=== PATIENT | male | born 1965 | race Asian ===

== ENCOUNTER 2025-02-13 15:23 | Outpatient (AMB) | payer MEDICARE, BC, SELFPAY ==
--- OUTSIDE RECORDS SUMMARY | 2025-02-13 10:25 | XMS_ITS | Continuity of Care Document ---
Author Name [facility] Organization [facility] Care Team Providers Care Acoustical Engineer Name Role Phone [facility] Unavailable Unavailable Problems Combined list of problems from Department of Defense and Veterans Affairs facilities. It does not include entries that were removed or entered in error. Problem Status Onset Date Problem Type Date of Resolution Comments Source Back pain Active 000 Condition December 09, 2024 Entered By: MARIE ARMANDO Comment: Herniated Disc L4-5 1999 [facility] Anxiety Active Condition [facility] Asthma (SCT [id number]) Active Condition [facility] Galeana esophagus Active Condition 2024 Entered By: MELONIE LYNN Comment: routine EGDs per gastro [facility] Bilateral hearing loss Active Condition Jan 02, 2025 Entered By: MELONIE LYNN Comment: getting hearing aids [facility] Chronic back pain Active Condition [facility] Chronic post-traumatic stress disorder Active Condition [facility] Exposure to Hepatitis B virus Active Condition Jan 02, 2025 Entered By: MELONIE LYNN Comment: follows w/ Gastro/ annual viral loads [facility] Gastroesophageal reflux disease Active Condition [facility] Hypercholesterolemia Active Condition [facility] Kidney stone Active Condition Jan 02, 2025 Entered By: MELONIE LYNN Comment: x 2 s/p stone extraction 2022 [facility] Large prostate Active Condition November 272024 Entered By: MARIE ARMANDO Comment: with surg [facility] Laser Enucleation of the prostateMay 2024 Entered By: MARIE ARMANDO Comment: TURP 2024 [facility] Overactive Urinary Bladder ([facility] [id number]) Active Condition Jan 02, 2025 Entered By: MELONIE LYNN Comment: mariah w Urol ([facility]) [facility] Psoriasis Active Condition [facility] Diagnosis: ICD-10-CM F43.12 Post-traumatic stress disorder, chronic Active Diagnosis [facility] Diagnosis: ICD-10-CM Z46.1 Encounter for fitting and adjustment of hearing aid Active Diagnosis [facility] Diagnosis: ICD-10-CM F41.9 Anxiety disorder, unspecified Active Diagnosis [facility] Diagnosis: ICD-10-CM H90.3 Sensorineural hearing loss, bilateral Active Diagnosis [facility] Diagnosis: ICD-10-CM Z02.89 Encounter for other administrative examinations Active Diagnosis [facility] Medications Combined list of outpatient medications from Department of Defense and Veterans Affairs facilities.Medications provided include 1) outpatient medications from the last 15 months, and 2) patient-reported medications. Medication Details Route Status Patient Instructions Prescription Expires Prescription Number Last Dispense Date Ordering Provider Order Date Order Qty Source APREMILAST 30MG TAB TAKE ONE TABLET BY MOUTH TWICE DAILY ORAL ACTIVE EVON LEAL 2024 [facility] ESCITALOPRA M OXALATE 20MG TAB TAKE ONE-HALF TABLET BY MOUTH ONCE DAILY ORAL ACTIVE EVON LEAL 2024 [facility] IBUPROFEN TAB TAKE 200 MG BY MOUTH EVERY 8 HOURS NEEDED ORAL ACTIVE EVON LEAL 2024 [facility] MIRABEGRON 50MG TAB,SA TAKE ONE TABLET BY MOUTH TWICE DAILY ORAL ACTIVE [facility]ON LEAL 2024 [facility] OMEPRAZOLE 20MG CAP,EC TAKE 2 CAPSULES BY MOUTH EVERY MORNING 30 MINUTES BEFORE BREAKFAS T ORAL ACTIVE [facility]EV[facility] SEGOVIAZABETH 2024 [facility] ROSUVASTATI N CA 10MG TAB TAKE ONE-HALF TABLET BY MOUTH ONCE DAILY ORAL ACTIVE [facility],EVON RUSSOBETH 2024 [facility] TADALAFIL 5MG TAB TAKE ONE TABLET BY MOUTH NEEDED ORAL ACTIVE [facility],EVON RUSSOBETH 2024 [facility] TROSPIUM CL 20MG TAB TAKE ONE TABLET BY MOUTH ONCE DAILY ORAL ACTIVE [facility],EVON RUSSOBETH 2024 [facility] Allergies, Adverse Reactions, Alerts Combined list of allergies from Department of Defense and Veterans Affairs facilities. It does not include entries that were removed or entered in error. Substance Category Reaction Severity Reaction type Status Date Reported Comments Source CONTRAST MEDIA Propensity to adverse reactions to drug (finding) Eruption active [facility] Immunizations Combined list of available immunizations from the Department of Defense and Veterans Affairs facilities. Immunization Series Date Given Administered By Site Reaction Lot Number CVX Code Drug Clerical Grader Status Comments Source INFLUENZA, UNSPECIFIED FORMULATION 2023 88 complet ed HISTORICA L INFORMATI ON - FROM OTHER [facility] Results Combined list of recent chemistry, hematology and other laboratory results from Department of Defense and Veterans Affairs, ranging from 15 months to all on record, depending upon the facility. Order Name Results Value Reference Range Date Interpretation Specimen Comments Source HEPATITI S Be ANTIBODY (QU) HEPATITIS B VIRUS E AB [PRESENCE] IN SERUM Reactive 12/09 Specimen Type: SERUM Comment: normalcy status - Abnormal Reference range: Nonreactive For additional information , please refer to [email or web address] (This link is being provided for information al/ educational purposes only.) Test Performed by [facility], [facility], [address] [place], [place] Arturo Coello M.D., Ph.D., Director of Laboratorie s , CLIA [id number] TEST PERFORMED AT: , Ordering Provider: KAITLYNN EASTON Report Released Date/Time: December 09, 2024 10:31 AM Reporting Lab: [facility] [place] [facility] [address] [facility] [address] Performing Lab: [place] [facility] [place] [facility] [address] [facility] [place] [facility] CBC LEUKOCYTES [#/VOLUME] IN BLOOD BY AUTOMATED COUNT 4.38 10*3/uL 4.50 - 11.00 12/09 L Specimen Type: BLOOD No comment entered. Ordering Provider: KAITLYNN EASTON Report Released Date/Time: December 09, 2024 10:31 AM Reporting Lab: [place] [facility] [place] [facility] [address] [facility] [address] Performing Lab: [facility] [place] [facility] [address] [facility] [address] [facility] [place] [facility] CBC ERYTHROCYT ES [#/VOLUME] IN BLOOD BY AUTOMATED COUNT 5.36 10*6/uL 4.23 - 5.66 12/09 Specimen Type: BLOOD No comment entered. Ordering Provider: KAITLYNN EASTON Report Released Date/Time: December 09, 2024 10:31 AM Reporting Lab: [place] [facility] [place] [facility] [address] [facility] [address] Performing Lab: [place] [facility] [place] [facility] [address] [facility] [address] [facility] [place] [facility] CBC HEMOGLOBIN [MASS/VOLU ME] IN BLOOD 15.2 g/dL 12.8 - 17 12/09 Specimen Type: BLOOD No comment entered. Ordering Provider: KAITLYNN EASTON Report Released Date/Time: December 09, 2024 10:31 AM Reporting Lab: [facility] [address] [facility] [address] Performing Lab: [facility] [address] [facility] [address] [facility] [place] [facility] CBC HEMATOCRIT [VOLUME FRACTION] OF BLOOD BY AUTOMATED COUNT 45.9 39.2 - 50.4 12/09 Specimen Type: BLOOD No comment entered. Ordering Provider: KAITLYNN EASTON Report Released Date/Time: December 09, 2024 10:31 AM Reporting Lab: [facility] [address] [facility] [address] Performing Lab: [facility] [address] [facility] [address] [facility] [place] [facility] CBC MCV [ENTITIC VOLUME] BY AUTOMATED COUNT 85.6 fL 82 - 99 12/09 Specimen Type: BLOOD No comment entered. Ordering Provider: KAITLYNN EASTON Report Released Date/Time: December 09, 2024 10:31 AM Reporting Lab: [facility] [address] [facility] [address] Performing Lab: [facility] [address] [facility] [address] [facility] [place] [facility] CBC MCHC [MASS/VOLU ME] BY AUTOMATED COUNT 33.1 g/dL 30.8 - 35.1 12/09 Specimen Type: BLOOD No comment entered. Ordering Provider: KAITLYNN EASTON Report Released Date/Time: December 09, 2024 10:31 AM Reporting Lab: [facility] [address] [facility] [address] Performing Lab: [facility] [address] [facility] [address] [facility] [place] [facility] CBC PLATELETS [#/VOLUME] IN BLOOD BY AUTOMATED COUNT 217 10*3/uL 140 - 360 12/09 Specimen Type: BLOOD No comment entered. Ordering Provider: KAITLYNN EASTON Report Released Date/Time: December 09, 2024 10:31 AM Reporting Lab: [facility] [place] [facility] [address] [facility] [address] Performing Lab: [facility] [place] [facility] [address] [facility] [address] [facility] [place] [facility] CBC PLATELET MEAN VOLUME [ENTITIC VOLUME] IN BLOOD BY AUTOMATED COUNT 10.5 fL 9.2 - 12.4 12/09 Specimen Type: BLOOD No comment entered. Ordering Provider: KAITLYNN EASTON Report Released Date/Time: December 09, 2024 10:31 AM Reporting Lab: [facility] [place] [facility] [address] [facility] [address] Performing Lab: [facility] [place] [facility] [address] [facility] [address] [facility] [place] [facility] CBC ERYTHROCYT E DISTRIBUTI ON WIDTH [RATIO] BY AUTOMATED COUNT 13.2 12.0 - 16.0 12/09 Specimen Type: BLOOD No comment entered. Ordering Provider: KAITLYNN EASTON Report Released Date/Time: December 09, 2024 10:31 AM Reporting Lab: [facility] [place] [facility] [address] [facility] [address] Performing Lab: [facility] [place] [facility] [address] [facility] [address] [facility] [place] [facility] CBC MCH [ENTITIC MASS] BY AUTOMATED COUNT 28.4 pg 26.2 - 32.6 12/09 Specimen Type: BLOOD No comment entered. Ordering Provider: KAITLYNN EASTON Report Released Date/Time: December 09, 2024 10:31 AM Reporting Lab: [facility] [place] [facility] [address] [facility] [address] Performing Lab: [facility] [address] [facility] [address] [facility] LIVER FUNCTION PROTEIN [MASS/VOLU ME] IN SERUM OR PLASMA 7.6 g/dL 6.4 - 8.3 12/09 Specimen Type: SERUM No comment entered. Ordering Provider: KAITLYNN EASTON Report Released Date/Time: December 09, 2024 10:31 AM Reporting Lab: [facility] [place] [facility] [address] [facility] [address] Performing Lab: [facility] [place] [facility] [address] [facility] [address] [facility] LIVER FUNCTION ALBUMIN [MASS/VOLU ME] IN SERUM OR PLASMA BY BROMOCRESO L PURPLE (BCP) DYE BINDING METHOD 4.5 g/dL 3.5 - 5.2 12/09 Specimen Type: SERUM No comment entered. Ordering Provider: KAITLYNN EASTON Report Released Date/Time: December 09, 2024 10:31 AM Reporting Lab: [facility] [place] [facility] [address] [facility] [address] Performing Lab: [facility] [place] [facility] [address] [facility] [address] [facility] LIVER FUNCTION ALKALINE PHOSPHATAS E [ENZYMATIC ACTIVITY/V OLUME] IN SERUM OR PLASMA 65 U/L 40 - 150 12/09 Specimen Type: SERUM No comment entered. Ordering Provider: KAITLYNN EASTON Report Released Date/Time: December 09, 2024 10:31 AM Reporting Lab: [facility] [address] [facility] [address] Performing Lab: [facility] [place] [facility] [address] [facility] [address] [facility] [place] [facility] LIVER FUNCTION ASPARTATE AMINOTRANS FERASE [ENZYMATIC ACTIVITY/V OLUME] IN SERUM OR PLASMA BY WITH P-5'-P 25 U/L 5 - 34 12/09 Specimen Type: SERUM No comment entered. Ordering Provider: KAITLYNN EASTON Report Released Date/Time: December 09, 2024 10:31 AM Reporting Lab: [facility] [place] [facility] [address] [facility] [address] Performing Lab: [place] [facility] [place] [facility] [address] [facility] [address] [facility] [facility] LIVER FUNCTION ALANINE AMINOTRANS FERASE [ENZYMATIC ACTIVITY/V OLUME] IN SERUM OR PLASMA BY WITH P-5'-P 37 U/L 0 - 55 12/09 Specimen Type: SERUM No comment entered. Ordering Provider: KAITLYNN EASTON Report Released Date/Time: December 09, 2024 10:31 AM Reporting Lab: [facility] [place] [facility] [address] [facility] [address] Performing Lab: [place] [facility] [place] [facility] [address] [facility] [address] [facility] LIVER FUNCTION BILIRUBIN. TOTAL [MASS/VOLU ME] IN SERUM OR PLASMA 0.7 mg/dL 0.2 - 1.2 12/09 Specimen Type: SERUM No comment entered. Ordering Provider: KAITLYNN EASTON Report Released Date/Time: December 09, 2024 10:31 AM Reporting Lab: [facility] [place] [facility] [address] [facility] [address] Performing Lab: [place] [facility] [place] [place] [facility] [address] [facility] [address] [facility] [place] [facility] BASIC METABOLI C PANEL (fasting ) UREA NITROGEN [MASS/VOLU ME] IN SERUM OR PLASMA 22 mg/dL 8 - 26 12/09 Specimen Type: SERUM No comment entered. Ordering Provider: KAITLYNN EASTON Report Released Date/Time: December 09, 2024 10:31 AM Reporting Lab: [facility] [place] [facility] [address] [facility] [address] Performing Lab: [facility] [place] [facility] [address] [facility] [address] [facility] [place] [facility] BASIC METABOLI C PANEL (fasting ) GLUCOSE [MASS/VOLU ME] IN SERUM OR PLASMA 90 mg/dL 65 - 100 12/09 Specimen Type: SERUM No comment entered. Ordering Provider: KAITLYNN EASTON Report Released Date/Time: December 09, 2024 10:31 AM Reporting Lab: [facility] [place] [facility] [address] [facility] [address] Performing Lab: [place] [facility] [facility] [address] [facility] [address] [facility] BASIC METABOLI C PANEL (fasting ) SODIUM [MOLES/VOL UME] IN SERUM OR PLASMA 141 mmol/L 136 - 145 12/09 Specimen Type: SERUM No comment entered. Ordering Provider: KAITLYNN EASTON Report Released Date/Time: December 09, 2024 10:31 AM Reporting Lab: [facility] [place] [facility] [address] [facility] [address] Performing Lab: [facility] [place] [facility] [address] [facility] [address] [facility] [place] [facility] BASIC METABOLI C PANEL (fasting ) POTASSIUM [MOLES/VOL UME] IN SERUM OR PLASMA 4.2 mmol/L 3.5 - 5.1 12/09 Specimen Type: SERUM No comment entered. Ordering Provider: KAITLYNN EASTON Report Released Date/Time: December 09, 2024 10:31 AM Reporting Lab: [facility] [place] [facility] [address] [facility] [address] Performing Lab: [facility] [facility] [address] [facility] [address] [facility] [place] [facility] BASIC METABOLI C PANEL (fasting ) CHLORIDE [MOLES/VOL UME] IN SERUM OR PLASMA 108 mmol/L 98 - 107 12/09 H Specimen Type: SERUM No comment entered. Ordering Provider: KAITLYNN EASTON Report Released Date/Time: December 09, 2024 10:31 AM Reporting Lab: [facility] [place] [facility] [address] [facility] [address] Performing Lab: [place] [facility] [address] [facility] [address] [facility] BASIC METABOLI C PANEL (fasting ) CARBON DIOXIDE, TOTAL [MOLES/VOL UME] IN SERUM OR PLASMA 26 meq/L 22 - 29 12/09 Specimen Type: SERUM No comment entered. Ordering Provider: KAITLYNN EASTON Report Released Date/Time: December 09, 2024 10:31 AM Reporting Lab: [facility] [place] [address] [address] Performing Lab: [facility] [address] [address] [facility] BASIC METABOLI C PANEL (fasting ) CALCIUM [MASS/VOLU ME] IN SERUM OR PLASMA 9.9 mg/dL 8.4 - 10.2 12/09 Specimen Type: SERUM No comment entered. Ordering Provider: KAITLYNN EASTON Report Released Date/Time: December 09, 2024 10:31 AM Reporting Lab: [place] [facility] [place] [address] [address] Performing Lab: [place] [facility] [place] [address] [address] [facility] BASIC METABOLI C PANEL (fasting ) CREATININE [MASS/VOLU ME] IN SERUM OR PLASMA 0.99 mg/dL 0.72 - 1.25 12/09 Specimen Type: SERUM No comment entered. Ordering Provider: KAITLYNN EASTON Report Released Date/Time: December 09, 2024 10:31 AM Reporting Lab: [facility] [place] [facility] [address] [facility] [address] Performing Lab: [facility] [place] [facility] [address] [facility] [address] [facility] [place] [facility] BASIC METABOLI C PANEL (fasting ) GLOMERULAR FILTRATION RATE/1.73 SQ M.PREDICTE D [VOLUME RATE/AREA] IN SERUM, PLASMA OR BLOOD BY CREATININE -BASED FORMULA (CKD-EPI 2020) 88 mL/min 60 12/09 Specimen Type: SERUM No comment entered. Ordering Provider: KAITLYNN EASTON Report Released Date/Time: December 09, 2024 10:31 AM Reporting Lab: [facility] [place] [facility] [address] [facility] [address] Performing Lab: [place] [facility] [place] [facility] [address] [facility] [address] [place] [facility] [place] [facility] LIPID PANEL FASTING CHOLESTERO L [MASS/VOLU ME] IN SERUM OR PLASMA 217 mg/dL 12/09 H Specimen Type: SERUM No comment entered. Ordering Provider: KAITLYNN EASTON Report Released Date/Time: December 09, 2024 10:31 AM Reporting Lab: [facility] [place] [address] [address] Performing Lab: [facility] [place] [facility] [address] [facility] [address] [facility] [place] [facility] LIPID PANEL FASTING TRIGLYCERI DE [MASS/VOLU ME] IN SERUM OR PLASMA 76 mg/dL 0 - 150 12/09 Specimen Type: SERUM No comment entered. Ordering Provider: KAITLYNN EASTON Report Released Date/Time: December 09, 2024 10:31 AM Reporting Lab: [facility] [place] [facility] [address] [facility] [address] Performing Lab: [facility] [place] [place] [address] [address] [place] [facility] [place] [facility] LIPID PANEL FASTING CHOLESTERO L IN LDL [MASS/VOLU ME] IN SERUM OR PLASMA BY CALCULATAWANNA N 149 mg/dL 0 - 129 12/09 H Specimen Type: SERUM No comment entered. Ordering Provider: KAITLYNN EASTON Report Released Date/Time: December 09, 2024 10:31 AM Reporting Lab: [facility] [place] [facility] [address] [facility] [address] Performing Lab: [facility] [place] [facility] [address] [facility] [address] [place] [facility] [place] [facility] LIPID PANEL FASTING CHOLESTERO L.TOTAL/CH OLESTEROL IN HDL [MASS RATIO] IN SERUM OR PLASMA 4.1 12/09 Specimen Type: SERUM No comment entered. Ordering Provider: KAITLYNN EASTON Report Released Date/Time: December 09, 2024 10:31 AM Reporting Lab: [facility] [place] [facility] [address] [facility] [address] Performing Lab: [facility] [place] [facility] [address] [facility] [address] [facility] [place] [facility] LIPID PANEL FASTING CHOLESTERO L IN HDL [MASS/VOLU ME] IN SERUM OR PLASMA 53 mg/dL 40 12/09 Specimen Type: SERUM No comment entered. Ordering Provider: KAITLYNN EASTON Report Released Date/Time: December 09, 2024 10:31 AM Reporting Lab: [facility] [place] [facility] [address] [facility] [address] Performing Lab: [facility] [place] [facility] [address] [facility] [address] [facility] [place] [facility] PSA PROSTATE SPECIFIC AG [MASS/VOLU ME] IN SERUM OR PLASMA BY IMMUNOASSA Y 0.9 ng/mL 0.0 - 4.0 12/09 Specimen Type: SERUM No comment entered. Ordering Provider: KAITLYNN EASTON Report Released Date/Time: December 09, 2024 10:31 AM Reporting Lab: [facility] [place] [facility] [address] [facility] [address] Performing Lab: [facility] [place] [facility] [address] [facility] [address] [facility] [place] URINALYS IS COLOR OF URINE Light-Ye llow 12/09 Specimen Type: URINE Comment: If Glucose = >500 and Ketones are positive, please alert the Physician. Ordering Provider: KAITLYNN EASTON Report Released Date/Time: December 09, 2024 10:31 AM Reporting Lab: [facility] [place] [facility] [address] [facility] [address] Performing Lab: [facility] [place] [facility] [address] [facility] [address] [facility] [place] [facility] URINALYS IS APPEARANCE OF URINE Clear 12/09 Specimen Type: URINE Comment: If Glucose = >500 and Ketones are positive, please alert the Physician. Ordering Provider: KAITLYNN EASTON Report Released Date/Time: December 09, 2024 10:31 AM Reporting Lab: [facility] [place] [facility] [address] [facility] [address] Performing Lab: [facility] [place] [facility] [address] [facility] [address] [facility] [place] [facility] URINALYS IS GLUCOSE [MASS/VOLU ME] IN URINE Normalmg /dL 12/09 Specimen Type: URINE Comment: If Glucose = >500 and Ketones are positive, please alert the Physician. Ordering Provider: KAITLYNN EASTON Report Released Date/Time: December 09, 2024 10:31 AM Reporting Lab: [facility] [address] [facility] [id number] Performing Lab: [facility] [address] [facility] [id number] [facility] URINALYS IS KETONES [MASS/VOLU ME] IN URINE BY TEST STRIP NEGATIVE mg/dL 12/09 Specimen Type: URINE Comment: If Glucose = >500 and Ketones are positive, please alert the Physician. Ordering Provider: KAITLYNN EASTON Report Released Date/Time: December 09, 2024 10:31 AM Reporting Lab: [facility] [address] [facility] [address] Performing Lab: [facility] [address] [facility] [address] [facility] URINALYS IS ERYTHROCYT ES [PRESENCE] IN URINE SEDIMENT BY LIGHT MICROSCOPY NEGATIVE mg/dL 12/09 Specimen Type: URINE Comment: If Glucose = >500 and Ketones are positive, please alert the Physician. Ordering Provider: KAITLYNN EASTON Report Released Date/Time: December 09, 2024 10:31 AM Reporting Lab: [facility] [place] [facility] [address] [facility] [address] Performing Lab: [facility] [address] [facility] [address] [facility] URINALYS IS PROTEIN [MASS/VOLU ME] IN URINE BY TEST STRIP 20 mg/dL 12/09 Specimen Type: URINE Comment: If Glucose = >500 and Ketones are positive, please alert the Physician. Ordering Provider: KAITLYNN EASTON Report Released Date/Time: December 09, 2024 10:31 AM Reporting Lab: [facility] [address] [facility] [address] Performing Lab: [facility] [address] [facility] [address] [facility] URINALYS IS NITRITE [PRESENCE] IN URINE NEGATIVE mg/dL 12/09 Specimen Type: URINE Comment: If Glucose = >500 and Ketones are positive, please alert the Physician. Ordering Provider: KAITLYNN EASTON Report Released Date/Time: December 09, 2024 10:31 AM Reporting Lab: [facility] [place] [facility] [address] [facility] [address] Performing Lab: [facility] [place] [facility] [address] [facility] [address] [facility] URINALYS IS BILIRUBIN. TOTAL [PRESENCE] IN URINE NEGATIVE mg/dL 12/09 Specimen Type: URINE Comment: If Glucose = >500 and Ketones are positive, please alert the Physician. Ordering Provider: KAITLYNN EASTON Report Released Date/Time: December 09, 2024 10:31 AM Reporting Lab: [facility] [place] [address] [address] Performing Lab: [facility] [place] [address] [address] [facility] URINALYS IS SPECIFIC GRAVITY OF URINE BY REFRACTOME TRY 1.027 1.016 - 1.022 12/09 H Specimen Type: URINE Comment: If Glucose = >500 and Ketones are positive, please alert the Physician. Ordering Provider: KAITLYNN EASTON Report Released Date/Time: December 09, 2024 10:31 AM Reporting Lab: [facility] [place] [address] [address] Performing Lab: [facility] [place] [facility] [address] [facility] [address] [facility] [facility] URINALYS IS PH OF URINE BY TEST STRIP 7.0 5.0 - 9.0 12/09 Specimen Type: URINE Comment: If Glucose = >500 and Ketones are positive, please alert the Physician. Ordering Provider: KAITLYNN EASTON Report Released Date/Time: December 09, 2024 10:31 AM Reporting Lab: [facility] [place] [address] Performing Lab: [facility] [place] [facility] [address] [facility] [address] [facility] URINALYS IS UROBILINOG EN [MASS/VOLU ME] IN URINE BY TEST STRIP Normalmg /dL <2.0 - 2.0 12/09 Specimen Type: URINE Comment: If Glucose = >500 and Ketones are positive, please alert the Physician. Ordering Provider: KAITLYNN EASTON Report Released Date/Time: December 09, 2024 10:31 AM Reporting Lab: [facility] [place] [facility] [address] [facility] [address] Performing Lab: [facility] [place] [facility] [address] [facility] [address] [facility] URINALYS IS LEUKOCYTE ESTERASE [PRESENCE] IN URINE BY TEST STRIP SMALL 12/09 Specimen Type: URINE Comment: If Glucose = >500 and Ketones are positive, please alert the Physician. Ordering Provider: KAITLYNN EASTON Report Released Date/Time: December 09, 2024 10:31 AM Reporting Lab: [facility] [place] [facility] [address] [facility] [address] Performing Lab: [facility] [place] [facility] [address] [facility] [address] [facility] HEPATITI S C ANTIBODY (HCV)-AR C HEPATITIS C VIRUS AB [PRESENCE] IN SERUM NON-REAC TIVE 12/09 Specimen Type: SERUM Comment: Hep C Ab: No HCV antibody detected. If recent infection is suspected or other evidence suggests HCV infection, consider HCV nucleic acid testing Ordering Provider: KAITLYNN EASTON Report Released Date/Time: December 09, 2024 10:31 AM Reporting Lab: [facility] [place] [facility] [address] [facility] [address] Performing Lab: [facility] [place] [facility] [address] [facility] [address] [facility] HIV 1&2 Ag/Ab SCREEN HIV 1+2 AB+HIV1 P24 AG [PRESENCE] IN SERUM OR PLASMA BY IMMUNOASSA Y NON-REAC TIVE 12/09 Specimen Type: SERUM Comment: Hep C Ab: No HCV antibody detected. If recent infection is suspected or other evidence suggests HCV infection, consider HCV nucleic acid testing Ordering Provider: KAITLYNN EASTON Report Released Date/Time: December 09, 2024 10:31 AM Reporting Lab: [facility] [place] [facility] [address] [facility] [address] Performing Lab: [facility] [address] [facility] [address] [facility] MICROSCO PIC AUTOMATE D, URINE LEUKOCYTES [#/AREA] IN URINE SEDIMENT BY MICROSCOPY HIGH POWER FIELD 11-20/[H PF] 0 - 5 12/09 H Specimen Type: URINE Comment: If Glucose = >500 and Ketones are positive, please alert the Physician. Ordering Provider: KAITLYNN EASTON Report Released Date/Time: December 09, 2024 10:31 AM Reporting Lab: [facility] [place] [facility] [address] [facility] [address] Performing Lab: [facility] [address] [facility] [address] [facility] MICROSCO PIC AUTOMATE D, URINE MUCUS [#/AREA] IN URINE SEDIMENT BY MICROSCOPY LOW POWER FIELD FEW/[LPF ] 12/09 Specimen Type: URINE Comment: If Glucose = >500 and Ketones are positive, please alert the Physician. Ordering Provider: KAITLYNN EASTON Report Released Date/Time: December 09, 2024 10:31 AM Reporting Lab: [facility] [place] [facility] [address] [facility] [address] Performing Lab: [facility] [address] [facility] [address] [facility] MICROSCO PIC AUTOMATE D, URINE ERYTHROCYT ES [#/AREA] IN URINE SEDIMENT BY MICROSCOPY HIGH POWER FIELD 6-10/[HP F] 0 - 3 12/09 H Specimen Type: URINE Comment: If Glucose = >500 and Ketones are positive, please alert the Physician. Ordering Provider: KAITLYNN EASTON Report Released Date/Time: December 09, 2024 10:31 AM Reporting Lab: [facility] [address] [facility] [address] Performing Lab: [facility] [address] [facility] [address] [facility] Vital Signs Combined list of inpatient and outpatient Vital Signs from Department of Defense and Veterans Affairs, ranging from 12 months to all on record, depending upon the facility. Vital Sign Value Date Comments Source SYSTOLIC BLOOD PRESSURE 122 01/02/20 25 10:06:04 [facility] DIASTOLIC BLOOD PRESSURE 82 025 10:06:04 [facility] PULSE OXIMETRY 97 % 01/01/2025 10:06:04 [facility] WEIGHT 163.5 01/01/2025 10:06:04 [facility] BMI 25 kg/m2 01/01/2025 10:06:04 [facility] PAIN 3 01/01/2025 10:06:04 [facility] HEIGHT 68 01/01/2025 10:06:04 [facility] TEMPERATURE 98 01/01/2025 10:06:04 [facility] PULSE 86 01/01/2025 10:06:04 [facility] RESPIRATION 16 01/01/2025 10:06:04 [facility] SYSTOLIC BLOOD PRESSURE 156 12/10/19 25 09:15:02 [facility] DIASTOLIC BLOOD PRESSURE 98 025 09:15:02 [facility] PULSE OXIMETRY 96 12/09/2024 09:15:02 [facility] WEIGHT 162 12/09/2024 09:15:02 [facility] BMI 25 kg/m2 12/09/2024 09:15:02 [facility] PAIN 3 12/09/2024 09:15:02 [facility] HEIGHT 68 12/09/2024 09:15:02 [facility] TEMPERATURE 98 12/09/2024 09:15:02 [facility] PULSE 97 12/09/2024 09:15:02 [facility] RESPIRATION 20 12/09/2024 09:15:02 [facility] Encounters Combined list of: 1) Encounters from Department of Veterans Affairs facilities going backup to the last 18 months, not all VA inpatient encounters are included; 2) Encounters from the Department of Defense facilities going backup to 280 months. Location Location Details Encounter Type Encounter Number Reason For Visit Attending Provider ADM Date DC Date Status Disposition Source [facility] Outpatient Encounter [id number] 04/29 [facility] Outpatient Encounter [id number] Diagnos is: ICD-10- CM Z02.89 Encount er for other adminis trative examina CAMDEN Ramires 09/01 [facility] Out[facility] Encounter [id number] 12/04 [facility] Out[facility] Encounter [id number] 12/08 [facility] HEARING AID XM&SLCTN BINAURL [id number] Diagnos is: ICD-10- CM H90.3 Sensori neural hearing loss, bilater al ,DAVID OLE L 12/09 [facility] Out[facility] Encounter [id number] 12/09 [facility] OFFICE O/P NEW MOD 45 MIN [id number] Diagnos is: ICD-10- CM F41.9 Anxiety disorde r, unspeci fied PHYLICIA CAMP 01/01 [facility] CONFORMITY EVALUATION [id number] Diagnos is: ICD-10- CM Z46.1 Encount er for fitting and adjustm ent of hearing aid SENIOR,DAVID OLE L 01/01 [facility] PSYCH DIAGNOSTIC EVALUATION [id number] Diagnos is: ICD-10- CM F43.12 Post-tr aumatic stress disorde r, chronic LISA SUBRAMANIAN M 01/09 [facility] Out[facility] Encounter [id number] LISA SOARES 01/09 [facility] PSYCH DIAGNOSTIC EVALUATION [id number] Diagnos is: ICD-10- CM F43.12 Post-tr aumatic stress disorde r, chronic PAIGE AMADO 02/03 [facility] Social History Combined list of available smoking, tobacco, and other social history from Department of Defense and Veterans Affairs facilities. Social History Type Response Date Comment Sourc e Tobacco smoking status NHIS AL-TOBACCO NEVER USED CIGARETTES 12/08/2024 [facility] History of tobacco use AL-TOBACCO NEVER USED OTHER TYPE 12/08/2024 [facility] Plan of Care List of future care activities from Department of Veterans Affairs facilities. Additional future care activities may be listed in the Assessment and Plan section. Date/Time Care Activity Care Activity Detail Facili ty 06/16/2025 AMBULATORY - MEDICINE AMBULATORY - MEDICI NE [facility]
--- OUTSIDE RECORDS SUMMARY | 2025-02-13 15:26 | XMS_ITS | Data Portability ---
Author Organization [facility] Address [address] [place] [address] Care Team Providers Care Drum Handler Name Role Phone CHERYL SENIOR Primary Care Provider [phone] CHERYL SENIOR Referring Provider Assessment Encounter Date Assessment Date Assessment LastModified by Organization Details LastModified Time 12/06/2023 12/06/2023 58 year old M presenting to discuss history of his multiple prostate procedures and upcoming plan for urocuff procedure. Sending referral for second opinion. Refilling current medications. [email or web address] Not available 12/14/2023 11:46:05 03/25/2024 03/25/2024 58 yo M here for CPE and pre op. [email or web address] Not available 03/26/2024 07:47:16 Plan of Treatment Reminders Order Date Submit Date Provider Last Modified By Organization Details Last Modified Time Details Appointments PCP-Phys ical-30 Min 2024 03:30P M CHERYL SENIOR MD Not available Not available Not available Lab culture, urine 2024 025 [facility], [address] [place], [address], 09/08/2024 03:19:02 urinalys is, dipstick , reflex micro 2024 025 [employer] [facility], [address] [place], [address], 09/08/2024 03:19:02 hepatiti s B DNA, quant, PCR, serum 2023 024 [facility], [address], [place], [address], 03/27/2024 16:11:20 HbA1c (hemoglo bin A1c), blood 2023 024 [facility], [address], [place], [address], 03/25/2024 18:15:44 lipid panel, serum 2023 024 [facility], [address], [place], [address], 03/25/2024 18:19:19 CMP, serum or plasma 2023 024 [facility], [address] , [place], [address], 03/25/2024 18:19:18 [email or web address] [address] , [place], [address], 04/29/2024 10:41:14 microalb umin, urine 2023 024 [facility], [address] , [place], [address], 03/25/2024 17:23:57 TSH + free T4, serum 2023 024 [facility], [address] , [place], [address], 03/25/2024 18:19:19 hepatiti s C virus Ab, serum 2023 024 [facility], [address] , [place], [address], 03/25/2024 17:59:29 ferritin , serum or plasma 2022 023 [facility], [address], [place], [address], 12/14/2022 17:19:14 hepatic function panel, serum 2022 023 [facility], [address] [place], [address], 12/14/2022 17:10:39 alpha-1- antitryp sin (aat), QN, serum 2022 023 [facility], [address] [place], [address], 12/15/2022 08:13:41 hepatiti s B core Ab, total, serum 2022 023 [facility], [address] [place], [address], 12/14/2022 19:54:18 hepatiti s C virus Ab, serum 2022 023 [facility], [address] [place], [address], 12/14/2022 19:54:19 HBsAg (hepatit is B surface Ag), quantita tive, serum 2022 023 [facility], [address] [place], [address], 12/19/2022 07:04:52 HbA1c (hemoglo bin A1c), blood 2022 023 [facility], [address] [place], [address], 12/14/2022 16:59:29 TSH, serum, reflex free T4 2022 023 [facility], [address] [place], [address], 12/14/2022 17:10:41 lipid panel, serum 2022 023 [facility], [address] [facility], [place], [address], 12/14/2022 17:10:40 CMP, serum or plasma 2022 023 [facility], [address] [place], [address], 12/14/2022 17:10:37 CBC 2022 023 [facility], [address] [place], [address], 12/14/2022 16:35:26 prostate specific Ag, serum or plasma 2022 023 [facility], [address] [place], [address], 12/14/2022 17:17:28 microalb umin, urine 2022 023 [facility], [address] [place], [address], 12/14/2022 16:43:04 Referral dermatol ogist referral 2023 024 ROMINA Fulton MD, [address], [place], [address], 12/31/2024 04:01:34 urologis t referral - Patient is looking for second opinion, informat ion about pros and cons of urocuff procedur e. He has had multiple urologic surgerie s (Urolift procedur e in [facility] in [address] Gutierrez , PAE at [facility] 06/28/[address] Jacobsen). Has plan for urocuff, plans for holmium laser prostate surgery (HeLEP) Mar 2024 at [facility]. He is concerne d about the side effects and would like to seek expert second opinion. 2023 024 [email or web address] [facility], [address], [place], [address], 04/22/2024 18:41:51 Procedures None recorded . Surgeries None recorded . Imaging electroc vic lara 2023 024 katia [facility], [address] [place], [address], 03/26/2024 07:47:29 MRI, abdomen, w/o contrast - chronic hep b, dilated CBD, liver cysts 2023 024 [email or web address] [facility], [address], [place], [address], 03/24/2024 13:35:08 MRI, lumbar spine, w/o contrast 2022 023 [facility] ([facility]), [address] [place] [address] [address], [place], [address], 02/26/2023 14:25:43 Medication Orders sulfamet hoxazole 800 mg-trime thoprim 160 mg tablet 2024 025 ROMINA Not available 09/04/2024 15:29:00 escitalo pram 10 mg tablet 2024 025 [email or web address] Not available 12/29/2024 16:20:02 ibuprofe n 600 mg tablet 2024 025 ROMINA Not available 09/04/2024 15:39:59 omeprazo le 20 mg capsule, delayed release 2023 024 [email or web address] Not available 03/27/2024 10:42:59 tadalafi l 5 mg tablet 2023 024 [email or web address] Not available 12/14/2023 11:37:07 omeprazo le 20 mg capsule, delayed release 2023 024 ROMINA Not available 12/06/2023 15:08:02 predniso ne 50 mg tablet 2022 023 [id number], [address] [place] [place], [id number], 12/06/2023 14:05:22 Patient TargetsNo targets recorded. Patient InstructionsNo instructions recorded. Reason for Referral Urologist Referral for Elvia ramirez of urine Patient is looking for second opinion, information about pros and cons of urocuff procedure. He has had multiple urologic surgeries (Urolift procedure in [facility] in [address] Gutierrez, PAE at [facility] 06/28/[address] Jacobsen). Has plan for urocuff, plans for holmium laser prostate surgery (HeLEP) Mar 2024 at [facility]. He is concerned about the side effects and would like to seek expert second opinion. 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 Referral for P soriasis Referring Physician: Cheryl Senior [facility], Encounter Date: 03/25/2024 Results Created Date Observation Date Name Description Value Unit Range Abnormal Flag Note LastModifiedBy Organization Detail LastModifiedTime 12/15/1912/14/2022 COMPL ETE BLOOD COUNT NO DIFF white blood count 5.08 K/uL 3.5-11 .0 normal Not Available [facility] [address] [place] [address], [address] 12/14/2022 16:35:26 12/15/1912/14/2022 COMPL ETE BLOOD COUNT NO DIFF red blood count 5.16 M/uL 3.90-5 .50 normal Not Available [facility] [address] [place] [address], [address] 12/14/2022 16:35:26 12/15/1912/14/2022 COMPL ETE BLOOD COUNT NO DIFF hemoglobin 14.9 g/dL 14.0-1 8.0 normal Not Available [facility] [address] [place] [address], [address] 12/14/2022 16:35:26 12/15/1912/14/2022 COMPL ETE BLOOD COUNT NO DIFF hematocrit 45.2 % 42.0-5 4.0 normal Not Available [facility] [address] [place] [address], [address] 12/14/2022 16:35:26 12/15/192023 COMPL ETE BLOOD COUNT NO DIFF mean corpuscular volume 87.6 fL 80.0-1 00.0 normal Not Available [facility] [address] [place] [address], [address] 12/14/2022 16:35:26 12/15/19 23 12/14/2022 COMPL ETE BLOOD COUNT NO DIFF mean corpuscular hemoglobin 28.9 pg 25.4-3 4.6 normal Not Available [facility] [address] [place] [address], [address] 12/14/2022 16:35:26 12/15/19 23 12/14/2022 COMPL ETE BLOOD COUNT NO DIFF mean corpuscular HGB conc 33.0 g/dL 31.0-3 7.0 normal Not Available [facility] [address] [place] [address], [address] 12/14/2022 16:35:26 12/15/19 23 12/14/2022 COMPL ETE BLOOD COUNT NO DIFF red cell distribution width 13.5 % 11.5-1 4.5 normal Not Available [facility] [address] [place] [address], [address] 12/14/2022 16:35:26 12/15/19 23 12/14/2022 COMPL ETE BLOOD COUNT NO DIFF platelet count 217 K/uL 150-40 0 normal Not Available [facility] [address] [place] [address], [address] 12/14/2022 16:35:26 12/15/19 23 12/14/2022 COMPL ETE BLOOD COUNT NO DIFF neutrophils absolute auto 3.80 K/uL 1.5-7. 5 normal Cauti on: Inter preta tion of ANC resul ts witho ut inclu tanvi of the WBC diffe renti al resul ts may lead to sonia eous diagn osis; for examp le, arielle ng myelo proli ferat bri or lymph oprol ifera tive disor ders. Not Available [facility] [address] [place] [address], [address] 12/14/2022 16:35:26 12/15/19 23 12/14/2022 MICRO ALBUM IN, RANDO M (W CREAT ) creatinine urine 213.60 mg/dL 39-259 normal Not Available [facility] [address] [place], [address] 12/14/2022 16:43:04 12/15/19 23 12/14/2022 MICRO ALBUM IN, RANDO M (W CREAT ) microalbumin urine 2.3 mg/dL 0-2.9 normal Not Available [facility] [address] [place], [address] 12/14/2022 16:43:04 12/15/19 23 12/14/2022 MICRO ALBUM IN, RANDO M (W CREAT ) microalbum/c reatinine ratio ur 10.8 ug/mg cre 0-29 normal Not Available [facility] [address] [place], [address] 12/14/2022 16:43:04 12/15/19 23 12/14/2022 HEMOG LOBIN A1C hemoglobin A1C % 5.4 % 4.0-5. 7 normal % of the total HgB Inter preta tion ----- ----- ----- --- ----- ----- ----- - <5.7 Consi stent with the absen ce of diabe mendoza 5.7-6 .4 Consi stent with incre ased risk for diabe mendoza (pred iabet es) > or = to 6.5 Consi stent with Diabe mendoza Not Available [facility] [address] [place] [address], [address] 12/14/2022 16:59:29 12/15/19 23 12/14/2022 COMPR EHENS BRI MET. PANEL sodium 141 mmol/ L 136-14 5 normal Not Available [facility] [address] [place], [address] 12/14/2022 17:10:37 12/15/19 23 12/14/2022 COMPR EHENS BRI MET. PANEL potassium 4.1 mmol/ L 3.5-5. 1 normal Not Available [facility] [address] [place], [address] 12/14/2022 17:10:37 12/15/19 23 12/14/2022 COMPR EHENS BRI MET. PANEL chloride 105 mmol/ L 98-107 normal Not Available [facility] [address] [place], [address] 12/14/2022 17:10:37 12/15/19 23 12/14/2022 COMPR EHENS BRI MET. PANEL carbon dioxide 25.0 mmol/ L 22-29 normal Not Available [facility] [address] [place], [address] 12/14/2022 17:10:37 12/15/19 23 12/14/2022 COMPR EHENS BRI MET. PANEL anion gap 15 mmol/ L 10-20 normal Not Available [facility] [address] [place], [address] 12/14/2022 17:10:37 12/15/19 23 12/14/2022 COMPR EHENS BRI MET. PANEL blood urea nitrogen 18 mg/dL 6-20 normal Not Available [facility] [address] [place], [address] 12/14/2022 17:10:37 12/15/19 23 12/14/2022 COMPR EHENS BRI MET. PANEL creatinine 0.93 mg/dL 0.70-1 .2 normal Not Available [facility] [address] [place], [address] 12/14/2022 17:10:37 12/15/19 23 12/14/2022 COMPR EHENS BRI MET. PANEL estimated glomerular filt rate 96 GFR Value : mL/mi n/1.7 3 squar e meter s Calcu latio n: CKD-E PI Creat inine Equat ion (2020 ) Chron ic Kidne y Disea se is defin ed as eithe r of the follo wing prese nt for >= 3 month s: - GFR less than 60 mL/mi n/1.7 3 squar e meter s. - Micro album in:Ur . Creat inine Ratio >= 30 mg/g or other marke rs of wilian bean e Kidne y failu re is less than 15 mL/mi n/1.7 3 squar e meter s This test is not perfo rmed in patie nts under the age of 18. Not Available [facility] [address] [place], [address] 12/14/2022 17:10:37 12/15/19 23 12/14/2022 COMPR EHENS BRI MET. PANEL glucose 93 mg/dL 70-106 normal Not Available [facility] [address] [place], [address] 12/14/2022 17:10:37 12/15/19 23 12/14/2022 COMPR EHENS BRI MET. PANEL calcium 10.1 mg/dL 8.6-10 .3 normal Not Available [facility] [address] [place] [address], [address] 12/14/2022 17:10:37 12/15/19 23 12/14/2022 COMPR EHENS BRI MET. PANEL bilirubin total 0.5 mg/dL 0.2-1. 2 normal Not Available [facility] [address] [place] [address], [address] 12/14/2022 17:10:37 12/15/19 23 12/14/2022 COMPR EHENS BRI MET. PANEL aspartate amino transferase 20 U/L 5-40 normal Not Available [facility] [address] [place], [address] 12/14/2022 17:10:37 12/15/19 23 12/14/2022 COMPR EHENS BRI MET. PANEL alanine aminotransfe rase 26 U/L 5-41 normal Not Available [facility] [address] [place], [address] 12/14/2022 17:10:37 12/15/19 23 12/14/2022 COMPR EHENS BRI MET. PANEL total protein 7.1 g/dL 6.4-8. 3 normal Not Available [facility] [address] [place] [address], [address] 12/14/2022 17:10:37 12/15/19 23 12/14/2022 COMPR EHENS BRI MET. PANEL albumin level 4.4 g/dL 3.5-5. 2 normal Not Available [facility] [address] [place] [address], [address] 12/14/2022 17:10:37 12/15/19 23 12/14/2022 COMPR EHENS BRI MET. PANEL globulin 2.7 gm/dL 2.0-3. 5 normal Not Available [facility] [address] [place] [address], [address] 12/14/2022 17:10:37 12/15/19 23 12/14/2022 COMPR EHENS BRI MET. PANEL albumin globulin ratio 1.6 % 1.1-2. 5 normal Not Available [facility] [address] [place], [address] 12/14/2022 17:10:37 12/15/19 23 12/14/2022 COMPR EHENS BRI MET. PANEL alkaline phosphatase 72 U/L 40-129 normal Not Available [facility] [address] [place], [address] 12/14/2022 17:10:37 12/15/19 23 12/14/2022 HEPAT IC PANEL bilirubin direct < 0.20 mg/dL 0.0-0. 3 normal Not Available [facility] [address] [place] [address], [address] 12/14/2022 17:10:39 12/15/19 23 12/14/2022 LIPID PANEL WITH REFLE X triglyceride s w/ reflex LDL 84 mg/dL 30-150 normal Refer ence Range s: <150 mg/dl Jessica l 150-1 99 mg/dl Borde rline High 200-4 99 mg/dl High >500 mg/dl Very High Not Available [facility] [address] [place], [address] 12/14/2022 17:10:39 12/15/1912/14/2022 LIPID PANEL WITH REFLE X cholesterol 221 mg/dL 100-20 0 high Not Available [facility] [address] [place], [address] 12/14/2022 17:10:39 12/15/19 23 12/14/2022 LIPID PANEL WITH REFLE X LDL cholesterol calculated 149.0 mg/dL 0-100 high Natio nal Afsaneh stero l Educa tion Progr am sugge sts the follo wing refer ence range : Optim al <100 mg/dL Near optim al/ab ove optim al 100-1 29 mg/dL Borde rline high 130-1 59 mg/dL High 160-1 89 mg/dL Very high >190 mg/dL Not Available [facility] [address] [place], [address] 12/14/2022 17:10:39 12/15/19 23 12/14/2022 LIPID PANEL WITH REFLE X HDL cholesterol 55.2 mg/dL 40-60 normal Major risk facto r for CHD: <40 mg/dL Negat bri risk facto r for CHD: >=60 mg/dL Not Available [facility] [address] [place] [address], [address] 12/14/2022 17:10:39 12/15/19 23 12/14/2022 LIPID PANEL WITH REFLE X chol HDL ratio 4.00 Risk CHOL/ HDL CHOL/ HDL Ratio Male Femal e 1/2 AVERA GE 3.43 3.27 AVERA GE 4.97 4.44 2 X AVERA GE 9.55 7.05 3 X AVERA GE 23.39 11.04 Not Available [facility] [address] [place] [address], [address] 12/14/2022 17:10:39 12/15/19 23 12/14/2022 TSH REFLE X FREE T4 TSH reflex free T4 1.24 uIU/m L 0.27-4 .20 normal Not Available [facility] [address] [place] [address], [address] 12/14/2022 17:10:40 12/15/1912/14/2022 PROST ATE SPECI FIC ANTIG EN prostate specific antigen 4.11 NG/mL 0.0-4. 0 high Not Available [facility] [address] [place] [address], [address] 12/14/2022 17:17:28 12/15/19 23 12/14/2022 SHONDA TIN ferritin 317.6 NG/mL 30-400 normal Not Available [facility] [address] [place] [address], [address] 12/14/2022 17:19:14 12/15/1912/14/2022 HEPAT ITIS B CORE ANTIB DIANN hepatitis B core antibody REACTI VE nonrea ctive abnormal React bri Presu mptiv e evide nce of antib diann to HBcor e. Not Available [facility] [address] [place] [address], [address] 12/14/2022 19:54:18 12/15/19 23 12/14/2022 HEPAT ITIS C ANTIB DIANN hepatitis C virus antibody NONREA CTIVE nonrea ctive Non React bri Antib odies to Hepat itis C virus not detec omid: does not exclu de early acute infec tion. Not Available [facility] [address] [place] [address], [address] 12/14/2022 19:54:19 12/15/19 23 12/15/2022 ALPHA 1 ANTI TRYPS IN alpha 1 anti trypsin 119 mg/dL 101-18 7 Perfo rmed at: 01 - [facility] [address], [place], [place] [id number] Lab Direc tor: Elba Bowling MD, Phone : [phone] Not Available [facility] [address] [place] [address], [address] 12/15/2022 08:13:41 12/15/19 23 12/19/2022 HBSAG SCREE N HBsAg scr CONFIR M. INDICA OMID negati ve Not Available [facility] [address] [place] [address], [address] 12/19/2022 07:04:52 12/15/19 23 12/19/2022 HBSAG SCREE N HBsAg confirmation POSITI VE . abnormal Resul t confi rmed by isaias victor. Perfo rmed at: 01 - [facility] [address], [place] [id number] Lab Direc tor: Elba Bowling MD, Phone : [phone] Not Available [facility] [address] [place] [address], [address] 12/19/2022 07:04:52 03/25/20 24 03/25/2024 COMPL ETE BLOOD COUNT AUTO DIFF white blood count 4.39 K/uL 3.5-11 .0 normal Not Available [facility] [address] [place] [address], [address] 03/25/2024 17:18:58 03/25/20 24 03/25/2024 COMPL ETE BLOOD COUNT AUTO DIFF red blood count 5.51 M/uL 3.90-5 .50 high Not Available [facility] [address] [place] [address], [address] 03/25/2024 17:18:58 03/25/20 24 03/25/2024 COMPL ETE BLOOD COUNT AUTO DIFF hemoglobin 16.1 g/dL 14.0-1 8.0 normal Not Available [facility] [address] [place] [address], [address] 03/25/2024 17:18:58 03/25/2003/25/2024 COMPL ETE BLOOD COUNT AUTO DIFF hematocrit 49.6 % 42.0-5 4.0 normal Not Available [facility] [address] [place] [address], [address] 03/25/2024 17:18:58 03/25/2003/25/2024 COMPL ETE BLOOD COUNT AUTO DIFF mean corpuscular volume 90.0 fL 80.0-1 00.0 normal Not Available [facility] [address] [place] [address], [address]35[address] 03/25/2024 17:18:58 03/25/2003/25/2024 COMPL ETE BLOOD COUNT AUTO DIFF mean corpuscular hemoglobin 29.2 pg 25.4-3 4.6 normal Not Available [facility] [address] [place] [address], [address] 03/25/2024 17:18:58 03/25/20 24 03/25/2024 COMPL ETE BLOOD COUNT AUTO DIFF mean corpuscular HGB conc 32.5 g/dL 31.0-3 7.0 normal Not Available [facility] [address] [place] [address], [address] 03/25/2024 17:18:58 03/25/2003/25/2024 COMPL ETE BLOOD COUNT AUTO DIFF red cell distribution width 12.7 % 11.5-1 4.5 normal Not Available [facility] [address] [place] [address], [address] 03/25/2024 17:18:58 03/25/2003/25/2024 COMPL ETE BLOOD COUNT AUTO DIFF platelet count 240 K/uL 150-40 0 normal Not Available [facility] [address] [place] [address], [address] 03/25/2024 17:18:58 03/25/2003/25/2024 COMPL ETE BLOOD COUNT AUTO DIFF neutrophils percent auto 52.0 % 35.0-6 6.0 normal Not Available [facility] [address] [place] [address], 287[address] 03/25/2024 17:18:58 03/25/2022 0303/25/2024 COMPL ETE BLOOD COUNT AUTO DIFF imm gran pct auto 0.2 % 0.0-0. 6 normal Not Available [facility] [address] [place] [address], 27[address] 03/25/2024 17:18:58 03/25/20 24 03/25/2024 COMPL ETE BLOOD COUNT AUTO DIFF lymphocytes percent auto 37.8 % 25.0-4 5.0 normal Not Available [facility] [address] [place] [address], 20[address] 03/25/2024 17:18:58 03/25/20 24 03/25/2024 COMPL ETE BLOOD COUNT AUTO DIFF monocytes percent auto 7.7 % 0.0-13 .0 normal Not Available [facility] [address] [place] [address], [address] 03/25/2024 17:18:58 03/25/20 24 03/25/2024 COMPL ETE BLOOD COUNT AUTO DIFF eosinophils percent auto 0.7 % 0.0-8. 0 normal Not Available [facility] [address] [place] [address], 9[address] 03/25/2024 17:18:58 03/25/20 24 03/25/2024 COMPL ETE BLOOD COUNT AUTO DIFF basophils percent auto 1.6 % 0.0-1. 0 high Not Available [facility] [address] [place] [address], 155[address] 03/25/2024 17:18:58 03/25/20 24 03/25/2024 COMPL ETE BLOOD COUNT AUTO DIFF NRBC pct auto 0.0 /100_ WBC 0.0 normal Not Available [facility] [address] [place] [address], 7[address] 03/25/2024 17:18:58 03/25/20 24 03/25/2024 COMPL ETE BLOOD COUNT AUTO DIFF neutrophils absolute auto 2.28 K/uL 1.5-7. 5 normal Not Available [facility] [address] [place] [address], [address] 03/25/2024 17:18:58 03/25/20 24 03/25/2024 COMPL ETE BLOOD COUNT AUTO DIFF imm gran abs auto 0.01 K/uL 0.00-0 .09 normal Not Available [facility] [address] [place] [address], [address] 03/25/2024 17:18:58 03/25/20 24 03/25/2024 COMPL ETE BLOOD COUNT AUTO DIFF lymphocytes absolute auto 1.66 K/uL 0.8-4. 8 normal Not Available [facility] [address] [place] [address], [address] 03/25/2024 17:18:58 03/25/20 24 03/25/2024 COMPL ETE BLOOD COUNT AUTO DIFF monocytes absolute auto 0.34 K/uL 0.4-1. 3 low Not Available [facility] [address] [place] [address], [address] 03/25/2024 17:18:58 03/25/20 24 03/25/2024 COMPL ETE BLOOD COUNT AUTO DIFF eosinophils absolute auto 0.03 K/uL 0.0-0. 8 normal Not Available [facility] [address] [place] [address], [address] 03/25/2024 17:18:58 03/25/20 24 03/25/2024 COMPL ETE BLOOD COUNT AUTO DIFF basophils absolute auto 0.07 K/uL 0.0-0. 6 normal Not Available [facility] [address] [place] [address], 767[address] 03/25/2024 17:18:58 03/25/20 24 03/25/2024 COMPL ETE BLOOD COUNT AUTO DIFF NRBC abs auto 0.00 K/uL 0.00 normal Not Available [facility] [address] [place] [address], [address] 03/25/2024 17:18:58 03/25/20 24 03/25/2024 MICRO ALBUM IN, RANDO M (W CREAT ) creatinine urine 130.00 mg/dL 39-259 normal Not Available [facility] [address] [place] [address], [address] 03/25/2024 17:23:57 03/25/20 24 03/25/2024 MICRO ALBUM IN, RANDO M (W CREAT ) microalbumin urine < 2.0 mg/dL 0-2.9 normal Not Available [facility] [address] [place] [address], [address] 03/25/2024 17:23:57 03/25/20 24 03/25/2024 MICRO ALBUM IN, LOUISE M (W CREAT ) microalbum/c reatinine ratio ur TNP ug/mg cre 0-29 Not Available [facility] [address] [place], [address] 03/25/2024 17:23:57 03/25/20 24 03/25/2024 HEPAT ITIS C ANTIB DIANN hepatitis C virus antibody NONREA CTIVE nonrea ctive Nonre activ e/Ant ibodi es to HCV not detec omid; does not exclu de early acute HCV infec tion Non React bri Antib odies to Hepat itis C virus not detec omid: does not exclu de early acute infec tion. Not Available [facility] [address] [place] [address], [address] 03/25/2024 17:59:29 03/25/2003/25/2024 HEMOG LOBIN A1C hemoglobin A1C % 5.5 % 4.0-5. 7 normal % of the total HgB Inter preta tion ----- ----- ----- --- ----- ----- ----- - <5.7 Consi stent with the absen ce of diabe mendoza 5.7-6 .4 Consi stent with incre ased risk for diabe mendoza (pred iabet es) > or = to 6.5 Consi stent with Diabe mendoza Not Available [facility] [address] [place], [address] 03/25/2024 18:15:44 03/25/20 24 03/25/2024 COMPR EHENS BRI MET. PANEL sodium 139 mmol/ L 136-14 5 normal Not Available [facility] [address] [place], [address] 03/25/2024 18:19:18 03/25/20 24 03/25/2024 COMPR EHENS BRI MET. PANEL potassium 4.40 mmol/ L 3.5-5. 1 normal Not Available [facility] [address] [place], [address] 03/25/2024 18:19:18 03/25/20 24 03/25/2024 COMPR EHENS BRI MET. PANEL chloride 103 mmol/ L 98-107 normal Not Available [facility] [address] [place], [address] 03/25/2024 18:19:18 03/25/20 24 03/25/2024 COMPR EHENS BRI MET. PANEL carbon dioxide 27 mmol/ L 22-29 normal Not Available [facility] [address] [place], [address] 03/25/2024 18:19:18 03/25/20 24 03/25/2024 COMPR EHENS BRI MET. PANEL anion gap 13 mmol/ L 10-20 normal Not Available [facility] [address] [place], [address] 03/25/2024 18:19:18 03/25/20 24 03/25/2024 COMPR EHENS BRI MET. PANEL blood urea nitrogen 19 mg/dL 6-20 normal Not Available [facility] [address] [place], [address] 03/25/2024 18:19:18 03/25/20 24 03/25/2024 COMPR EHENS BRI MET. PANEL creatinine 0.95 mg/dL 0.67-1 .17 normal Not Available [facility] [address] [place], [address] 03/25/2024 18:19:18 03/25/20 24 03/25/2024 COMPR EHENS BRI MET. PANEL estimated glomerular filt rate 94 GFR Value : mL/mi n/1.7 3 squar e meter s Calcu latio n: CKD-E PI Creat inine Equat ion (2020 ) Chron ic Kidne y Disea se is defin ed as eithe r of the follo wing prese nt for >= 3 month s: - GFR less than 60 mL/mi n/1.7 3 squar e meter s. - Micro album in:Ur . Creat inine Ratio >= 30 mg/g or other marke rs of wilian bean e Kidne y failu re is less than 15 mL/mi n/1.7 3 squar e meter s This test is not perfo rmed in patie nts under the age of 18. Not Available [facility] [address] [place], [address] 03/25/2024 18:19:18 03/25/20 24 03/25/2024 COMPR EHENS BRI MET. PANEL glucose 92 mg/dL 70-106 normal Not Available [facility] [address] [place], [address] 03/25/2024 18:19:18 03/25/20 24 03/25/2024 COMPR EHENS BRI MET. PANEL calcium 10.3 mg/dL 8.6-10 .3 normal Not Available [facility] [address] [place] [address], [address] 03/25/2024 18:19:18 03/25/20 24 03/25/2024 COMPR EHENS BRI MET. PANEL bilirubin total 0.5 mg/dL 0.2-1. 2 normal Not Available [facility] [address] [place], [address] 03/25/2024 18:19:18 03/25/20 24 03/25/2024 COMPR EHENS BRI MET. PANEL aspartate amino transferase 20 U/L 5-40 normal Not Available [facility] [address] [place] [address], [address] 03/25/2024 18:19:18 03/25/20 24 03/25/2024 COMPR EHENS BRI MET. PANEL alanine aminotransfe rase 24 U/L 5-41 normal Not Available [facility] [address] [place], [address] 03/25/2024 18:19:18 03/25/20 24 03/25/2024 COMPR EHENS BRI MET. PANEL total protein 7.6 g/dL 6.4-8. 3 normal Not Available [facility] [address] [place], [address] 03/25/2024 18:19:18 03/25/20 24 03/25/2024 COMPR EHENS BRI MET. PANEL albumin level 4.5 g/dL 3.5-5. 2 normal Not Available [facility] [address] [place] [address], [address] 03/25/2024 18:19:18 03/25/20 24 03/25/2024 COMPR EHENS BRI MET. PANEL globulin 3.1 gm/dL 2.0-3. 5 normal Not Available [facility] [address] [place] [address], [address] 03/25/2024 18:19:18 03/25/20 24 03/25/2024 COMPR EHENS BRI MET. PANEL albumin globulin ratio 1.4 % 1.1-2. 5 normal Not Available [facility] [address] [place], [address] 03/25/2024 18:19:18 03/25/20 24 03/25/2024 COMPR EHENS BRI MET. PANEL alkaline phosphatase 77 U/L 40-129 normal Not Available [facility] [address] [place], [address] 03/25/2024 18:19:18 03/25/20 24 03/25/2024 LIPID PANEL WITH REFLE X triglyceride s 97 mg/dL 30-150 normal Refer ence Range s: <150 mg/dl Jessica l 150-1 99 mg/dl Borde rline High 200-4 99 mg/dl High >500 mg/dl Very High Not Available [facility] [address] [place], [address] 03/25/2024 18:19:19 03/25/20 24 03/25/2024 LIPID PANEL WITH REFLE X cholesterol 243 mg/dL 100-20 0 high Not Available [facility] [address] [place], [address] 03/25/2024 18:19:19 03/25/20 24 03/25/2024 LIPID PANEL WITH REFLE X LDL cholesterol direct TNP mg/dL 0-100 Not Available [facility] [address] [place], [address] 03/25/2024 18:19:19 03/25/2003/25/2024 LIPID PANEL WITH REFLE X LDL cholesterol calculated 164.0 mg/dL 0-100 high Natio nal Afsaneh stero l Educa tion Progr am sugge sts the follo wing refer ence range : Optim al <100 mg/dL Near optim al/ab ove optim al 100-1 29 mg/dL Borde rline high 130-1 59 mg/dL High 160-1 89 mg/dL Very high >190 mg/dL Not Available [facility] [address] [place], [address] 03/25/2024 18:19:19 08/27/03/25/2024 LIPID PANEL WITH REFLE X HDL cholesterol 59.3 mg/dL 40-60 normal Major risk facto r for CHD: <40 mg/dL Negat bri risk facto r for CHD: >=60 mg/dL Not Available [facility] [address] [place] [address], [address] 03/25/2024 18:19:19 03/25/20 24 03/25/2024 LIPID PANEL WITH REFLE X chol HDL ratio 4.10 Risk CHOL/ HDL CHOL/ HDL Ratio Male Femal e 1/2 AVERA GE 3.43 3.27 AVERA GE 4.97 4.44 2 X AVERA GE 9.55 7.05 3 X AVERA GE 23.39 11.04 Not Available [facility] [address] [place] [address], [address] 03/25/2024 18:19:19 03/25/2003/25/2024 TSH REFLE X FREE T4 free T4 (free thyroxine) TNP NG/dL 0.9-1. 7 Not Available [facility] [address] [place] [address], [address] 03/25/2024 18:19:19 03/25/20 24 03/25/2024 TSH REFLE X FREE T4 TSH reflex free T4 1.31 uIU/m L 0.27-4 .20 normal Not Available [facility] [address] [place] [address], [address] 03/25/2024 18:19:19 03/25/2003/27/2024 HBV REAL- TIME PCR, QUANT HBV IU/mL 03618 IU/mL . Not Available [facility] [address] [place] [address], [address] 03/27/2024 16:11:20 03/25/20 24 03/27/2024 HBV REAL- TIME PCR, QUANT log10 HBV IU/mL 4.000 . Resul t Units : log10 IU/mL Not Available [facility] [address] [place] [address], [address] 03/27/2024 16:11:20 03/25/2003/27/2024 HBV REAL- TIME PCR, QUANT HBV test information: COMMEN T . The repor table range for this assay is 10 IU/mL to 1 azalea on IU/mL . Perfo rmed at: 01 - [facility] [place] [address] [facility] , [place] [address] 3361 Lab Direc tor: Ning saab MD, Phone : [phone] Not Available [facility] [address] [place] [address], [address] 03/27/2024 16:11:20 12/15/19 23 12/14/2022 MR abdom en (C-/C +) CPT 20394 [facility] Access ion Number : [id number] Patien t Name: Cely Romero Record Number : [id number] Date of : 1964 Date of Exam: 2022 Referr ing Physic joyce: Gabriella Chadwick [facility] [address] [place] [address] Exam: MR Abdome n (C-/C+ ) CPT 70289 Room Descri ption: [facility] Siem Altea 1.5 [facility] [address] [place] [address] Magnet ic Resona nce Report Signed Patien t: Viki Romero MR#: [id number] 77 05 : 1964 Acct:H [id number] Age/Se x: 57 / M ADM Date: Loc: HE.MRI Attend ing Dr: Gabriella Chadwick RN Evani Physic joyce: Gabriella Chadwick NP Date of Servic e: Proced ure(s) : MR abdome n wo/w con Access ion Number (s): [id number] H cc: Raffi Hurtado EXAM: MR abdome n wo/w con CLINIC AL INDICA TION: Border line dilati on of common TECHNI QUE: Abdomi nal MRI perfor med before and after intrav enous admini strati on of 15 mL of Dotare m gadoli nium contra st using depart mental protoc ol. PULSE SEQUEN NICO: Hanson l T2; axial T1 in and out of phase, T2, T2 fat satura tion, diffus ion weight ed; precon trast axial and hanson l T1 VIBE; post contra st hanson l T1 VIBE immedi ate, 90 second s, 3 minute post-i njecti on axial images and axial T1 FS VIBE post inject ion images . Subtra ction images . 3-D MRCP. COMPAR SUMEET: 022 FINDIN GS: Study somewh at limite d by patien t motion artifa ct. Multip le (great er than 15) circum scribe d T2 hyperi ntense nonenh ancing lesion s scatte red throug hout the liver, larges t measur ing up to 3.7 cm, most consis tent with benign hepati c cysts. No hepati c steato sis. 3-D MRCP sequen nico show no intrah epatic biliar y ductal dilata tion. Common bile duct mildly dilate d to 9 mm with smooth distal taperi ng. No lumina l fillin g defect or choled ocholi thiasi s. Main pancre atic duct normal calibe r. Gallbl adder normal . No cholel ithias is. Pancre as appear s normal . Spleen appear s normal . Adrena l glands appear normal . 3 cm simple appear ing renal cyst interp olar region right kidney . No hydron ephros is. Stomac h is decomp ressed , limiti ng evalua tion. No small bowel obstru ction. Visual ized portio ns of colon appear normal . No ascite s. No abdomi nal aortic aneury sm. Celiac axis, SMA, renal artery origin s and SIERRA patent . Portal vein patent . No ascite s. No pleura l effusi on. Marrow signal normal . Minima l rightw danae curvat ure of lumbar spine with multil evel narrow ing of centra l canal. Electr onical ly Signed in Smiley cribe By DONOVAN Orourke MD, MD 012 MR/MR abdome n wo/w con IMPRES TANVI: 1. Multip le circum scribe d T2 hyperi ntense lesion s withou t enhanc ement scatte red throug hout liver measur ing 3.7 cm slight ly increa sed from 3.1 cm in 2020, but withou t signif icant change in number compar ed to 2020, most consis tent with benign hepati c cysts. 2. Dilate d common bile duct measur ing 9 mm, chroni c turnerin g, withou t choled ocholi thiasi s. Dictat ed By: Donovan orourke Signed By: [id number] DD/DT: 1245 TD/TT: 1330 Transc riptio nist: Electr onical ly Signed By: Donovan orourke MD [email or web address] [facility] [address] , [place], [address], 12/15/2022 11:16:43 02/27/20 23 02/26/2023 MRI, lumba r spine , w/o contr ast No observ ation record ed. [facility] [address], [place], [address], 02/26/2023 16:40:00 03/26/20 elect rocar diogr am No observ ation record ed. [email or web address] Not Available 2023 07:20:49 03/26/20 24 03/26/2024 elect rocar diogr am No observ ation record ed. katia [facility] [address] , [place], [address], 03/26/2024 12:40:50 03/28/20 24 03/26/2024 MRI, abdom en, w/wo contr ast No observ ation record ed. [facility] [address], [place], [address], 04/28/2024 21:13:54 07/15/20 24 heari ng evalu ation * No observ ation record ed. [facility] Not Available 2024 08:51:52 07/22/20 24 07/18/2024 , driss um No observ ation record ed. katia [facility] [address], [place], [address], 07/25/2024 13:40:04 09/23/19 25 09/16/2024 CT, abdom en + pelvi s, w/o contr ast No observ ation record ed. [facility] [address], [place], [address], 09/24/2024 15:56:10 Result Notes None recorded. Problems Name Problem SNOMED Code Status Onset Date Resolution Date Notes Provider Name and Address Organization Details Recorded Time Epigastr ic pain 77617516 Completed 11/22/2022 GABRIELLA CHADWICK NP [address] [place], [address] , [facility] 3 16:42:06 Galeana' s esophagu s 184968909 Active Seeing GI (Dr. Bob) , see 11/01/22 note. Recommen ded upper endo/col on cancer screenin g and PPI. GABRIELLA CHADWICK NP [address] [place], [place] [address], [address] , [facility] 3 16:43:25 Chronic type B viral hepatiti s 53938147 Active Not Available [facility] 0 23:51:46 Pneumoni a 818504594 Completed 11/22/2022 GABRIELLA CHADWICK NP [address] [place], [place] [address], [address] , [facility] 3 16:42:27 Complain ing of erectile dysfunct ion Completed 11/22/2022 GABRIELLA CHADWICK NP [address] [place], [place] [address], [address] , [facility] 3 16:42:00 Impotenc e of organic origin Completed 11/22/2022 GABRIELLA CHADWICK NP [address] [place], [place] [address], [address] , [facility] 3 16:42:14 Allergy to mold 698198371 Active Not Available [facility] 0 23:51:46 Low back pain 365481387 Completed 200311/22/2022 GABRIELLA CHADWICK NP [address] [place], [place] [address], [address] , [facility] 3 16:42:18 Acute sinusiti s 81621034 Completed 200308/15/2019 Vianey Warner, MINDA denny, [facility] 0 10:12:17 Allergic rhinitis 53817671 Active 2008 Not Available [facility] 0 23:51:46 Foreign body granulom a of skin 5864673 Completed 201311/22/2022 GABRIELLA CHADWICK NP [address] [place], [address] , [facility] 3 16:42:09 Ptosis of eyelid 80342504 Completed 201311/22/2022 GABRIELLA CHADWICK NP [address] [place] [address], [address] , [facility] 3 16:42:35 Pain of multiple joints 18096667 Completed 201311/22/2022 GABRIELLA CHADWICK NP [address] [place] [address], [address] , [facility] 3 16:42:21 Posterio r rhinorrh ea 25353709 Completed 201311/22/2022 GABRIELLA CHADWICK NP [address] [place] [address], [address] , [facility] 3 16:42:29 Inflamma tory disease of liver 982836433 Active 2013 Not Available [facility] 0 23:51:46 Rotator cuff shoulder syndrome and allied disorder s Completed 201311/22/2022 GABRIELLA CHADWICK NP [address] [place] [address], [address] , [facility] 3 16:42:40 Gastroes ophageal reflux disease 951578979 Active 2013 Seeing GI (Dr. Bob) , see 11/01/22 note. Recommen ded upper endo/col on cancer screenin g and PPI. GABRIELLA CHADWICK NP [address] [facility] [place], [address] , [facility] 3 16:43:33 Disorder of lipid metaboli sm 742144173 Active 2013 Not Available [facility] 0 23:51:46 Eruption 297200597 Completed 201308/15/2019 Vianey WarnerMINDA, [facility] 0 10:12:22 Elevated blood-pr essure reading without diagnosi s of hyperten tanvi 647751730 Completed 201311/22/2022 GABRIELLA CHADWICK NP [address] [place], [address] , [facility] 3 16:42:04 Kidney stone 66986302 Active 2021 MINDA Brasher, [facility] 2 09:54:10 Hydronep hrosis 49100050 Completed 202112/14/2022 GABRIELLA CHADWICK NP [address] [place], [address] , [facility] 3 10:59:11 Benign prostati c hyperpla rosanna 282467926 Active 2021 MINDA Brasher, [facility] 2 09:55:09 Neoplasm of liver 563335124 Active 2021 MINDA Brasher, [facility] 2 10:19:48 Hand wart 863228365 Completed 202111/22/2022 GABRIELLA CHADWICK NP [address] [place], [address] , [facility] 3 16:42:11 Psoriasi s 8699677 Active 2021 MINDA Brasher, [facility] 2 10:23:07 Prostate specific antigen above referenc e range 921027832 Completed 202112/14/2022 GABRIELLA CHADWICK NP [address] [place], [address] , [facility] 3 10:53:27 Left renal vein entrapme nt syndrome 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 [facility] Most recent note 07/02/24: plan to order UA to check for mircrosc opic hematuri a and undergo a scrotal US to asses for varicoce le or enlarged pelvic veins. will f/u after obtainin g imaging. [facility] 13:18:43 Notes:Impotence Problem Notes None recorded. Procedures Surgical History Date Name Laterality Status Provider Name and Address Organization Details Recorded Time 09/04/19 25 Telemedicine Documentation completed CHERYL SENIOR MD [address] [place], [address], [facility] 10/23/2024 07:16:16 02/21/20 23 Telemedicine Documentation completed GABRIELLA CHADWICK NP [address] [place], [address], [facility] 02/20/2023 17:52:14 12/15/19 23 Mini-Mental State Exam (MMSE) completed Faby Ching MA [facility] 12/14/2022 10:16:40 12/15/19 23 Instrumental Activities of Daily Living completed Faby Ching MA [facility] 12/14/2022 10:11:26 12/15/19 23 Activities of Daily Living Scale completed Faby Ching MA [facility] 12/14/2022 10:11:07 12/13/19 23 colonoscopy completed GABRIELLA CHADWICK NP [address] [place], [address], [facility] 08/07/2023 12:12:41 07/12/20 22 Telemedicine Documentation completed Toni Granado PA-C [address] [place], [address], [facility] 07/16/2022 21:42:55 08/29/19 22 PHQ-9 Patient Health Questionnaire completed [facility] 08/29/2021 13:52:08 08/29/19 22 Instrumental Activities of Daily Living completed Raffi Hurtado III, MD [address] [place], [address], [facility] 08/29/2021 14:10:39 08/29/19 22 Activities of Daily Living Scale completed Raffi Hurtado III, MD [address] [place], [place] [address], [address], [facility] 08/29/2021 14:10:26 09/21/19 21 colonoscopy completed Michaela Krueger [facility] 08/27/2021 10:00:03 09/21/19 21 colonoscopy completed Michaela Krueger [facility] 08/27/2021 10:15:40 08/16/19 21 Cryotherapy For Warts completed Raffi Hurtado III, MD [address] [place], [place] [address], [address], [facility] 08/16/2020 08:24:44 08/16/19 21 PHQ-9 Patient Health Questionnaire completed Raffi Hurtado III, MD [address] [place], [place] [address], [address], [facility] 08/16/2020 08:17:13 08/16/19 21 Instrumental Activities of Daily Living completed Raffi Hurtado III, MD [address] [place], [place] [address], [address], [facility] 08/16/2020 08:16:54 08/16/19 21 Activities of Daily Living Scale completed Raffi Hurtado III, MD [address] [place], [place] [address], [address], [facility] 08/16/2020 08:16:39 08/12/19 20 PHQ-9 Patient Health Questionnaire completed Raffi Hurtado III, MD [address] [place], [place] [address], [address], [facility] 08/12/2019 08:30:11 08/12/19 20 Mini-Mental State Exam (MMSE) completed MINDA Collins [facility] 08/12/2019 08:04:50 08/12/19 20 Instrumental Activities of Daily Living completed Raffi Hurtado III, MD [address] [place], [address], [facility] 08/12/2019 08:30:03 08/12/19 20 Activities of Daily Living Scale completed Raffi Hurtado III, MD [address] [place], [address], [facility] 08/12/2019 08:29:49 08/09/19 19 PHQ-9 Patient Health Questionnaire completed Raffi Hurtado III, MD [address] [place], [address], [facility] 08/09/2018 08:26:16 07/30/19 19 colonoscopy and biopsy of colon completed Raffi Hurtado III, MD [address] [place], [address], [facility] 08/12/2019 08:13:15 07/18/20 17 PHQ-9 Patient Health Questionnaire completed Raffi Hurtado III, MD [address] [place], [place] [address], [address], [facility] 07/18/2017 08:23:00 07/17/20 16 PHQ-9 Patient Health Questionnaire completed Martine Zhang MA [facility] 07/17/2016 10:02:57 08/17/19 16 General Biopsy completed Raffi Hurtado III, MD [address] [place], [address], [facility] 08/17/2015 14:47:05 07/16/20 15 PHQ-9 Patient Health Questionnaire completed Raffi Hurtado III, MD [address] [place], [address], [facility] 07/16/2015 08:47:52 07/16/20 15 Mini-Mental State Exam (MMSE) completed Raffi Hurtado III, MD [address] [facility] [place], [address], [facility] 07/16/2015 08:47:52 07/16/20 15 Instrumental Activities of Daily Living completed Raffi Hurtado III, MD [address] [facility] [place], [address], [facility] 07/16/2015 08:47:52 07/16/20 15 Activities of Daily Living Scale completed Raffi Hurtado III, MD [address] [facility] [place], [address], [facility] 07/16/2015 08:47:52 07/15/20 14 PHQ-9 Patient Health Questionnaire completed Vianey Warner [facility] 07/15/2014 09:06:06 07/15/20 14 Mini-Mental State Exam (MMSE) completed Vianey Warner [facility] 07/15/2014 09:07:42 07/15/20 14 Instrumental Activities of Daily Living completed Vianey Warner [facility] 07/15/2014 09:07:42 07/15/20 14 Activities of Daily Living Scale completed Vianey Warner [facility] 07/15/2014 09:07:42 04/29/20 13 endoscopy completed Raffi Hurtado III, MD [address] [place], [address], [facility] 07/15/2014 09:09:14 04/29/20 13 colonoscopy completed Raffi Hurtado III, MD [address] [place] [address] [place], [address], [facility] 07/15/2014 09:09:14 Repair lumbar hernia completed Vianey Warner [facility] 07/15/2014 09:03:22 Imaging Results None recorded. Procedure Notes None recorded. Medical Equipment None Reported. Allergies Allergen ID Allergen Name Allergen Category Reaction Reaction Severity Criticality Documentation Date Start Date Code Code System Note Provider Name and Address Organization Details Recorded Time 443732 Iodinated contrast media (substanc e) medicatio n Not available Not available Not available 03/02/2014 67115 2003 SNOMED Raffi Hurtado III, MD [address] [facility], [place], [address] , [facility] 4 12:36:21 Medications Name Sig Start Date Stop Date Status Note LastModified by Organization Details LastModified Time prednisone tab 20mgprednis one active Not Available Not Available Not Available levofloxaci n tab 750mglevofl oxacin active Not Available Not Available Not Available clobetasol sha 0.05%clobet asol propionate active Not Available Not Available N ot Available prednisone tab 20mg active Not Available Not Available Not Available vigamox angelica 0.5% active Not Available Not Available Not Available clobetasol oin 0.05%clobet asol propionate active Not Available Not Available N ot Available ketoconazol e sha 2%ketoconaz ole active Not Available Not Available Not Available omeprazole 20 mg cpdr active Not Available Not Available N ot Available ventolin hfa 108 (90 base) mcg/actaers active Not Available Not Available Not Available amoxicillin /clavulanat e potassium 875-125 mg tabs active Not Available Not Available Not Available ventolin hfa aerventolin hfa active Not Available Not Available Not Available omeprazole cap 20mgomepraz ole 1 po qd active Not Available Not Available Not Available amoxicillin cap 500mgamoxic illin active Not Available Not Available Not Available clobetasol propionate 0.05 % foam active Not Available Not Available Not Available calcipotrie ne 0.005 % soln active Not Available Not Available Not Available hydroco/apa p tab 5-325mg active Not Available Not Available Not Available amox/k clav tab 875mg active Not Available Not Available No t Available taclonex 0.005-0.064 % susp active Not Available Not Available Not Available amox/k clav tab 875mgamoxic illin/clavu lanate potassium active Not Available Not Available No t Available prednisone 20 mg tabs active Not Available Not Available N ot Available Prescriptio n - Prior Authorizati on Request 03/26 completed Not Available Not Available Not Available omeprazole cap 20mg active Not Available Not Available Not Available ventolin hfa aer active Not Available Not Available Not Available prednisolon e cody 1% op active Not Available Not Available Not Available prometh vc syp plainpromet hazine vc plain active Not Available Not Available Not Available auvi-q 0.3 mg/0.3ml soaj active Not Available Not Available Not Available fluticasone propionate 50 mcg/act susp active Not Available Not Available Not Available Singulair 10 mg tablet active Not Available Not Available Not Available tetracyclin e 500 mg capsule active Not Available Not Available Not Available cyclobenzap rine 10 mg tablet active Not Available Not Available Not Available amoxicillin 500 mg capsule active Not Available Not Available Not Available fluconazole 100 mg tablet 2 TABS ON DAY 1, THEN 1 TAB Q DAY FOR 7 DAYS 10/18 completed Not Available Not Available Not Available desonide 0.05 % topical cream APPLY TOPICALLY TO AFFECTED AREA ON THE FACE TWICE DAILY NEEDED FOR 2 TO 3 WEEKS active Not Available Not Available No t Available prednisone 10 mg tablet Take 4 tablet (40mg) by oral route once daily for three days, then 3 tablets (30mg) once daily for three days, then 2 tablets (20mg) once daily for three days, then 1 tablet (10 mg) once daily for three days. active Not Available Not Available No t Available ketoconazol e 2 % shampoo APPLY TO THE AFFECTED AREA(S), LATHER, LEAVE IN PLACE FOR 5 MINUTES, AND THEN RINSE OFF WITH WATER BY TOPICAL ROUTE ONCE DAILY active Not Available Not Available No t Available cetirizine 10 mg tablet TAKE 1 TABLET BY MOUTH ONCE DAILY active Not Available Not Available No t Available azithromyci n 250 mg tablet TAKE 2 TABLETS (500 MG) BY ORAL ROUTE ONCE DAILY FOR 1 DAY THEN 1 TABLET (250 MG) BY ORAL ROUTE ONCE DAILY FOR 4 DAYS 03/26 completed Not Available Not Available Not Available ibuprofen 800 mg tablet Take 1 tablet 3 times a day by oral route as needed. 12/05 completed Not Available Not Available Not Available tizanidine 4 mg tablet Take 1 tablet every 6 hours by oral route as needed. 08/16 completed Not Available Not Available Not Available benzonatate 200 mg capsule 1 capsule q 8 hrs as needed 2014 active Not Available Not Available Not Avai lable clarithromy tom 500 mg tablet active Not Available Not Available Not Available Avelox 400 mg tablet 08/09 completed Not Available Not Available Not Available phenazopyri dine 200 mg tablet TAKE 1 TABLET BY MOUTH THREE TIMES DAILY NEEDED FOR PAIN FOR UP TO 3 DAYS active Not Available Not Available No t Available prednisone 20 mg tablet TAKE 3 TABLETS BY MOUTH EVERY DAY FOR 4 DAYS THEN TAKE 2TABS DAILY X4 DAYS THEN TAKE 1TAB DAILY X4 DAYS 11/22 completed Not Available Not Available Not Available metronidazo le 250 mg tablet active Not Available Not Available Not Available promethazin e 6.25 mg-codeine 10 mg/5 mL syrup active Not Available Not Available Not Available penicillin V potassium 500 mg tablet 07/17 completed Not Available Not Available Not Available hydroxyzine HCl 50 mg tablet 1 tab q 8 hrs prn itch 08/12 completed Not Available Not Available Not Available ciprofloxac in 500 mg tablet TAKE 1 TABLET BY MOUTH EVERY DAY 12/05 completed Not Available Not Available Not Available sulfamethox azole 800 mg-trimetho prim 160 mg tablet TAKE 1 TABLET BY MOUTH TWICE DAILY FOR 7 DAYS active Not Available Not Available No t Available omeprazole 40 mg capsule,del ayed release active Not Available Not Available Not Available acetaminoph en 500 mg tablet Take 2 tablets every 6 hours by oral route. 08/29 completed Not Available Not Available Not Available sildenafil 100 mg tablet 1 tablet q day as needed 08/29 completed Not Available Not Available Not Available oxycodone-a cetaminophe n 5 mg-325 mg tablet 07/17 completed Not Available Not Available Not Available citalopram 20 mg tablet active Not Available Not Available Not Available methocarbam ol 750 mg tablet TAKE 1-2 TABLETS BY MOUTH EVERY 8 HOURS NEEDED FOR PAIN 08/16 completed Not Available Not Available Not Available tamsulosin 0.4 mg capsule TAKE 1 CAPSULE BY MOUTH DAILY active Not Available Not Available No t Available phenazopyri dine 100 mg tablet TAKE 1 TABLET BY MOUTH EVERY 8 HOURS NEEDED FOR URINARY DISCOMFOR T 08/25 completed Not Available Not Available Not Available desloratadi ne 5 mg tablet TAKE 1 TABLET BY MOUTH EVERY DAY active Not Available Not Available No t Available oseltamivir 75 mg capsule Take 1 capsule twice a day by oral route as directed. active Not Available Not Available No t Available Promethazin e VC 6.25 mg-5 mg/5 mL oral syrup Take 5 mL every 6 hours by oral route as needed. active Not Available Not Available No t Available prednisone 50 mg tablet Take 1 tablet every day by oral route for 5 days. 12/05 completed Not Available Not Available Not Available clobetasol 0.05 % topical foam APPLY TOPICALLY TO THE AFFECTED AREA EVERY DAY NEEDED active Not Available Not Available No t Available docusate sodium 100 mg capsule 08/25 completed Not Available Not Available Not Available sertraline 25 mg tablet TAKE 1 TABLET BY MOUTH EVERY DAY active Not Available Not Available No t Available Lamisil 1 % topical cream APPLY BD 2011 active Not Available Not Available Not Avai lable omeprazole 20 mg capsule,del ayed release TAKE ONE CAPSULE BY MOUTH TWICE DAILY active Not Available Not Available No t Available desonide 0.05 % lotion active Not Available Not Available Not Available zolpidem 5 mg tablet TAKE 1 TABLET BY MOUTH DAILY FOR 10 DAYS. MAY REPEAT 1 TIME IF NO RESPONSE IN 30-60 MINUTES 08/29 completed Not Available Not Available Not Available clobetasol 0.05 % topical ointment APPLY TO LEG LESION AT BEDTIME AND OCCLUDE NEEDED 03/19 completed Not Available Not Available Not Available ibuprofen 600 mg tablet TAKE 1 TABLET BY MOUTH THREE TIMES DAILY NEEDED active Not Available Not Available No t Available calcipotrie ne 0.005 % scalp solution APPLY TOPICALLY TO THE AFFECTED AREA EVERY DAY NEEDED 03/19 completed Not Available Not Available Not Available cefuroxime axetil 500 mg tablet active Not Available Not Available No t Available levofloxaci n 750 mg tablet Take 1 tablet every day by oral route with meals for 10 days. 03/26 completed Not Available Not Available Not Available Nasal Decongestan t (pseudoephe drine) 30 mg tablet take 1-2 tablets by mouth every TID if needed 08/12 completed Not Available Not Available Not Available ipratropium bromide 42 mcg (0.06 %) nasal spray active Not Available Not Available Not Available fluocinonid e 0.05 % topical cream Apply a thin layer to affected are 2-4x daily as needed for rash. 2022 active Not Available Not Available Not Avai lable ondansetron 4 mg disintegrat ing tablet 08/25 completed Not Available Not Available Not Available fluticasone propionate 50 mcg/actuati on nasal spray,suspe nsion SHAKE LIQUID AND USE 2 SPRAYS IN EACH NOSTRIL EVERY DAY active Not Available Not Available No t Available doxycycline hyclate 100 mg tablet Take 1 tablet twice a day by oral route with meals for 10 days. active Not Available Not Available No t Available finasteride 5 mg tablet Take 1 tablet every day by oral route. 08/16 completed Not Available Not Available Not Available loratadine 10 mg tablet TAKE 1 TABLET BY MOUTH EVERY DAY 2024 active Not Available Not Available Not Avai lable amoxicillin 875 mg-potassiu m clavulanate 125 mg tablet TAKE 1 TABLET BY MOUTH EVERY MORNING AND EVERY EVENING FOR 3 DAYS 09/04 completed Not Available Not Available Not Available Ventolin HFA 90 mcg/actuati on aerosol inhaler 2 PUFFS Q 4 HRS NEEDED 07/18 completed Not Available Not Available Not Available tobramycin 0.3 %-dexametha sone 0.1 % eye drops,suspe nsion active Not Available Not Available Not Available oxycodone 5 mg tablet TAKE 1 TABLET BY MOUTH EVERY 6 TO 8 HOURS NEEDED FOR SEVERE POST OPERATIVE PAIN active Not Available Not Available No t Available escitalopra m 10 mg tablet TAKE 1 TABLET BY MOUTH EVERY DAY NEEDED FOR ANXIETY 12/29 completed Not Available Not Available Not Available guaifenesin 400 mg tablet Take 1 tablet every 4 hours by oral route as needed for 30 days. 03/26 completed Not Available Not Available Not Available Alavert 10 mg disintegrat ing tablet Take 1 tablet every day by oral route. 03/26 completed Not Available Not Available Not Available rosuvastati n 5 mg tablet TAKE 1 TABLET BY MOUTH EVERY DAY DIRECTED FOR HIGH CHOLESTER OL active Not Available Not Available No t Available rosuvastati n 10 mg tablet Take 1 tablet every day by oral route in the evening, for high cholester ol. 07/25 completed Not Available Not Available Not Available alfuzosin ER 10 mg tablet,exte nded release 24 hr TK 1 T PO QHS 08/16 completed Not Available Not Available Not Available tadalafil 5 mg tablet TAKE 1 TABLET BY MOUTH EVERY DAY DIRECTED FOR BPH active Not Available Not Available No t Available Cialis 20 mg tablet TAKE 1 TABLET BY MOUTH ONCE DAILY IF NEEDED 08/09 completed Not Available Not Available Not Available clobetasol 0.05 % shampoo APPLY A THIN LAYER BY TOPICAL ROUTE QD TO DRY SCALP LEAVE IN FOR 15 MINUTES THEN LATHER AND RINSE active Not Available Not Available No t Available trospium 20 mg tablet Take 1 tablet twice a day by oral route. active Not Available Not Available No t Available sildenafil (pulmonary hypertensio n) 20 mg tablet TAKE 1 TABLET BY MOUTH DAILY NEEDED 07/18 completed Not Available Not Available Not Available chlorhexidi ne gluconate 0.12 % mouthwash 08/16 completed Not Available Not Available Not Available OsmoPrep 1.5 gram (1.102-0.39 8) tablet active Not Available Not Available No t Available omeprazole 20 mg tablet,mari yed release Take 1 tablet twice a day by oral route. 2013 active Not Available Not Available Not Avai lable Claritin Liqui-Gel 10 mg capsule TAKE 1 CAPSULE BY MOUTH EVERY DAY DIRECTED 2024 active Not Available Not Available Not Avai lable Myrbetriq 50 mg tablet,exte nded release TAKE 1 TABLET BY MOUTH DAILY active Not Available Not Available No t Available EpiPen 2-Tino 0.3 mg/0.3 mL injection, auto-inject or 12/14 completed Not Available Not Available Not Available Taclonex 0.005 %-0.064 % topical suspension active Not Available Not Available N ot Available Otezla 30 mg tablet TAKE ONE TABLET BY MOUTH TWICE DAILY. active Not Available Not Available No t Available guaifenesin ER 600 mg tablet, extended release 12 hr Take 1 tablet every 12 hours by oral route. 03/26 completed Not Available Not Available Not Available Otezla Starter 10 mg (4)-20 mg (4)-30 mg(47) tablets in a dose pack 03/25 completed Not Available Not Available Not Available Shingrix (PF) 50 mcg/0.5 mL intramuscul ar suspension, kit ADM 0.5ML IM UTD 08/16 completed Not Available Not Available Not Available COVID-19 test specimen collection TEST DIRECTED TODAY 11/22 completed Not Available Not Available Not Available Sutab 1.479-0.188 -0.225 gram tablet TAKE DIRECTED IN PREPERATI ON FOR COLONOSCO PY 12/05 completed Not Available Not Available Not Available BinaxNOW COVID-19 Ag Self Test kit TEST DIRECTED TODAY 11/22 completed Not Available Not Available Not Available Paxlovid 300 mg (150 mg x 2)-100 mg tablets in a dose pack TAKE 2 NIRMATREL VIR TABLETS AND 1 RITONAVIR TABLET TOGETHER BY MOUTH TWICE DAILY FOR 5 DAYS 12/05 completed Not Available Not Available Not Available Vitals Date Recorded Body height Body mass index (BMI) Body weight Heart rate Oxygen saturation Oxygen saturation in Arterial blood by Pulse oximetry Systolic And Diastolic Provider Name and Address Organization Details Last Updated DateTime 4 172.72 cm 24.3 kg/m2 41815.7 8 g 80 /min 98 % 98 % 126/78 mm[Hg] Faby Ching MA [facility] 4 14:07:43 Date Recorded Body weight Body mass index (BMI) Body height Heart rate Oxygen saturation Oxygen saturation in Arterial blood by Pulse oximetry Systolic And Diastolic Provider Name and Address Organization Details Last Updated DateTime 3 13411.4 8 g 24.3 kg/m2 172.72 cm 82 /min 96 % 96 % 124/78 mm[Hg] Faby Ching MA [facility] 3 10:08:28 Date Recorded Body height Body mass index (BMI) Body weight Heart rate Oxygen saturation Oxygen saturation in Arterial blood by Pulse oximetry Systolic And Diastolic Provider Name and Address Organization Details Last Updated DateTime 4 172.72 cm 24.3 kg/m2 54339.7 8 g 75 /min 99 % 99 % 136/82 mm[Hg] Faby Ching MA [facility] 4 10:26:28 Social History Question Answer Notes LastModified by Organizat ion Details LastModified Time Tobacco Smoking Status Never Smoker MINDA Garcia, [facility] 07/10/2014 11:20:18 What Is Your Level Of Caffeine Consumption? Occasional Occas 1 Coffee Daily Information not available 07/15/2014 How Much Tobacco Do You Chew? None Information not available 07/15/2014 What Type Of Diet Are You Following? REGULAR Information not available 07/15/2014 Tobacco Use (smoking, Smokeless Tobacco) No Information not available 12/14/2022 Date Of Tobacco Screen 03/25/2024 Information not available 03/25/2024 Marital Status Oksana cartagena Informatio n not available 07/15/2014 What Was The Date Of Your Most Recent Tobacco Screening? 03/25/2024 Information not available 03/25/2024 How Many Children Do You Have? 2 Information not available 07/15/2014 How Much Tobacco Do You Smoke? No Information not available 07/15/2014 Sex: Male Functional Status Question Answer Note LastModified by Organizat ion Details LastModified Time What is your level of alcohol consumption? Occasional Socailly Information not available 07/15/2014 What is your occupation? Retired Information not available 07/15/2014 What is your exercise level? Moderate 3xs a week Information not available 07/15/2014 Mental Status None recorded. Family History Relationship Description Onset Age of this Age Resolved Age Notes LastModified by Organization Details LastModified Time Father Malignant tumor of colon [email or web address] Not available 2014 08:25:02 Medical History No medical history recorded. Immunizations Vaccine Type Date Status Note Provider Nam e and Address Organization Details Recorded Time Tdap 2 completed DEDRA Meza [facility] 12/14/2022 10:03:10 Influenza, split virus, trivalent, preservative 3 completed DEDRA Meza [facility] 12/14/2022 10:03:10 influenza, unspecified formulation 9 completed ANITA Soto [facility] 11/29/2021 10:30:26 influenza, unspecified formulation 5 completed ANITA Soto [facility] 11/29/2021 10:30:26 Novel [id number], preservative-free 0 completed [facility] 10:03:10 zoster recombinant 0 completed [facility]14[facility]22 10:03:10 zoster recombinant 0 [facility] 11/29/2021 10:30:26 COVID-19, mRNA, LNP-S, PF, 30 mcg/0.3 mL dose 1 completed Plascenciajay Benitez [facility]ESSIC[facility] 11/29/2021 10:30:26 Influenza, split virus, quadrivalent, preservative 9 completed Plascencia Emmanuel [facility] 11/29/2021 10:30:26 Influenza, split virus, quadrivalent, PF 1 completed Thais Benitez [facility] 11/29/2021 10:30:26 COVID-19, mRNA, LNP-S, PF, 30 mcg/0.3 mL dose 1 completed [facility]ais Benitez [facility] 11/29/2021 10:30:26 Influenza, MDCK, quadrivalent, PF 2 completed [facility] 12/14/2022 10:03:10 COVID-19, mRNA, LNP-S, bivalent, PF, 30 mcg/0.3 mL dose 2 completed [facility] Ching [facility] 12/14/2022 10:03:10 Influenza, split virus, trivalent, PF 6 completed [facility] 12/14/2022 10:03:10 Influenza, split virus, trivalent, PF 7 completed [facility] 12/14/2022 10:03:10 Influenza, split virus, quadrivalent, PF 0 completed DEDRA Meza [facility] 12/14/2022 10:03:10 Influenza, split virus, quadrivalent, PF 5 completed DEDRA Meza [facility] 12/14/2022 10:03:10 Influenza, split virus, quadrivalent, PF 8 completed DEDRA Meza [facility] 12/14/2022 10:03:10 Td (adult), 5 Lf tetanus toxoid, preservative free, adsorbed 3 [facility] 07/15/2024 08:45:19 Past Encounters Encounter ID Performer Location Encounter Start Date Encounter Closed Date Diagnosis/Indication Diagnosis SNOMED-CT Code Diagnosis ICD10 Code Diagnosis Note [id number] Raffi Hurtado III, MD [address] [address] 03/02/2014 12:00:50 03/02/2014 12:35:53 Epigastric pain 64568140 increase omeprazole to BID. in b/w Mylanta or Maalox. Allergic rhinitis [id number] Lisseth Fair PA-C [address] [address] 03/23/2014 14:24:04 03/23/2014 16:07:35 Acute sinusitis [id number] Rx Augmentin. Rest, fluids, saline nasal spray; ibuprofen/ tylenol PRN. Follow up in 3-4 days if not improving or sooner if worsening. [id number] Raffi Hurtado III, MD [address] [address] 04/03/2014 10:55:09 04/03/2014 11:25:57 Neoplasm of uncertain behavior of skin 44632845 removed. [id number] [facility] [address] [place] [address] 10/12/2009 00:00:00 [id number] [facility] [address] [place] [address] 10/31/2011 00:00:00 [id number] [facility] [address] [place] [address] [place] [address] 02/14/2012 00:00:00 [id number] [facility] [address] [place] [address] [place] [address] 04/09/2013 00:00:00 [id number] [facility] [address] [place] [address] [place] [address] 10/18/2010 00:00:00 [id number] [facility] [address] [place] [address] [place] [address] 10/28/2010 00:00:00 [id number] [facility] [address] [place] [address] [place] [address] 05/19/2009 00:00:00 [id number] [facility] [address] [place] [address] [place] [address] 06/08/2009 00:00:00 [id number] [facility] [address] [place] [address] [place] [address] 07/26/2009 00:00:00 [id number] [facility] [address] [place] [address] [place] [address] 08/05/2009 00:00:00 [id number] [facility] [address] [place] [address] [place] [address] 10/04/2009 00:00:00 [id number] [facility] [address] [place] [address] [place] [address] 12/02/2009 00:00:00 [id number] [facility] [address] [place] [address] [place] [address] 03/29/2010 00:00:00 [id number] [facility] [address] [place] [address] [place] [address] 04/12/2010 00:00:00 [id number] [facility] [address] [place] [address] [place] [address] 07/18/2010 00:00:00 [id number] [facility] [address] [place] [address] [place] [address] 08/08/2010 00:00:00 [id number] [facility] [address] [place] [address] [place] [address] 04/18/2011 00:00:00 [id number] [facility] [address] [place] [address] [place] [address] 07/06/2011 00:00:00 [id number] [facility] [address] [place] [address] [place] [address] 08/11/2011 00:00:00 [id number] [facility] [address] [place] [address] [place] [address] 04/26/2012 00:00:00 [id number] [facility] [address] [place] [address] [place] [address] 12/13/2012 00:00:[id number] [address] 07/10/2014 11:03:00 07/10/2014 13:13:05 Acute sinusitis [id number] Rx Augmentin. Rest, fluids, saline nasal spray; ibuprofen/ tylenol PRN. Follow up in 3-4 days if not improving or sooner if worsening. [id number] MD Carlos Velazquez III[address] [address] 07/15/2014 08:46:39 07/15/2014 09:30:14 Adult health examination [id number] Galeana's esophagus [id number] Asthma 029439443 Allergic rhinitis 63323273 Chronic ty pe B viral hepatitis 60057434 Seborrheic dermatitis 68441662 [id number] MD Carlos Velazquez III[address] [address] 09/02/2014 10:29:34 09/02/2014 11:07:59 Acute sinusitis 62395245 Pneumonia [id number] MD Carlos Velazquez III[address] [address] 12/11/2014 11:19:44 12/11/2014 11:58:22 Seborrheic psoriasis [id number] Lisseth Lasorsa, PA-C [address] [address] 02/22/2015 14:51:17 02/22/2015 15:19:00 Acute sinusitis [id number] Rx Augmentin. Rest, fluids, saline nasal spray; ibuprofen/ tylenol PRN. Follow up in 3-4 days if not improving or sooner if worsening. [id number] Raffi Hurtado III, MD [address] [address] 07/15/2015 09:36:40 07/15/2015 09:47:33 Allergic rhinitis 74327847 J30.9 nasal hydration. continue flonase. [id number] Raffi Hurtado III, MD [place] [address] 7 07/16/2015 08:01:39 07/16/2015 08:36:44 Adult health examination 835748216 Z00.00 Neoplasm o f uncertain behavior of skin 40815341 D48.5 removed. Allergic rhinitis 058744 04 J30.9 nasal hydration. continue flonase. Asthma 043640962 J45.90 9 Galeana's esophagus 3029 76829 K22.70 EGD Chronic ty pe B viral hepatitis 87945563 B18.1 [id number] Raffi Hurtado III, MD [address] [address] 08/17/2015 14:11:54 08/17/2015 14:46:12 Neoplasm of uncertain behavior of skin 28623552 D48.5 removed. [id number] Raffi Hurtado III, MD [facility] [address] [place] [id number] 7 09/14/2015 09:15:20 09/14/2015 10:10:18 Acute sinusitis 76650615 J01.90 Acute sinusitis. Will trial different abx and sent in prednisone as usual course for sinus infection. F/u with PCP if not resolving ka [id number] Raffi Hurtado III, MD [address] [address] 7 11/01/2015 10:17:17 11/01/2015 13:15:46 Complaining of erectile dysfunction 875148196 N52.9 we dicussed how to take the viagra, risks, and nuances. [id number] Raffi Hurtado III, MD [address] [address] 7 07/17/2016 09:57:50 07/17/2016 10:42:22 Adult health examination 575676702 Z00.00 Full code status. Encouraged patient to discuss medical decisions with Health Care Proxy. Discussed importance of healthy/ba lanced diet. Encouraged high fiber, adequate calcium, minimizing caffeine and alcohol. Encouraged aerobic exercise 5x/week. Discussed Colonoscop y screening recommenda tions. Discussed prostate cancer screening recommenda tions. Discussed one time screen for hepatitis C. If smoker, discussed lung cancer screening recommenda tions. Chronic ty pe B viral hepatitis 96754267 B18.1 labs as above. Galeana's esophagus 3029 52506 K22.70 EGD utd. cont ppi. Family his tory of cancer of colon 269705473 Z80.0 cscope utd. Allergic rhinitis 901921 04 J30.9 he is on allergy injections . [id number] Raffi Hurtado III, MD [address] [address] 7 08/15/2016 09:35:13 08/15/2016 09:59:49 Urinary symptoms 953098635 R39.9 prostate exam is normal.rec ommended trying some super beta prostate. recheck psa in 2 months. [id number] Raffi Hurtado III, MD [address] [address] 7 08/23/2016 11:11:41 08/23/2016 11:30:42 Acute sinusitis 92209271 J01.90 [id number] Toni Granado PA-C [address] [address] 7 09/19/2016 14:36:07 09/19/2016 17:16:23 Posterior rhinorrhea 64480228 R09.82 Pt presents today for a cough, PND and rhinorrhea x 1 month. Pt notes he has receieved multiple treatments for sinus infections and runny nose, has not had any improvemen t. Has tried a myriad of otc therapies w/ minimal improvemen t. Notes he has not stuck to one method for a prolonged period of time, does not notice any improvemen t initially and moves on to the next method. Exam realtively benign, low concern for anything bacterial at this time. Advised likely allergic rhinitis causing most of symptoms. Will try mix of loratadine and guaifenesi n and advised to keep on regimen for a few weeks, if no improvemen t should f/u. Prostate s pecific antigen above reference range 349397295 R97.20 Pt notes he would like PSA drawn earlier than 4month guideline given to him by PCP. Pt notes he was told that level was slightly elevated. Reassured pt that last level drawn was high normal but pt persistent would like rechecked. Will draw a this time. [id number] Raffi Hurtado III, MD [address] [address] 7 02/13/2017 11:22:53 02/13/2017 13:32:26 Acute upper respiratory infection 61988432 J06.9 allergic sxs vs sinuisitis . trial predn prabha. call me in 5 days with symptom improvemen t. [id number] Raffi Hurtado III, MD [address] [address] 7 03/26/2017 10:54:27 03/26/2017 11:30:29 Allergic rhinitis 24885185 J30.9 he is on allergy injections . Posterior rhinorrhea 758 85715 R09.82 Gastroesop hageal reflux disease without esophagitis 748652395 K21.9 Acute sinusitis 00767333 J01.90 treat. Calculus o f kidney and ureter 169268344 N20.2 he had a right ureteral stone on his recent trip to [place]. his sxs have resolved. [id number] Raffi Hurtado III, MD [address] [address] 05/29/2017 09:53:30 05/29/2017 11:47:57 Acute sinusitis 38198807 J01.90 probable reactive to allergens. let me know is not better 4-5 days. [id number] Raffi Hurtado III, MD [address] [address] 7 07/18/2017 08:18:43 07/18/2017 09:05:48 Adult health examination 724870064 Z00.00 he is doing very well. he will need repeat cscope end of . ( fam hx) Allergic rhinitis 818986 04 J30.9 he is on allergy injections . Galeana's esophagus 3029 86952 K22.70 EGD cpming up this year. Seborrheic dermatitis 50 869171 L21.9 Chronic ty pe B viral hepatitis 09604369 B18.1 labs as above. [id number] Raffi Hurtado III, MD [address] [address] 7 08/09/2018 08:22:35 08/09/2018 16:11:53 Adult health examination 999827375 Z00.00 labs today. he is generally healthy. Family his tory of cancer of colon 838158936 Z80.0 cscope scheduled. Allergic rhinitis 179250 04 J30.9 he is on allergy injections . Galeana's esophagus 3029 06392 K22.70 EGD utd. Benign pro static hyperplasia 369991958 N40.1 he would like to try an alpha rosa maria. we discussed the interactio n with viagra. Impotence 761729740 N52. 9 he breaks into 1/3 or4th at a time. Seborrheic dermatitis of scalp 461492638 L21.0 use topicals. Seborrheic psoriasis 258 38256 L40.8 Seborrheic dermatitis 50 962929 L21.9 [id number] Raffi Hurtado III, MD [address] [address] 7 11/20/2018 10:13:08 11/20/2018 10:35:33 Acute sinusitis 39205593 J01.90 recurrent nature. start prednisone . add the abx if not improved 4-5 days. Benign pro static hyperplasia 680320800 N40.1 worsened lately b/c he has been using a lot of allergy/co ld remedies. refer urologist. [id number] Raffi Hurtado III, MD [address] [address] 7 03/10/2019 11:03:23 03/10/2019 12:05:26 Dengue 38224092 A90 he is recovering . fluids, rest. keep in touch with me. recheck labs. recheck basic. Pruritic rash 28830919 L 28.2 hydroxyzin e prn. [id number] Raffi Hurtado III, MD [address] [address] 7 05/12/2019 11:07:16 05/12/2019 12:14:06 Acute sinusitis 72125192 J01.90 recurrent nature. start prednisone . add the abx if not improved 4-5 days. [id number] Raffi Hurtado III, MD [address] [address] 08/12/2019 08:03:04 08/12/2019 08:40:16 Adult health examination 823483496 Z00.00 Phuc is healthy. full labs today. phq9 negative. Benign pro static hyperplasia with outflow obstruction 782863418 N40.1 we discussed options. we will try finasterid e. continue alfuzosin. discussed side effects. Family his tory of cancer of colon 712477188 Z80.0 utd cscope. Allergic rhinitis 562959 04 J30.9 he is on allergy injections . Galeana's esophagus 3029 57919 K22.70 EGD utd. Impotence 856797974 N52. 9 he breaks into 1/3 or4th at a time. Seborrheic dermatitis of scalp 094259900 L21.0 use topicals. Seborrheic psoriasis 258 75751 L40.8 doing well. Chronic ty pe B viral hepatitis 40045271 B18.1 recheck labs. [id number] Meri Otero MD [address] [address] 7 07/07/2020 16:25:51 07/07/2020 16:27:33 Viral screening 435644153 Z11.59 [id number] Raffi Hurtado III, MD [address] [address] 7 08/16/2020 07:54:22 08/16/2020 08:35:31 Adult health examination 385696645 Z00.00 Phuc appears healthy. labs today. he has some aches and pains. cscope utd. Benign pro static hyperplasia with outflow obstruction 626848714 N40.1 he just had urolift with mixed reulsts. ( psa could be a bit up due to that) Family his tory of cancer of colon 677452854 Z80.0 utd cscope. Allergic rhinitis 923287 04 J30.9 he is on allergy injections . Galeana's esophagus 3029 31475 K22.70 EGD utd. Impotence 843521550 N52. 9 he breakssild enafil into 1/3 or4th at a time. Seborrheic dermatitis of scalp 775987622 L21.0 use topicals. Seborrheic psoriasis 258 45573 L40.8 doing well. Chronic ty pe B viral hepatitis 65877661 B18.1 recheck labs. recheck MRI Disorder of bile duct 11 2731936 K83.9 he will setup GI followup at [facility] once he moves. Pain of le ft ankle joint 4140423140 5199015 M25.572 check xrays and some p.t Pain of le ft shoulder joint 4767643996 0051608 M25.512 exercises. Hand wart 730777323 B07. 8 cryo [id number] Aidan Richardson MD [facility] [address] [address] 7 07/13/2021 10:02:39 07/14/2021 12:08:01 Benign prostatic hyperplasia with outflow obstruction 524643879 N40.1 Phuc still has some mild urinary symptoms after his UroLift. I have started him on tadalafil 5 mg daily for both his BPH and his ED. We also discussed treatment of post void dribbling I recommende d Kegel exercises and expressing the urethra after voiding. Erectile dysfunction 860 163217 F52.21 Phuc has been responding to a low dose of sildenafil as needed. I think he will do well with a daily tadalafil. [id number] Raffi Hurtado III, MD [facility] [address] [place] [address] 08/29/2021 13:50:32 08/29/2021 14:34:57 Adult health examination 872566708 Z00.00 Phuc is doing ok. he is active. labs today. phq9 negative. colonoscop y due 2023. Calculus o f kidney and ureter 954429658 N20.[address] Arnett Benign pro static hyperplasia with outflow obstruction 676048322 N40.1 he is on cialis. Allergic rhinitis 141271 04 J30.9 he is on allergy injections . Galeana's esophagus 3029 77102 K22.70 EGD utd. Impotence 094117889 N52. 9 he is now on cilais. Seborrheic dermatitis of scalp 531051414 L21.0 use topicals. Seborrheic psoriasis 258 30745 L40.8 doing well. Chronic ty pe B viral hepatitis 48499075 B18.1 recheck labs. recheck MRI Disorder of bile duct 11 7798603 K83.9 he will setup GI followup at [facility] once he moves. [id number] Toni Granado PA-C [facility] [address] [place] [id number] 7 07/12/2022 16:33:20 07/12/2022 16:56:13 Disorder of bile duct 059861767 K83.9 Patient looking to get set up for appropriat e follow-up imaging that is recommende d for him [place]. [place] get [place] Please order today so can be scheduled appropriat radha. Patient to follow-up if any questions or concerns present. [id number] GABRIELLA CHADWICK, ARMIN [address] [address] 12/14/2022 09:57:54 12/14/2022 11:06:37 Adult health examination 435324965 Z00.00 Colonoscop y done 11/2022, repeat in 5 years. Tetanus done in 2011, due for repeat, booster administer ed today. Shingrix UTD. STI screening declined. Sees dentist regularly. Routine eye exam UTD. Discussed mindful eating & exercise. Seat belts and sunscreen encouraged . Check labs: CBC, CMP, TSH, A1C, PSA, microalbum in, & lipid panel. PHQ9 score 0. Follow up at annual physical, or sooner if needed. Screening for malignant neoplasm of colon 290345838 Z12.11 Colonoscop y done 11/2022, repeat in 5 years. Liver func tion tests outside reference range 285390766 R94.5 Patient w/ hx of chronic hepatis B. Check liver work-up below. Abdominal MRI ordered yearly, he has one scheduled today. Administra tion of diphtheria, pertussis, and tetanus vaccine 059866751 Z23 Tetanus booster administer ed today. 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 Check lipid panel today. If it is elevated or if ASVD risk is > 7%, he is agreeable to start a statin. We also discussed dietary changes such as limiting cheese, oil, butter, red meats, and fried foods. Recommende d healthier fats found in avocado, nuts, and fish. Allergic rhinitis 379704 04 J30.9 He failed allergy injections years ago, but has been managing well with OTC allergy medication , fluticason e, and wearing a mask. Asthma 543899089 J45.90 9 Well managed without rescue inhaler. Galeana's esophagus 3029 18599 K22.70 Patient is seeing GI (Dr. Bob) in [place] . He just had an endoscopy 12/12/22. He was advised to take omeprazole 20mg BID x3 months, then decrease to once daily. Gastroesop hageal reflux disease 979798808 K21.9 See above under Galeana's esophagus . Benign pro static hyperplasia 944584201 N40.1 Patient with severe urinary symptoms related to this. Uro-lift has not been successful . He is seeing a urologist at [facility]. He has a prostate MRI pending. Continue tadalafil 5mg every other day without any urinary relief. He is looking into prostate artery embolizati on. Chronic ty pe B viral hepatitis 99906338 B18.1 See above. Inflammato ry disease of liver 282446865 K75.9 See above. Neoplasm of liver 835966 005 C22.0 Patient with hx of chronic hep B and bile duct disorder. Last liver function from 07/2021 was NL. Recheck liver workup as above. He also has an abdominal MRI done yearly, and has an appointmen t today. Kidney stone 30717007 N2 0.0 He has had 2 episodes, none recently. Encouraged to hydrate. Psoriasis 2156407 L40.9 Patient has topical steroid treatments . Encouraged consistent use if symptoms are flaring. He is set up to see dermatolog y next year. [id number] GABRIELLA CHADWICK, ARMIN [address] [address] 02/20/2023 11:47:50 02/20/2023 11:48:18 Low back pain 910344691 M54.50 See above under lower back injury . Lower back injury 444501 005 S39.92XA Patient with a hx of lumbar disc herniation s/p surgery ~23 years ago. He has been managing fine, but re-injured his back 7 weeks ago with lifting a heavy object. OTC meds and chiropract ic care for the past 7 weeks have not been very helpful. Chiropract or also requesting MRI imaging prior to any further adjustment s. Symptoms may suggest sciatica and/or sprain. Discussed option for prednisone burst, which he would like to try. Prednisone 50mg daily x5 days. He would also like to have an MRI done. He is counseled that insurance may deny his request, but I will attempt to order it to [facility] in [place]. Continue with OTC meds and chiropract or prn. He denies any red flag symptoms. Follow up if worsening/ persisting . [id number] CHERYL SENIOR MD [address] [address] 12/06/2023 13:51:52 12/06/2023 15:13:05 Benign prostatic hyperplasia with outflow obstruction 091791587 N40.1 Tadalafil 5 mg po daily symptom control Chronic ty pe B viral hepatitis 59667509 B18.1 Has monitoring MRI annually Gastroesop hageal reflux disease without esophagitis 071068166 K21.9 EGD with Galeana's Discussed dietary management of GERD and common triggers (coffee, carbonated drinks including ebony serene, peppermint , citrus, tomatoes, chocolate, fatty foods spicy foods, and fried foods). Patient advised to avoid alcohol. Discussed smaller portions, sitting upright during meals, and avoiding meals 3 hours prior to bed time. Sending refill of PPI Dribbling of urine 86019 000 N39.43 Sending urologist referral for discussion regarding upcoming procedure Patient is looking for second opinion, informatio n about pros and cons of urocuff procedure. He has had multiple urologic surgeries (Urolift procedure in [facility] in [address] Gutierrez, PEDRO at [facility] 06/28/[address] Jacobsen). Has plan for urocuff, plans for holmium laser prostate surgery (HeLEP) Mar 2024 at [facility]. He is concerned about the side effects and would like to seek expert second opinion. [id number] CHERYL SENIOR MD [facility] [address] [place] [address] 7 03/25/2024 09:37:08 03/25/2024 11:02:48 Adult health examination 714666143 Z00.00 Patient should discuss medical decisions with Health Care Proxy. Recommende d screenings included colonoscop y screening age 45, earlier based on family history/ri sk factors; one time screen for hepatitis C if born between 0272-7094 or has risk factors. Recommend annual low-dose CT scan screening for high-risk individual s ages 50 to 80 years with 20 pack-year history of smoking and current smoker or quit within past 15 years. Reviewed vaccines and current recommenda tions. Basic health topics include aerobic exercise, importance of healthy/ba lanced diet and minimizing caffeine and alcohol. Administra tion of diphtheria, pertussis, and tetanus vaccine 647900362 Z23 TDap 12/14/2022 UTD Screening for malignant neoplasm of colon 065397939 Z12.11 colonoscop y 12/12/22 + tubular adenoma, would repeat in 5 years (2027) Viral screening 47347028 4 Z11.59 The USPSTF recommends one time screening for hepatitis C virus (HCV) infection in adults aged 18 to 79 years. Advance care planning 71 1629052 Z71.89 Has proxy form Influenza vaccine needed 3085505340 106 Z23 Pt presents for influenza vaccinatio n. Patient screened with questions from 6099-4143 Flu protocol. Discussed importance of influenza vaccine due to the patient's risk of contractin g the disease. A handout was offered to enhance understand ing of the effects and side effects of the vaccine. Liver func tion tests outside reference range 995904219 R94.5 Patient w/ hx of chronic hepatis B. Check liver work-up below. Abdominal MRI ordered yearly, he has one scheduled today. Disorder o f lipid metabolism 659492930 E78.9 We discussed his previous lipid panel 07/2021 LDL 152.6 & HDL 55.6 & his ASVD risk of 6.7 %. Check lipid panel today. If it is elevated or if ASVD risk is > 7%, he is agreeable to start a statin. We also discussed dietary changes such as limiting cheese, oil, butter, red meats, and fried foods. Recommende d healthier fats found in avocado, nuts, and fish. Allergic rhinitis 928443 04 J30.9 He failed allergy injections years ago, but has been managing well with OTC allergy medication , fluticason e, and wearing a mask. Galeana's esophagus 3029 54394 K22.70 Patient is seeing GI (Dr. Bob) in [place] . He just had an endoscopy 12/12/22. He was advised to take omeprazole 20mg BID x3 months, then decrease to once daily. Gastroesop hageal reflux disease 770370557 K21.9 See above under Galeana's esophagus . Benign pro static hyperplasia 600913656 N40.1 - About 7-8 years ago has been urinating often, was prescribed tamsulosin 0.4 mg and finasterid e 5 mg PO daily which caused symptoms of fatigue and grogginess - 2019 Dr. Gutierrez Urolift procedure in [facility]; since then he has dripped urine which is very uncomforta ble for him.- He had 2 kidney stones in 2020- Prostate arterial embolism at [facility] 06/28/2023 Dr. Jacobsen; since then he has had a smaller amount of semen and some difficulty with sexual function.- s/p urocuff- plans for holmium laser prostate surgery (HeLEP) Mar 2024 at [facility]. Neoplasm of liver 828904 005 C22.0 Patient with hx of chronic hep B and bile duct disorder. Last liver function from 07/2021 was NL. Recheck liver workup as above. He also has an abdominal MRI done yearly, and has an appointmen t today. Chronic ty pe B viral hepatitis 42234423 B18.1 See above. Inflammato ry disease of liver 418294356 K75.9 See above. Kidney stone 74091435 N2 0.0 He has had 2 episodes, none recently. Encouraged to hydrate. Psoriasis 8752596 L40.9 Patient has topical steroid treatments . Encouraged consistent use if symptoms are flaring. He is set up to see dermatolog y next year. Gastroesop hageal reflux disease without esophagitis 731977600 K21.9 EGD with Galeana's Discussed dietary management of GERD and common triggers (coffee, carbonated drinks including ebony serene, peppermint , citrus, tomatoes, chocolate, fatty foods spicy foods, and fried foods). Patient advised to avoid alcohol. Discussed smaller portions, sitting upright during meals, and avoiding meals 3 hours prior to bed time. Sending refill of PPI Pre-surger y evaluation 969193961 Z01.818 This is patient is medically optimized for surgery. [id number] CHERYL SENIOR MD [facility] [address] [place] [address] 09/04/2024 14:41:40 10/23/2024 08:39:03 Dysuria 26705658 R30.0 Sending bactrim, as he had needed bactrim in the past for UTI. Sending orders for UA and UCx to be done at local lab prior to taking abx.Has Tadalafil 5 mg po daily symptom control Postoperative pain 26602 9007 G89.18 Patient is taking ibuprofen 600mg PO TID PRN Generalize d anxiety disorder 27174168 F41.1 No SI or HIDiscusse d at length side effects of escitalopr amStarting escitalopr am 10mg PO daily, f/u mood in 8 weeks Health Concerns Section Related Observation LastModified by Organization Detai ls LastModified Time None Recorded Concern Status LastModified by Organization Details LastModified Time None Recorded Advance Directives Directive None Recorded Payers Insurance Date Sequence Insurance Name Policy Number Policy [place] Covered Member ID [place] Member ID Guarantor Name 02/11/2025 3 [place] [facility] Phuc Zapata Nick [id number] Phuc Zapata Nick 02/13/2025 1 [place] Phuc Zapata Nick [id number] Phuc S Nick 02/13/2025 2 [place] [employer] [id number] Phuc Zapata Nick [id number] Phuc Jay Nick Notes Date Note Type Note Provider Name and Address Organization Details Recorded Time 12/14/2022 text/html Patient is here for an annual CPE. Allergic rhinitis: Phuc had allergy shots done a while ago, and notes it was a waste of time . He has been managing well with loratadine and fluticasone nasal spray. He also tries to wear a mask when he is outside and exposed to allergens. Galeana's/GERD: Patient is seeing GI in [place] (Dr. Bob). He had a colonoscopy done a couple days ago, and notes he gets these done every 5 years. He also gets an endoscopy done ever 3 years. He has been taking omeprazole. He was advised to take 20mg BID for 3 months, then decrease to once daily. Hep B/Inflammatory liver disease: Patient has an MRI done year, and has an appointment today. HLD: He is not taking any medication for this. Hydronephrosis/Kidn ey stones: Phuc has had 2 episodes of stones. He tries to hydrate, but it is hard because it will make his prostate issues worse. BPH: Phuc has had prostate issues for many years that affect his urinary system. He had a uro-lift done 3 years ago, but it did not work. Phuc is going to urology at [facility]. He has a prostate MRI ordered by them. He has been looking into a procedure called prostate artery embolization, and is interested in getting this done. He is currently taking tadalafil 5mg every other day; it helps with sexual activity but not with urinary symptoms. Psoriasis: Patient sees a client development director. He has a variety of topical steroid treatments for this. 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 He likes to travel, kayaking, and swimming.Diet: He notes his diet is pretty good .Exercise: He tries to stay active.Alcohol/Smok ing/Substances: He drinks wine coolers and beers a couple times a week (more in [place]). He has never smoked. He denies any substance use.Safety: Patient feels safe at home, work, and in relationships. Have you fallen in the past 12 months? no Jackie Gerber MD [address] [place] [address], [phone], [facility] 12/31/2022 18:59:06 02/20/2023 text/html Patient presents to [facility] today for low back pain. Phuc reports having injured his back > 28 years ago. He notes that it caused a herniated disc, and some of the pieces were causing a pinched nerve. He notes that they had to do a surgery to remove the pieces. He has had intermittent pain every since, but it has been manageable. 7 weeks ago he reports having injured it again when lifting a large plant pot. He immediately felt back pain. He typically manages with icing, OTC medications, and seeing the chiropractor. However, the pain has not resolved. He notes that his back pain/flares typically resolve with these methods. This time, he also uniquely feels a pain in his left buttocks that he has not felt before. He describes it as a shooting pain . Patient reports some mild improvement, but is not able to resume his typically activities due to pain with certain movements/exertion. He notes the pain is a 6-7/10 when triggered. OTC meds have only been able to control the discomfort for a couple of hours. Phuc has been seeing his chiropractor in [place] weekly for the past 7 weeks. He states that the chiropractor does not want to perform any further adjustments until he obtains an MRI. Patient denies any urinary/stool incontinence. He reports very mild weakness in his lower extremities, but denies any falls or issues with ambulation. Jackie Gerber MD [address] [place] [address], [phone], [facility] 02/24/2023 11:45:27 12/06/2023 text/html 58 year old M presenting to discuss his prostate. Wakes up 3 times per night to urinate at present.- About 7-8 years ago has been urinating often, was prescribed tamsulosin 0.4 mg and finasteride 5 mg PO daily which caused symptoms of fatigue and grogginess- 2019 Dr. Gutierrez Urolift procedure in [facility]; since then he has dripped urine which is very uncomfortable for him.- He had 2 kidney stones in 2020- Prostate arterial embolism at [facility] 06/28/2023 Dr. Jacobsen; since then he has had a smaller amount of semen and some difficulty with sexual function.- Has plan for urocuff, plans for holmium laser prostate surgery (HeLEP) Mar 2024 at [facility]. He is concerned about the side effects. Social: Oksana Romero is his . Has two sons (Sumit Lehman) who will both be my patient. Originally from [facility]. No tobacco, no recreational drugs. Weekly or less alcohol use. CHERYL SENIOR MD [address] [place] [address], [phone], [facility] 12/14/2023 11:46:23 03/25/2024 text/html 58 yo here for C PE, carries dx of allergic rhinitis, Galeana's/GERD, chronic hep B, HLD, BPH, psoriasis.He had a urocuff performed yesterdayNo acute concerns. Social: Occasional alcohol use - more during summer. No tobacco smoking, vaping, or chewing. No other recreational substances including marijuana.Lives with family. CHERYL SENIOR MD [address] [place] [address], [phone], [facility] 03/26/2024 07:50:07 09/04/2024 text/html 59 yo M vaibhav trammell via telehealth. Initially scheduled for in person visit, but due to inclement weather we changed to telehealth. He has dysuria and urinary frequency/urgency. In Fall 2023 Dr. Garces did a procedure to shrink the prostate. Since then, his urinary stream improved but after 3 months the patient had urgency to urinate. He had a cystoscope which showed dystrophic calcification. He was told this could cause the irritation and voiding symptoms. On Aug 12 2024, patient had another surgery. Now he has urinary frequency, urgency, lower pelvic pain x 1 week. For the first few days of the surgery, he had some hematuria and now the hematuria is worsening. He has anxiety and has been seeing a psychologist (Dr. Esposito) for therapy. 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 No SI or HI, no stefany symptoms. Social:No alcohol use.No tobacco smoking, vaping, or chewing.No other recreational substances including marijuana. CHERYL SENIOR MD [address] [place], [place] [address], [place], [phone], [facility] 10/23/2024 07:18:16
--- OUTSIDE RECORDS SUMMARY | 2025-02-13 15:26 | XMS_ITS | Clinical Summary ---
Author Organization [facility] ity Address [address] [place] [address] Care Team Providers Care Hr Specialist Name Role Phone Unavailable Primary Care Provider Unavailabl e Social History Tobacco Use Types Packs/Day Years Used Date Smoking Tobacco: Never Assessed Sex and Gender Information Value Date Recorded Sex Assigned at Not on file Legal Sex Male 8:35 PM EST Gender Identity Not on file Sexual Orientation Not on file Plan of Treatment Health Maintenance Due Date Last Done Comments DTaP,Tdap,and Td Vaccines (1 - Tdap) 1985 Hepatitis B Vaccines (1 of 3 - 19+ 3-dose series) 1985 Pneumococcal Vaccine: 50+ Ye ars (1 of 1 - PCV) 2016 Zoster Vaccines (1 of 2) 2016 COVID-19 Vaccine (1 - 2023-2 5 season) 2024 Influenza Vaccine (#1) 2025 HIB Vaccines Aged Out No longer eligi ble based on patient's age to complete this topic HPV Vaccines Aged Out No longer eligi ble based on patient's age to complete this topic Hepatitis A Vaccines Aged Out No long er eligible based on patient's age to complete this topic IPV Vaccines Aged Out No longer eligi ble based on patient's age to complete this topic MMR Vaccines Aged Out No longer eligi ble based on patient's age to complete this topic Meningococcal ACWY Vaccine Aged Out N o longer eligible based on patient's age to complete this topic Meningococcal B Vaccine Aged Out No l onger eligible based on patient's age to complete this topic Pneumococcal Vaccine: Pediat rics (0 to 5 Years) and At-Risk Patients (6 to 49 Years) Aged Out No longer eligible b ased on patient's age to complete this topic RSV Immunization Patients Un robert 20 months Aged Out No longer eligible b ased on patient's age to complete this topic Varicella Vaccines Aged Out No longer eligible based on patient's age to complete this topic
--- OUTSIDE RECORDS SUMMARY | 2025-02-13 15:26 | XMS_ITS | Clinical Summary ---
Author Organization [facility] Address [address] [place] [phone] Phone Care Team Providers Care Fbi Profiler Name Role Phone Cheryl Senior MD Primary Care Provider [phone] Allergies Active Allergy Reactions Criticality Noted Date Comments Iodinated Contrast Media 12/06/2023 Medications omeprazole (PRILOSEC) 20 MG capsule Take 1 capsule by mouth 2 (two) times a day. 11/02/2023 Active tadalafiL (CIALIS) 5 MG tablet Take 1 tablet by mouth every morning. 09/01/2023 Active desloratadine (CLARINEX) 5 mg tablet 12/03/2023 Active desonide (DESOWEN) 0.05 % creamIndication s:Psoriasis vulgaris Apply to affected area on the face as needed. 60 g 2 12/07/2023 Active apremilast (OTEZLA) 30 mg tablet Take 1 tablet (30 mg total) by mouth 2 (two) times a day. 60 tablet 2 12/20/2023 Active apremilast (OTEZLA STARTER) 28-day dose pack Take as directed 55 tablet 12/26/2023 Active trospium (SANCTURA) 20 mg tablet Take 1 tablet twice a day by oral route. Active rosuvastatin (CRESTOR) 5 MG tablet Take 1 tablet every day by oral route as directed, for high cholesterol. Active MYRBETRIQ 50 mg Tb24 Take 50 mg by mouth daily. 05/30/2024 Active escitalopram oxalate (LEXAPRO) 10 MG tablet Take 10 mg by mouth daily as needed. 09/04/2024 Active apremilast (OTEZLA) 30 mg tabletIndicatio ns:Psoriasis vulgaris Take 1 tablet (30 mg total) by mouth 2 (two) times a day. 60 tablet 11 12/12/2024 Active Encounters Date Type Department Care Team Description 12/11/2024 1:30 PM EDT Office Visit [facility], [address] [phone] Steffanie Villa PA-C Psoriasis vulgaris (Primary Dx); Melanocytic nevus of trunk; Solar dermatitis; Lentigines; Xerosis of skin; Seborrheic keratosis from Last 3 Months Social History Tobacco Use Types Packs/Day Years Used Date Smoking Tobacco: Never Assessed Education Answer Date Recorded Are you interested in more education? Not on michell e 05/16/2023 Are you concerned about learning? Not on file 05/16/2023 No 05/16/2023 No 05/16/2023 Digital Access Answer Date Recorded No 05/16/2023 No 05/16/2023 Reliable internet access at home? Not on file 05/16/2023 Device with a working camera? Not on file Sex and Gender Information Value Date Recorded Sex Assigned at Male 01/23/2024 9:18 PM EDT Legal Sex Male 1:27 PM EDT Gender Identity Male 01/23/2024 9:18 PM EDT Sexual Orientation Straight 01/23/2024 9: 18 PM EDT Plan of Treatment Upcoming Encounters Date Type Department Care Team (Late st Contact Info) Description 12/16/2025 10:30 AM EDT Office Visit [facility] [address] [place] [phone] Steffanie Villa PA-C [address] [place] [phone] Health Maintenance Due Date Last Done Comments Adult Td,Tdap Booster 1966 LIPID PANEL 1966 COVID-19 VACCINE (#1) 1971 DEPRESSION SCREENING 1978 SMOKING Hx and SMOKELESS TOB ACCO SCREENING 1979 HEPATITIS C SCREENING 1984 HIV ONE-TIME SCREENING (18-6 5 YEARS) 1984 PNEUMOCOCCAL VACCINES (50+ y ears) (1 of 2 - PCV) 1985 ZOSTER VACCINES (1 of 2) 1985 COLOGUARD 2011 COLONOSCOPY 2011 COLORECTAL CANCER SCREENING 2011 FIT TEST 2011 FOBT 2011 SIGMOIDOSCOPY 2011 VIRTUAL COLONOSCOPY 2011 HEPATITIS A VACCINES Aged Out No long er eligible based on patient's age to complete this topic HIB VACCINES Aged Out No longer eligi ble based on patient's age to complete this topic MENINGOCOCCAL VACCINES (ACWY) Aged Out No longer eligible based on patient's age to complete this topic MENINGOCOCCAL VACCINES (B) Aged Out N o longer eligible based on patient's age to complete this topic Medical Devices Not on file Insurance MEDICARE PART A & B [facility] MEDICARE PART A & B [facility] [place] [address] [phone] MEDICARE PART A & B [facility] MEDICARE PART A & B [facility] MEDIC[facility] A & B [facility] MEDICARE PART A & [place] [id number] [facility] MEDICARE PART A & B [facility] MEDICARE PART A & B [facility] Care Teams Fbi Profiler Relationship Specialty Start Date End Date Cheryl Senior MD [address] [place] [address] PCP - General Family Medicine 12/06/23 Additional Source Comments The information contained in this document represents components of the legal health record. It is not the complete legal health record.[facility]
--- NOTE | 2025-02-13 15:36 | A.OFFVIS_ITS ---
Intake Visit Reasons: history of gross hematuria/hx kidney stones Intake Note: Patient is present for HX OF GROSS HEMATURIA /HX KIDNEY STONES Urology Medication:TADALAFIL,MIRABEGRON Antibiotic Allergy:NONE Blood Thinner:NONE Shrink Pit Supervisor Required: No Accompanied by: Self / Same As Patient Allergies No Known Allergies Allergy (Verified 02/13/25 15:44) HPI Comments Details: Phuc is a [place] male. He is seen for the following urologic conditions - lower urinary tract symptoms - kidney stones Complicated history Multiple prior prostate procedures Persistent urgency and frequency Some response from beta agonist Trial combination Myrbetriq with daily tadalafil Addition potassium citrate for renal stones and low pH urine with low citrate on 24 hour Information about male pelvic floor exercises provided Follow-up 2 months for office cystoscopy Based on imaging has calcified area of prostate likely secondary to prostate artery embolization - task OA to get copy of CT Persistent urgency frequency Nocturia x3 with postvoid dripping Potentially interstitial cystitis Discussed urodynamics Initial UA pH 6, 1+ leukocytes Lower urinary tract symptoms Initially storage predominant with some bladder instability Has undergone multiple prostate procedures June 2020 underwent UroLift - [facility] May 2023 [facility] prostate artery embolization March 2024 holmium laser enucleation - removal of UroLift clips July 2024 TURP for dystrophic calcification Imaging CT scan 09/23 - punctate bilateral renal stones, bladder mild wall thickening posteriorly, at the base of bladder is a partially calcified area 3.2 x 2.6 cm with surgical clips. Recommendation consider cystoscopy. Kidney stones 2 prior interventions 24 hour urine with low citrate Review of Systems Const Denies chills and Denies fever(s) Card Reports no additional complaints and Denies syncope Resp Denies cough GI Denies abdominal pain and Denies heartburn Reports as per HPI and Denies change in libido Neuro Denies syncope Psych Denies change in libido Endo Denies change in libido Physical Exam Const General: cooperative, healthy appearing, comfortable and no acute distress Orientation/consciousness: patient oriented x3 HEENT Face and sinus: Yes normal facial exam Mouth: moist mucous membranes Neck Neck: Yes normal visual inspection, Yes full ROM and Yes trachea midline Chest Chest palpation & inspection: normal inspection of the chest Resp Effort & Inspection: normal respiratory effort, able to speak in complete sentences and no respiratory distress GI Inspection: Yes normal to inspection Back/Spine/Pelvis Cervical Spine: normal cervical lordosis Thoracic/Lumbar Spine: thoracic and lumbar spine normal to inspection Skin General skin exam: no rashes or lesions noted Neuro General: patient oriented x3, gait normal, tone normal and moves all extremities Extrem General: Yes normal to inspection and Yes capillary refill normal Assessment & Plan Assessment & Plan (1) Bladder instability: Code(s): N32.89 - Other specified disorders of bladder Category: Medical (2) Urinary urgency: Code(s): R39.15 - Urgency of urination Category: Medical (3) Urinary frequency: Code(s): R35.0 - Frequency of micturition Category: Medical (4) Calcium kidney stones: Code(s): N20.0 - Calculus of kidney Category: Medical Plan Trial daily tadalafil with Myrbetriq Add potassium citrate Two month follow-up office cysto Obtain copy of [facility] CT imaging Medications: New mirabegron ER (Myrbetriq) 50 mg PO DAILY 90 tabs 0RF 90 days R35.0 - Frequency of micturition tadalafil [id number] [facility] GroupGDRX Member [id number] 5 mg PO DAILY 90 tabs 0RF 90 days R35.0 - Frequency of micturition potassium citrate ER 20 mEq (2 x 10 mEq (1,080 mg)) PO BID 360 tabs 0RF 90 days R35.0 - Frequency of micturition Patient Instructions: This note is constructed using voice recognition software. While every effort has been made to ensure accuracy luggage maker errors may have been included. Imaging studies, laboratory and physical exam results were discussed and reviewed in detail. No major barriers to patient understanding were identified. An opportunity to ask questions regarding the treatment plan was provided. All questions were answered. The patient expressed understanding and agreement with the above treatment plan. The patient is aware they should contact our office by phone for worsening of their current condition or the appearance of new urologic symptoms. Compliance is encouraged with any medications and followup testing that is ordered. It is a privilege to participate in the urologic care of your patient. If you have any questions or concerns regarding treatment for the above conditions, or other urologic issues, please do not hesitate to contact me. The office telepho ne contact is [phone]. Sincerely, Dr Yordy Gómez MD, [facility] - Urology Compassionate Specialist Care for the Genitourinary System Coding Level of Care Code New Pt Level 4 (36565) Diagnoses Bladder instability N32.89 Urinary urgency R39.15 Urinary frequency R35.0 Calcium kidney stones N20.0
== END 2025-02-13 16:39 | disposition home or self-care (01) ==
LOC: HO.HUSH 15:24
PROVIDERS: Visit Provider Urology
DX: N32.89 Other specified disorders of bladder (principal); R39.15 Urgency of urination; R35.0 Frequency of micturition; N20.0 Calculus of kidney
CPT/HCPCS: 99204

== ENCOUNTER → 2025-02-13 15:23 | Outpatient (BNVA) | payer MEDICARE, BC, SELFPAY | PROVIDERS: Visit Provider Urology | DX: N32.89 Other specified disorders of bladder (principal); N20.0 Calculus of kidney; R39.15 Urgency of urination; R35.0 Frequency of micturition | CPT/HCPCS: 99202 ==

== ENCOUNTER 2025-03-11 11:02 | Outpatient (AMB) | payer MEDICARE, BC, SELFPAY ==
--- OUTSIDE RECORDS SUMMARY | 2025-02-17 05:00 | XMS_ITS ---
Author Name [facility] [place] Address [address] [place] [id number] Care Team Providers Care Manager Clinical Name Role Phone MELONIE VIVEROS Primary Care Provider Unavailable Insurance Providers: All historical and current Section Date Range: From patient's date of to the date document was created. This section includes the names of all active insurance providers for the patient. Insurance Provider Type of Coverage Plan Name Start of Policy Coverage End of Policy Coverage Group Number Member ID Insurance Provider's Telephone Number Policy [place]'s Name Patient's Relationship to Policy [place] F[place] PREFERRED PROVIDER ORGANIZAT ION (PPO) BASIC FAMIL Y Apr 22, 2007 [id number] FERNANDA PORRAS PATIENT MEDICARE (WNR) MEDICARE (M) PART A Sep 27, 2008 PART A [id number] FERNANDA PORRAS PATIENT MEDICARE (WNR) MEDICARE (M) PART B Sep 27, 2008 PART B [id number] FERNANDA PORRAS PATIENT Selected Encounter This section includes the information on record at [place] for the Encounter. Date/Time Encounter Type Encounter Description Reason Pro vider Source Feb 17, 2025 09:00 AM Outpatient Encounter SUBSTANCE USE DISORDER IND IHE Encounter Template Text not used by [facility] Plan of Treatment: Future Appointments (+ 6 months) and Future Tests (+/- 45 days) The Plan of Treatment section includes future care activities for the patient from all [place] [facility] This section includes future appointments and future orders which are active, pending or scheduled. Future Appointments This section includes appointments that were scheduled to occur 6 months from the date of the Encounter, up to a maximum of 20 appointments. The data comes from all [facility]. Appointment Date/Time Appointment Type Appointme nt Facility Name Mar 19, 2025 12:00 PM AMBULATORY - MEDICINE [facility] Apr 21, 2025 09:30 AM AMBULATORY - PSYCHIATRY [facility] Jun 16, 2025 11:00 AM AMBULATORY - MEDICINE [facility] Active, Pending, and Scheduled Orders This section includes a listing of several types of active, pending, and scheduled orders, including clinic medications orders, diagnostic test orders, procedure orders and consult orders; where the start date of the order is 45 days before the date of the Encounter or 45 days after the date of theEncounter. The data comes from all [facility]. Test Date/Time Test Type Test Details Facility Name Jan 09, 2025 01:53 PM Consult Order BHIP PSYCH OTHERAPY/SOPC OUTPT [employer] [facility] Jan 16, 2025 11:09 AM Consult Order BHIP PSYCH IATRIC MEDICATION/SOPC OUTPT [employer] [facility] Social History: Smoking Status (Most current) and Tobacco Use (All prior to encounter date) This section includes the most current, and the historical, smoking and tobacco- related health factors from the [place] facility where the Encounter took place. Current Smoking Status This section includes the most current smoking, or tobacco-related health factor, from the [place] facility where the Encounter took place. Date/Time Current Smoking Status Comment Facil ity December 08, 2024 11:31 AM VA-TOBACCO NEVER U SED CIGARETTES [facility] Tobacco Use History This section includes a history of the smoking, or tobacco-related health factors, that were collected on or before the date of the Encounter. The data comes from the [place] facility where the Encounter took place. Date/Time Smoking Status/Tobacco Use Comment F acility December 08, 2024 11:31 AM VA-TOBACCO NEVER U SED OTHER TYPE [facility] Encounter Notes: All associated encounter notes This section contains the clinical notes associated to the Encounter. Date/Time Encounter Note(s) Provider Source Feb 06, 2025 03:04 PM ADMINISTRATIVE NOT E: LOCAL TITLE: ADMINISTRATIVE NOTE STANDARD TITLE: ADMINISTRATIVE NOTE DATE OF NOTE: FEB 06, 2025@15:04 ENTRY DATE: FEB 06, 2025@15:04:37 AUTHOR: ELLA STOKES EXP COSIGNER: URGENCY: STATUS: COMPLETED ADMINISTRATIVE NOTE Has ADDENDA Assembly Machine Tool Setter received voicemail from requesting to cancel 02/17 apppt with Provider Joellen. Angwin stated he had too much going on right now to attend appointments . Angwin stated he was safe and would contact provider when he was able to return to attending appointment again. /violet/ ELLA STOKES MSA Terrazzo Mechanic Helper Signed: 02/06/2025 15:06 Receipt Acknowledged By: 02/09/2025 09:19 /violet/ Yary Cuenca PsyD PTSD/NEIL SPECIALIST 02/09/2025 ADDENDUM STATUS: COMPLETED AMSA dispositioned the RTC for this Angwin as no longer necessary per this note. /es/ LAURA CRANE ADVANCED FIREMAN Signed: 02/09/2025 11:55 ELLA STOKES [facility]
--- NOTE | 2025-03-11 11:03 | A.OFFVIS_ITS ---
Intake Visit Reasons: Additional questions concerning Urine Analysis Intake Note: Patient is present for follow up pt had questions about his urinalysis Urology Medication:TADALAFIL,MIRABEGRON, POTASSIUM Antibiotic Allergy:NONE Blood Thinner:NONE Vp Integration Required: No Accompanied by: Self / Same As Patient Allergies No Known Allergies Allergy (Verified 03/31/25 11:40) HPI Comments Details: Phuc is a [place] male. He is seen for the following urologic conditions - lower urinary tract symptoms - kidney stones Complicated history Multiple prior prostate procedures Persistent urgency and frequency Some response from beta agonist Trial combination Myrbetriq with daily tadalafil Addition potassium citrate for renal stones and low pH urine with low citrate on 24 hour Information about male pelvic floor exercises provided Office cystoscopy performed - neovascularity with dystrophic calcification on prostatic remnant Based on imaging has calcified area of prostate likely secondary to prostate artery embolization - task OA to get copy of CT Persistent urgency frequency Nocturia x3 with postvoid dripping Potentially interstitial cystitis Discussed urodynamics Initial UA pH 6, 1+ leukocytes Lower urinary tract symptoms Initially storage predominant with some bladder instability Has undergone multiple prostate procedures June 2020 underwent UroLift - [facility] May 2023 [facility] prostate artery embolization March 2024 holmium laser enucleation - removal of UroLift clips July 2024 TURP for dystrophic calcification Imaging CT scan 09/23 - punctate bilateral renal stones, bladder mild wall thickening posteriorly, at the base of bladder is a partially calcified area 3.2 x 2.6 cm with surgical clips. Recommendation consider cystoscopy. Kidney stones 2 prior interventions 24 hour urine with low citrate PFSH Medical History (Updated 04/02/25 @ 13:54 by Marcelina Mcarthur RN) Entrapment syndrome of left renal vein Barretts esophagus Chronic hepatitis B Elevated cholesterol GERD (gastroesophageal reflux disease) Renal calculi BPH (benign prostatic hyperplasia) Surgical History (Updated 04/03/25 @ 07:23 by Aneta Schmitt RN) History of back surgery History of esophagogastroduodenoscopy (EGD) H/O colonoscopy Review of Systems Const Denies chills and Denies fever(s) Card Reports no additional complaints and Denies syncope Resp Denies cough GI Denies abdominal pain and Denies heartburn Reports as per HPI and Denies change in libido Neuro Denies syncope Psych Denies change in libido Endo Denies change in libido Physical Exam Const General: cooperative, healthy appearing, comfortable and no acute distress Orientation/consciousness: patient oriented x3 HEENT Face and sinus: Yes normal facial exam Mouth: moist mucous membranes Neck Neck: Yes normal visual inspection, Yes full ROM and Yes trachea midline Chest Chest palpation & inspection: normal inspection of the chest Resp Effort & Inspection: normal respiratory effort, able to speak in complete sentences and no respiratory distress GI Inspection: Yes normal to inspection Back/Spine/Pelvis Cervical Spine: normal cervical lordosis Thoracic/Lumbar Spine: thoracic and lumbar spine normal to inspection Skin General skin exam: no rashes or lesions noted Neuro General: patient oriented x3, gait normal, tone normal and moves all extremities Extrem General: Yes normal to inspection and Yes capillary refill normal Office Procedures Cystoscopy Consent Discussed risk and benefit or proposed procedure with the patient. Information consent for procedure given to the patient. Discussed technical aspects, risks, benefits and alternatives in full. Addressed all of the patient's questions and concerns regarding the procedure. The patient demonstrated knowledge and understanding. They wish to proceed with this procedure. Preparation The patient was prepped in the usual manner. A cloth printer was present and in the room. Genitalia was prepped with betadine solution in a sterile manner. Lidocaine Jelly 2% was placed into the urethra and 16Fr flexible Olympus cystoscope was inserted into the meatus after adequate lubrication. Procedure Cystoscopy performed using a disposable Urovue digital 16 Tajik cystoscope. Meatus circumcised Urethra anterior and posterior urethra normal Prostatic Urethra left lobe recurrence with dystrophic calcification Bladder examination with retroflexion of cystoscope Bladder Orifices normal shape and position Bladder Capacity Normal Trabeculations Grade 0 Cellule Formation None Diverticulum Formation None Mucosal Erythema None Bladder Tumor None [id number] DISPOSABLE SCOPE URO-G FLEXIBLE SCOPE Procedure code (CPT) selection complete Office Meds lidocaine HCl 2 % mucosal jelly in applicator Performing Provider: Yordy Gómez MD Performing Location: [facility] Administered by: Marcelina Barahona RN on 03/11/25 12:15 Dose Route Admin Location Dispensed Lot Number Expiration Date [facility] Die Attaching Machine Tender 10 mL intra-urethral 10 mL nitrofurantoin monohydrate/macrocrystals 100 mg capsule Performing Provider: Yordy Gómez MD Performing Location: [facility] Administered by: Marcelina Barahona RN on 03/11/25 12:15 Dose Route Admin Location Dispensed Lot Number Expiration Date NDC Die Attaching Machine Tender 100 mg PO 1 cap Assessment & Plan Assessment & Plan (1) Dystrophic calcification of bladder: Code(s): N32.89 - Other specified disorders of bladder Category: Medical (2) Prostatitis: Code(s): N41.9 - Inflammatory disease of prostate, unspecified Category: Medical Plan We discussed the nature of the decision and reasonable options for performing a prostate intervention. Interventions include TURP, GreenLight laser enucleation of the prostate, GreenLight laser ablation of the prostate, transurethral incision of the prostate, and I-Tend prostate procedure. Options such as medical therapy were discussed. The relative uncertainties and benefits related to each alternate procedure were adequately discussed. General surgical risks including, but not limited to, pain, bleeding, infection, myocardial infarction, pulmonary embolus, deep vein thrombosis and cerebrovascular accident which may result in further hospitalization were discussed. Full disclosure of the procedure as well as all major risks, benefits and complications were discussed including but not limited to damage to the urethra or bladder neck, recurrent BPH, retrograde ejaculation, bladder infection, urge, de mathieu frequency, incomplete emptying, dysuria, remote chance of erectile dysfunction, epididymitis, and meatal stenosis. The success rate of the procedure was discussed. Success of the procedure in the short-term does not necessarily guarantee that long-term success will be maintained. Suitable follow up will need to be maintained. The patient showed understanding of discussion. An opportunity was provided for questions to be answered and wishes to proceed with the following procedure. - combination GreenLight laser with bipolar resection - start finasteride to act as reduction blood flow Orders: Orders AMB Cystoscopy 03/11/25 R39.15 - Urgency of urination Medications: New finasteride 5 mg PO DAILY 90 tabs 0RF 90 days N41.9 - Inflammatory disease of prostate, unspecified Patient Instructions: This note is constructed using voice recognition software. While every effort has been made to ensure accuracy director sanitation bureau errors may have been included. Imaging studies, laboratory and physical exam results were discussed and reviewed in detail. No major barriers to patient understanding were identified. An opportunity to ask questions regarding the treatment plan was provided. All questions were answered. The patient expressed understanding and agreement with the above treatment plan. The patient is aware they should contact our office by phone for worsening of their current condition or the appearance of new urologic symptoms. Compliance is encouraged with any medications and followup testing that is ordered. It is a privilege to participate in the urologic care of your patient. If you have any questions or concerns regarding treatment for the above conditions, or other urologic issues, please do not hesitate to contact me. The office telephone contact is [phone]. Sincerely, Dr Yordy Gómez MD, [facility] - Urology Compassionate Specialist Care for the Genitourinary System Coding Level of Care Code Est Pt Level 4 (92919) Complex EM visit Add On G2211 Diagnoses Dystrophic calcification of bladder N32.89 Prostatitis N41.9 CPT Codes Cystoscopy - CPT: 19087-[id number] ([id number])
--- OUTSIDE RECORDS SUMMARY | 2025-03-11 12:00 | XMS_ITS | Clinical Summary ---
Author Organization [facility] Address [address] [place] [id number] Phone Care Team Providers Care Structural Technician Name Role Phone Cheryl Senior MD Primary Care Provider [phone] Allergies Active Allergy Reactions Criticality Noted Date [...] EDT Office Visit [facility], [address] [phone] Steffanie Villa PA-C Psoriasis vulgaris [...] Office [facility] [address] [place] [phone] Steffanie Villa PA-C [address] [place] [phone] Health Maintenance Due Date Last Done [...] file Insurance MEDICARE PART A & B [facility] MEDICARE PART A & B [facility] [address] [address] [phone] MEDICARE PART A & B [facility] MEDICARE PART A & [facility] PART A & [facility] PART A [place] [id number] [facility] MEDICARE PART A & B [facility] MEDICARE PART A & B [facility] Care Teams Structural Technician Relationship Specialty Start Date End Date Cheryl Senior MD [address] [place] [address] PCP - General Family Medicine 12/06/23 Additional Source Comments The information contained in this document represents components of the legal health record. It is not the complete legal health record.[facility]
--- OUTSIDE RECORDS SUMMARY | 2025-03-11 12:01 | XMS_ITS | Clinical Summary ---
Author Organization [facility] ity Address [address] [place] [address] Care Team Providers Care Custodian Blood [employer] Name Role Phone Unavailable Primary Care Provider [...] Vaccines (1 of 2) 2016 COVID-19 Vaccine ( - 2023-2 5 season) 2024 Depression Screening 07/30/2024 Influenza Vaccine (#1) 2025 HIB Vaccines Aged [...]
== END 2025-03-11 13:25 | disposition home or self-care (01) ==
LOC: HO.HUSH 11:02
PROVIDERS: Visit Provider Urology
DX: R39.15 Urgency of urination (principal)
CPT/HCPCS: 52000; 99024

== ENCOUNTER → 2025-03-11 11:02 | Outpatient (BNVA) | payer MEDICARE, BC, SELFPAY | PROVIDERS: Visit Provider Urology | DX: N32.89 Other specified disorders of bladder (principal); N41.9 Inflammatory disease of prostate, unspecified | CPT/HCPCS: 52000; 99212 ==

== ENCOUNTER 2025-03-31 11:38 | Outpatient (AMB) | payer MEDICARE, BC, SELFPAY ==
--- OUTSIDE RECORDS SUMMARY | 2025-03-26 07:00 | XMS_ITS ---
Author Name [facility] [place] [facility] [place] Address [address] [place] [address] Care Team Providers Care Microsoft Architect Name Role Phone MELONIE VIVEROS Primary Care [...] Name Patient's Relationship to Policy [place] FEP PREFERRED PROVIDER ORGANIZAT ION (PPO) BASIC FAMIL Y Apr 22, 2007 [id number] FERNANDA PORRAS PATIENT MEDICARE (WNR) MEDICARE (M) PART A Sep 27, 2008 PART A [id number] FERNANDA PORRAS PATIENT MEDICARE (WNR) MEDICARE (M) PART B Sep 27, 2008 PART B [id number] FERNANDA PORRAS PATIENT Selected Encounter This section includes the information on record at [place] for the Encounter. Date/Time Encounter Type Encounter Description Reason Provider Source Mar 26, 2025 11:00 AM COMPRE OPH EXAM NEW PT 1/> OPTOMETRY ICD-10-CM H40.013 Open angle with borderline findings, low risk, bilateral OSHINSKIE,LAURYN BARBARA J IHE Encounter Template Text not used by [place] Assessments - Encounter Diagnoses This section includes the primary and secondary diagnoses documented for the Encounter. Date/Time Primary/Secondary Diagnosis Diagnosis Name Provider Source Mar 26, 2025 03:00 PM PRIMARY Open angle with borderline findings, low risk, bilateral OSHINSKIE,LAURYN BARBARA J [facility] Mar 26, 2025 03:00 PM SECONDARY Presbyopia OSHINSKIE,LAURYN BARBARA J [facility] Mar 26, 2025 03:00 PM SECONDARY Regular astigmatism, bilateral OSHINSKIE,LAURYN BARBARA J [facility] Plan of Treatment: Future Appointments (+ 6 months) and Future Tests (+/- 45 days) The Plan of Treatment section includes future care activities for the patient from all [place] [facility]. This section includes future appointments and future orders which are active, pending or scheduled. Future Appointments This section includes appointments that were scheduled to occur 6 months from the date of the Encounter, up to a maximum of 20 appointments. The data comes from all [place] treatment facilities. Appointment Date/Time Appointment Type Appointme nt Facility Name Jun 16, 2025 11:00 AM AMBULATORY - MEDICINE [facility] Active, Pending, and Scheduled Orders This section includes a listing of several types of active, pending, and scheduled orders, including clinic medications orders, diagnostic test orders, procedure orders and consult orders; where the start date of the order is 45 days before the date of the Encounter or 45 days after the date of theEncounter. The data comes from all [place] treatment [facility]. Test Date/Time Test Type Test Details Facility Name Mar 16, 2025 12:00 AM Laboratory - Chemi stry Order OCCULT BLOOD FIT X1 SCREEN (MFP ONLY) STOOL FECES SP [facility] Social History: Smoking Status (Most current) and Tobacco Use (All prior to encounter date) This section includes the most current, and the historical, smoking and tobacco- related health factors from the [place] facility where the Encounter took place. Current Smoking Status This section includes the most current smoking, or tobacco-related health factor, from the [place] facility where the Encounter took place. Date/Time Current Smoking Status Comment Mino itmaddi December 08, 2024 11:31 AM VA-TOBACCO NEVER U SED CIGARETTES [facility] Tobacco Use History This section includes a history of the smoking, or tobacco-related health factors, that were collected on or before the date of the Encounter. The data comes from the [place] facility where the Encounter took place. Date/Time Smoking Status/Tobacco Use Comment F acadam December 08, 2024 11:31 AM VA-TOBACCO NEVER U SED OTHER TYPE [facility] Encounter Notes: All associated encounter notes This section contains the clinical notes associated to the Encounter. Date/Time Encounter Note(s) Provider Source Mar 26, 2025 11:25 AM OPTOMETRY NOTE: LOCAL TITLE: OPTOMETRY NOTE STANDARD TITLE: OPTOMETRY NOTE DATE OF NOTE: MAR 26, 2025@11:25 ENTRY DATE: MAR 26, 2025@11:26:01 AUTHOR: LEONA SANTANA COSIGNER: URGENCY: STATUS: COMPLETED 59 yo MALE new pt c/o WILSON and eyestrain even with OTCs. Broke his last pair of prescription glasses. Had LASIK about 10 yrs ago. 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 12/09/2024November,MARIE P Bilateral hearing loss H91.93 01/02/2025November,MARIE P Kidney stone N20.0 01/02/2025November,MARIE P Active Outpatient Medications (including Supplies): Active Non-VA Medications Status = 1) Non-VA APREMILAST 30MG TAB 30MG BY MOUTH TWICE DAILY ACTIVE Indication: FOR MODERATE TO SEVERE PLAQUE PSORIASIS 2) Non-VA ESCITALOPRAM OXALATE 20MG TAB 10MG BY MOUTH ONCE ACTIVE DAILY Indication: FOR REPEATED EPISODES OF ANXIETY 3) Non-VA IBUPROFEN TAB 200 MG BY MOUTH EVERY 8 HOURS NEEDED ACTIVE Indication: FOR PAIN 4) Non-VA MIRABEGRON 50MG SA TAB 50MG BY MOUTH TWICE DAILY ACTIVE Indication: FOR OVERACTIVE BLADDER 5) Non-VA OMEPRAZOLE 20MG EC CAP 40MG BY MOUTH EVERY MORNING 30 ACTIVE MINUTES BEFORE BREAKFAST Indication: FOR GASTROESOPHAGEAL REFLUX DISEASE 6) Non-VA ROSUVASTATIN CA 10MG TAB 5MG BY MOUTH ONCE DAILY ACTIVE Indication: FOR HIGH CHOLESTEROL 7) Non-VA TADALAFIL 5MG TAB 5MG BY MOUTH NEEDED ACTIVE Indication: FOR ERECTILE DYSFUNCTION 8) Non-VA TROSPIUM CL 20MG TAB 20MG BY MOUTH ONCE DAILY ACTIVE Indication: FOR OVERACTIVE BLADDER allergies: CONTRAST MEDIA HEMOGLOBIN A1C TREND No data available VA without OD 20/20 OS 20/[address]-[id number] OS +0.25-0.02f064 refraction OD pl-0.78z440 20/15 OS +0.25-1.61m239 20/15 pupils: PERRL - RAPD OU EOM: full OU Conf: full OU near cover test ortho slit lamp cornea clear OU no K spindle OU AC D and Q OU lids/lashes OS may have mild lid retraction pt says his OD has had ptosis for many years iris brown, flat OU no tids OU conj bulbar clear OU palpebral clear OU angles gr 4 IOP OD 16 OS 16 time: 11:30 am Side effects of dilation medications discussed, patient stated clear understanding, and patient consented to dilation. Dilation warning given re: driving while dilated, blurred vision for several hours dilated 1% tropicamide( x ) 2.5 % phenylephrine( x ) lens clear OU no PXF OU vitreous clear OU c/d OD 0.8 OS 0.7 no disc hemes OU rims looks healthy OU disc color pink OU disc margins distinct ou macula clear OU vessels 2/3 periph intact ou A 1) glaucoma suspect, low risk -open angle with borderline findings, low risk, bilateral 2) regular astigmatism OU and presbyopia P 1) RTC in 6 months for VF, OCT and IOP check 2) pt prefers DVO and NVOs. med reconciliation: All Ophthalmic medications were reconciled ( ) ( x ) pt is not taking any ophthalmic medications ( ) the following ophthalmic meds were discontinued: pt deferred receiving list of medications Glaucoma: Patient was educated regarding glaucoma/glaucoma suspect as well as the natural history of this diagnosis including prognosis. Stress importance of compliance and persistency with glaucoma medication when prescribed, timely follow up as well as the role of ancillary testing. Exclusion criteria for ancillary testing include significantly reduced acuity, mental status changes affecting the patient's ability to attend to the test or other physical limitations that would prohibit the patient's ability to participate in testing. /violet/ Leona Santana OD Fee Basis Cash Register Repairer Signed: 03/26/2025 15:00 LEONA SANTANA [facility]
--- OUTSIDE RECORDS SUMMARY | 2025-03-26 08:03 | XMS_ITS ---
Author Name [facility] [place] Address [address] [place] [address] Care Team Providers Care Accounting Specialist Name Role Phone MELONIE VIVEROS Primary Care [...] BASIC FAMIL Y Apr [birth year], 2007 [id number] FERNANDA PORRAS PATIENT MEDICARE (WNR) MEDICARE (M) PART A Sep 27, 2008 PART A [id number] [id number] FERNANDA PORRAS PATIENT MEDICARE (WNR) MEDICARE (M) PART B Sep 27, 2008 PART B [id number] FERNANDA PORRAS PATIENT Selected Encounter This section includes the information on record at [place] for the Encounter. Date/Time Encounter Type Encounter Description Reason Provider Source Mar 26, 2025 12:03 PM FIT SPECTACLES MONOFOCAL OPTOMETRY ICD-10-CM Z46.0 Encounter for fit/adjst of spectacles and contact lenses LAURYN FAJARDO J IHE Encounter Template Text not used by [place] Assessments - Encounter Diagnoses This section includes the primary and secondary diagnoses documented for the Encounter. Date/Time Primary/Secondary Diagnosis Diagnosis Name Provider Source Mar 26, 2025 12:03 PM PRIMARY Encounter for fit/adjst of spectacles and contact lenses ANATOÑADEYSICHRISTEN THEA Lopez [facility] Plan of Treatment: Future Appointments (+ 6 months) and Future Tests (+/- 45 days) The Plan of Treatment section includes future care activities for the patient from all [place] [facility]. This section includes future appointments and future orders which are active, pending or scheduled. Future Appointments This section includes appointments that were scheduled to occur 6 months from the date of the Encounter, up to a maximum of 20 appointments. The data comes from all [place] treatment facilities. Appointment Date/Time Appointment Type Appointme nt Facility Name Jun 16, 2025 11:00 AM AMBULATORY - MEDICINE [facility] Active, Pending, and Scheduled Orders This section includes a listing of several types of active, pending, and scheduled orders, including clinic medications orders, diagnostic test orders, procedure orders and consult orders; where the start date of the order is 45 days before the date of the Encounter or 45 days after the date of theEncounter. The data comes from all [place] treatment facilities. Test Date/Time Test Type Test Details Facility Name Mar 16, 2025 12:00 AM Laboratory - Chemi stry Order OCCULT BLOOD FIT X1 SCREEN (MFP ONLY) STOOL FECES SP [facility] Social History: Smoking Status (Most current) and Tobacco Use (All prior to encounter date) This section includes the most current, and the historical, smoking and tobacco- related health factors from the [place] facility where the Encounter took place. Current Smoking Status This section includes the most current smoking, or tobacco-related health factor, from the [place] facility where the Encounter took place. Date/Time Current Smoking Status Comment Facil ity December 08, 2024 11:31 AM NH-TOBACCO NEVER U SED CIGARETTES [facility] Tobacco Use History This section includes a history of the smoking, or tobacco-related health factors, that were collected on or before the date of the Encounter. The data comes from the [place] facility where the Encounter took place. Date/Time Smoking Status/Tobacco Use Comment F carley December 08, 2024 11:31 AM VA-TOBACCO NEVER U SED OTHER TYPE [facility] [place] [facility] Encounter Notes: All associated encounter notes This section contains the clinical notes associated to the Encounter. Date/Time Encounter Note(s) Provider Source Mar 26, 2025 12:03 PM OPTOMETRY NOTE: LOCAL TITLE: OPTOMETRY NOTE STANDARD TITLE: OPTOMETRY NOTE DATE OF NOTE: MAR 26, 2025@12:03 ENTRY DATE: MAR 26, 2025@12:03:42 AUTHOR: LAKESHIA HENSON EXP COSIGNER: URGENCY: STATUS: COMPLETED OPTOMETRY NOTE Has ADDENDA The quote provided below is for informational purposes only. Please verify prior to the creation of a purchase order. [employer] [id number] RX INFORMATION OD +2.00 -0.50 X90 Add:0.00 Pzm:0.00 Dir: Prz2:0.00 Dir2: OS +2.25 -1.00 X7 Add:0.00 Pzm:0.00 Dir: Prz2:0.00 Dir2: FITTING INFORMATION FPD: NPD: Gage:R:29 L:28.5 SEG HT:R: L: Tint:None Shade:None [place] Billable Items FRAME: [employer] -367 Right Lens: POLY SINGLE VISION 1.586 POLY Left Lens: POLY SINGLE VISION 1.586 POLY CLIN items 0001 - Single Vision - Glass Plastic Poly -- The quote provided below is for informational purposes only. Please verify prior to the creation of a purchase order. [employer] [id number] RX INFORMATION OD 0.00 -0.50 X90 Add:0.00 Pzm:0.00 Dir: Prz2:0.00 Dir2: OS +0.25 -1.00 X7 Add:0.00 Pzm:0.00 Dir: Prz2:0.00 Dir2: FITTING INFORMATION FPD: NPD: Gage:R:31.5 L:30.5 SEG HT:R: L: Tint:None Shade:None VA Billable Items FRAME: [place] [id number] Right Lens: POLY SINGLE VISION 1.586 POLY Left Lens: POLY SINGLE VISION 1.586 POLY CLIN items 0001 - Single Vision - Glass Plastic Poly /violet/ LAKESHIA HENSON MILLINERY SALESPERSON Signed: 03/26/2025 12:04 Receipt Acknowledged By: 03/26/2025 16:11 /violet/ DARIUS AMEZCUA V [facility] Health Trade Manager Optometry for ZO RIVERA 03/26/2025 ADDENDUM STATUS: COMPLETED PDS loading rack supervisor fit 2 single vision eyeglasses on 03/26/2025. OPT HT entered consults as requested for provider signature. /violet/ [facility]A [facility] Trade Manager Optometry Signed: 03/26/2025 16:12 LAKESHIA HENSON [facility]
--- OUTSIDE RECORDS SUMMARY | 2025-03-31 05:59 | XMS_ITS | Encounter Summary ---
Author Name [facility] Organization [facility] Address [address] [place] [id number] Care Team Providers Care Property Officer Name Role Phone MELONIE VIVEROS Primary Care [...] BASIC FAMIL Y Apr 22, [phone] [id number] FERNANDA PORRAS PATIENT MEDICARE (WNR) MEDICARE (M) PART A Sep 27, 2008 PART A [id number] FERNANDA PORRAS PATIENT MEDICARE (WNR) MEDICARE (M) PART B Sep 27, 2008 PART B [id number] FERNANDA PORRAS PATIENT Selected Encounter This section includes the information on record at [place] for the Encounter. Date/Time Encounter Type Encounter Description Reason Provider Source Mar 31, 2025 09:59 AM Outpatient Encounter OPTOMETRY YAZAN TAYLOR Encounter Template Text not used by [facility] Plan of Treatment: Future Appointments (+ 6 months) and Future Tests (+/- 45 days) The Plan of Treatment section includes future care activities for the [facility] [place] [facility] This section includes future appointments and future orders which are active, pending or scheduled. Future Appointments This section includes appointments that were scheduled to occur 6 months from the date of the Encounter, up to a maximum of 20 appointments. The data comes from all [facility] facilities. Appointment Date/Time Appointment Type Appointme nt Facility Name Jun 16, 2025 11:00 AM AMBULATORY - MEDICINE [facility] Active, Pending, and Scheduled Orders This section includes a listing of several types of active, pending, and scheduled orders, including clinic medications orders, diagnostic test orders, procedure orders and consult orders; where the start date of the order is 45 days before the date of the Encounter or 45 days after the date of theEncounter. The data comes from all [facility]. Test Date/Time Test Type Test Details Facility Name Mar 16, 2025 12:00 AM Laboratory - Chemi stry Order OCCULT BLOOD FIT X1 SCREEN ([facility] ONLY) STOOL FECES SP [facility] Social History: Smoking Status (Most current) and Tobacco Use (All prior to encounter date) This section includes the most current, and the historical, smoking and tobacco- related health factors from the [place] facility where the Encounter took place. Current Smoking Status This section includes the most current smoking, or tobacco-related health factor, from the [place] facility where the Encounter took place. Date/Time Current Smoking Status Comment Facil ity December 08, 2024 11:31 AM [place]-TOBACCO NEVER U SED CIGARETTES [facility] Tobacco Use History This section includes a history of the smoking, or tobacco-related health factors, that were collected on or before the date of the Encounter. The data comes from the [place] facility where the Encounter took place. Date/Time Smoking Status/Tobacco Use Comment F acility December 08, 2024 11:31 AM [place]-TOBACCO NEVER U SED OTHER TYPE [facility] Encounter Notes: All associated encounter notes This section contains the clinical notes associated to the Encounter. Date/Time Encounter Note(s) Provider Source Mar 31, 2025 09:59 AM OPTOMETRY SECURE MESSAGING: LOCAL TITLE: OPTOMETRY SECURE MESSAGING STANDARD TITLE: OPTOMETRY SECURE MESSAGING DATE OF NOTE: MAR 31, 2025@09:59 ENTRY DATE: MAR 31, 2025@09:59:39 AUTHOR: YAZAN TAYLOR COSIGNER: URGENCY: STATUS: COMPLETED ------Original Message ------- Sent: 03/30/2025 09:58 PM ET From: MENA PORRAS To: [facility]OM[facility]RY[facility]@ Subject: General:Prescription Preservative-Free Eye Drops Dr. SANTANA, can you please prescribe preservative-Free Eye Drops for my ongoing painful dry eye problems. I have been using over the counter eye drops for years now. It is getting expensive and not really working. Do not know if my i surface will cover it, but can we try? Josefa, [address] [facility]. Thank you ------Original Message ------- Sent: 03/31/2025 09:58 AM ET From: YAZAN TAYLOR To: MENA PORRAS Subject: General:Prescription Preservative-Free Eye Drops HI, I am covering for Dr. Santana as is is off until . I will send you some PF lubricating drops and I hope you find these to be more effective for your dry eye. They will come in the mail in a few day. Yazan Taylor OD Chief of Optometry // Yazan Taylor OD CHIEF OF OPTOMETRY Signed: 03/31/2025 09:59 YAZAN TAYLOR [place] [facility]
--- OUTSIDE RECORDS SUMMARY | 2025-03-31 08:05 | XMS_ITS | Continuity of Care Document ---
Author Name [facility] Organization [facility] Care Team Providers Care Manager Of Tax Name Role Phone [facility] Unavailable Unavailable Problems Combined list of problems [...] [facility] Asthma (SCT [id number]) Active Condition [facility] [...] Entered By: MARIE ARMANDO Comment: TURP 2024 [facility] Overactive Urinary Bladder (SCT [id number]) Active Condition Jan 02, 2025 Entered By: MELONIE LYNN Comment: mariah w Urol ([facility]) [facility] Psoriasis Active Condition [facility] Diagnosis: ICD-10-CM Z46.0 Encounter for fit/adjst of spectacles and contact lenses Active Diagnosis [facility] Diagnosis: ICD-10-CM H40.013 Open angle with borderline findings, low risk, bilateral Active Diagnosis [facility] Diagnosis: ICD-10-CM F43.12 Post-traumatic stress disorder, chronic Active Diagnosis [facility] Diagnosis: ICD-10-CM Z46.1 Encounter for fitting and adjustment of hearing aid Active Diagnosis [facility] Diagnosis: ICD-10-CM F41.9 Anxiety disorder, unspecified Active Diagnosis [facility] Diagnosis: ICD-10-CM H90.3 Sensorineural hearing loss, bilateral Active Diagnosis [facility] Diagnosis: ICD-10-CM Z02.89 Encounter for other administrative examinations Active Diagnosis [facility] Medications Combined list of [...] TWICE DAILY ORAL ACTIVE EVON LEAL 2024 [facility] CARBOXYMETH YLCELLULOSE NA 0.5% (PF) SOLN,OPH,UD INSTILL 1 DROP INTO EACH EYE EVERY 4 HOURS WHILE AWAKE FOR DRY EYE OPHTHA LMIC SUSPEND ED 04/01/2026 [id number] Jody TAYLOR 2024 150 [facility] ESCITALOPRA M OXALATE 20MG TAB TAKE ONE-HALF TABLET BY MOUTH ONCE DAILY ORAL ACTIVE RAMOS-VE CCHIO,EVON ENRIQUE TANIYA 2024 [facility] IBUPROFEN TAB TAKE 200 MG BY MOUTH EVERY 8 HOURS NEEDED ORAL ACTIVE RAMOS-VE [facility] SANTATHEA MONAHAN 2024 [facility] MIRABEGRON 50MG TAB,SA TAKE ONE TABLET BY MOUTH TWICE DAILY ORAL ACTIVE RAMOS-VE [facility] SANTATHEA MONAHAN 2024 [facility] OMEPRAZOLE 20MG CAP,EC TAKE 2 CAPSULES BY MOUTH EVERY MORNING 30 MINUTES BEFORE BREAKFAS T ORAL ACTIVE RAMOS-VE [facility] SANTATHEA MONAHAN 2024 [facility] ROSUVASTATI N CA 10MG TAB TAKE ONE-HALF TABLET BY MOUTH ONCE DAILY ORAL ACTIVE RAMOS-VE [facility] SANTATHEA MONAHAN 2024 [facility] TADALAFIL 5MG TAB TAKE ONE TABLET BY MOUTH NEEDED ORAL ACTIVE RAMOS-VE [facility] SANTATHEA MONAHAN 2024 [facility] TROSPIUM CL 20MG TAB TAKE ONE TABLET BY MOUTH ONCE DAILY ORAL ACTIVE RAMOS-VE [facility],EVON SANTATHEA MONAHAN 2024 [facility] Allergies, Adverse Reactions, Alerts Combined list of allergies from Department of Defense and Veterans Affairs facilities. It does not include entries that were removed or entered in error. Substance Category Reaction Severity Reaction type Status Date Reported Comments Source CONTRAST MEDIA Propensity to adverse reactions to drug (finding) [facility] Immunizations Combined list of available immunizations from the Department of Defense and Veterans Affairs facilities. Immunization Series Date Given Administered By Site Reaction Lot Number CVX Code Drug Preparation Supervisor Canning Status Comments Source INFLUENZA, UNSPECIFIED FORMULATION 2023 88 complet ed HISTORICA L INFORMATI ON - FROM OTHER [facility] [place] [facility] Results Combined list of recent chemistry, hematology [...] For additional information , please refer to [email or web address] (This link is being provided for information al/ educational purposes only.) Test Performed by [employer], [employer] [facility], [address] [place] [address] Arturo Coello M.D., Ph.D., Director of Laboratorie s , CLIA [id number] TEST PERFORMED AT: , Ordering Provider: [facility] Report Released Date/Time: December 09, 2024 10:31 AM Reporting Lab: [facility] [address] [facility] [address] Performing Lab: [facility] [address] [address] [facility] CBC LEUKOCYTES [#/VOLUME] IN BLOOD BY AUTOMATED COUNT 4.38 10*3/uL 4.50 - 11.00 12/09 L Specimen Type: BLOOD No comment entered. Ordering Provider: [facility] Report Released Date/Time: December 09, 2024 10:31 AM Reporting Lab: [facility] [address] [facility] [address] Performing Lab: [facility] [address] [facility] [address] [facility] CBC ERYTHROCYT ES [#/VOLUME] IN BLOOD BY AUTOMATED COUNT 5.36 10*6/uL 4.23 - 5.66 12/09 Specimen Type: BLOOD No comment entered. Ordering Provider: KAITLYNN EASTON Report Released Date/Time: December 09, 2024 10:31 AM Reporting Lab: [facility] [address] [facility] [address] Performing Lab: [facility] [address] [facility] [address] [facility] CBC HEMOGLOBIN [MASS/VOLU ME] IN BLOOD 15.2 g/dL 12.8 - 17 12/09 Specimen Type: BLOOD No comment entered. Ordering Provider: KAITLYNN EASTON Report Released Date/Time: December 09, 2024 10:31 AM Reporting Lab: [facility] [place] [facility] [address] [facility] [address] Performing Lab: [facility] [place] [facility] [address] [facility] [address] [facility] CBC HEMATOCRIT [VOLUME FRACTION] OF BLOOD BY AUTOMATED COUNT 45.9 39.2 - 50.4 12/09 Specimen Type: BLOOD No comment entered. Ordering Provider: KAITLYNN EASTON Report Released Date/Time: December 09, 2024 10:31 AM Reporting Lab: [facility] [place] [facility] [address] [facility] [address] Performing Lab: [facility] [address] [facility] [address] [facility] CBC MCV [ENTITIC VOLUME] BY AUTOMATED COUNT 85.6 fL 82 - 99 12/09 Specimen Type: BLOOD No comment entered. Ordering Provider: KAITLYNN EASTON Report Released Date/Time: December 09, 2024 10:31 AM Reporting Lab: [facility] [place] [facility] [address] [facility] [address] Performing Lab: [facility] [address] [facility] [address] [facility] CBC MCHC [MASS/VOLU ME] BY AUTOMATED COUNT 33.1 g/dL 30.8 - 35.1 12/09 Specimen Type: BLOOD No comment entered. Ordering Provider: KAITLYNN EASTON Report Released Date/Time: December 09, 2024 10:31 AM Reporting Lab: [facility] [place] [facility] [address] [facility] [address] Performing Lab: [facility] [place] [facility] [address] [facility] [address] [facility] [place] [facility] CBC PLATELETS [#/VOLUME] IN BLOOD BY AUTOMATED COUNT 217 10*3/uL 140 - 360 12/09 Specimen Type: BLOOD No comment entered. Ordering Provider: KAITLYNN EASTON Report Released Date/Time: December 09, 2024 10:31 AM Reporting Lab: [facility] [place] [facility] [address] [facility] [address] Performing Lab: [facility] [place] [facility] [address] [facility] [address] [facility] CBC PLATELET MEAN VOLUME [ENTITIC VOLUME] IN BLOOD BY AUTOMATED COUNT 10.5 fL 9.2 - 12.4 12/09 Specimen Type: BLOOD No comment entered. Ordering Provider: KAITLYNN EASTON Report Released Date/Time: December 09, 2024 10:31 AM Reporting Lab: [facility] [place] [facility] [address] [facility] [address] Performing Lab: [facility] [place] [facility] [address] [facility] [address] [facility] [place] [facility] CBC ERYTHROCYT E DISTRIBUTI ON WIDTH [RATIO] BY AUTOMATED COUNT 13.2 12.0 - 16.0 12/09 Specimen Type: BLOOD No comment entered. Ordering Provider: KAITLYNN EASTON Report Released Date/Time: December 09, 2024 10:31 AM Reporting Lab: [facility] [address] [facility] [address] Performing Lab: [facility] [address] [facility] [address] [facility] [place] [facility] CBC MCH [ENTITIC MASS] BY AUTOMATED COUNT 28.4 pg 26.2 - 32.6 12/09 Specimen Type: BLOOD No comment entered. Ordering Provider: KAITLYNN EASTON Report Released Date/Time: December 09, 2024 10:31 AM Reporting Lab: [facility] [address] [facility] [address] Performing Lab: [facility] [place] [facility] [address] [facility] [address] [facility] [place] [facility] LIVER FUNCTION PROTEIN [MASS/VOLU ME] IN SERUM OR PLASMA 7.6 g/dL 6.4 - 8.3 12/09 Specimen Type: SERUM No comment entered. Ordering Provider: KAITLYNN EASTON Report Released Date/Time: December 09, 2024 10:31 AM Reporting Lab: [facility] [address] [facility] [address] Performing Lab: [facility] [place] [facility] [address] [facility] [address] [facility] [place] [facility] LIVER FUNCTION ALBUMIN [MASS/VOLU ME] IN SERUM OR PLASMA BY BROMOCRESO L PURPLE (BCP) DYE BINDING METHOD 4.5 g/dL 3.5 - 5.2 12/09 Specimen Type: SERUM No comment entered. Ordering Provider: KAITLYNN EASTON Report Released Date/Time: December 09, 2024 10:31 AM Reporting Lab: [facility] [address] [facility] [address] Performing Lab: [facility] [address] [facility] [address] [facility] [facility] LIVER FUNCTION ALKALINE PHOSPHATAS E [ENZYMATIC ACTIVITY/V OLUME] IN SERUM OR PLASMA 65 U/L 40 - 150 12/09 Specimen Type: SERUM No comment entered. Ordering Provider: KAITLYNN EASTON Report Released Date/Time: December 09, 2024 10:31 AM Reporting Lab: [facility] [place] [facility] [address] [facility] [address] Performing Lab: [facility] [place] [facility] [address] [facility] [address] [facility] LIVER FUNCTION ASPARTATE AMINOTRANS FERASE [ENZYMATIC ACTIVITY/V OLUME] IN SERUM OR PLASMA BY WITH P-5'-P 25 U/L 5 - 34 12/09 Specimen Type: SERUM No comment entered. Ordering Provider: KAITLYNN EASTON Report Released Date/Time: December 09, 2024 10:31 AM Reporting Lab: [facility] [place] [facility] [address] [facility] [address] Performing Lab: [facility] [place] [facility] [address] [facility] [address] [facility] W[facility]N [facility] LIVER FUNCTION ALANINE AMINOTRANS FERASE [ENZYMATIC ACTIVITY/V OLUME] IN SERUM OR PLASMA BY WITH P-5'-P 37 U/L 0 - 55 12/09 Specimen Type: SERUM No comment entered. Ordering Provider: KAITLYNN EASTON Report Released Date/Time: December 09, 2024 10:31 AM Reporting Lab: [facility] [place] [facility] [address] [facility] [address] Performing Lab: [facility] [place] [facility] [address] [facility] [address] [facility]N [facility] LIVER FUNCTION BILIRUBIN. TOTAL [MASS/VOLU ME] IN SERUM OR PLASMA 0.7 mg/dL 0.2 - 1.2 12/09 Specimen Type: SERUM No comment entered. Ordering Provider: KAITLYNN EASTON Report Released Date/Time: December 09, 2024 10:31 AM Reporting Lab: [facility] [place] [facility] [address] [facility] [address] Performing Lab: [facility] [place] [facility] [address] [facility] [address] [facility] [facility] BASIC METABOLI C PANEL (fasting ) UREA NITROGEN [MASS/VOLU ME] IN SERUM OR PLASMA 22 mg/dL 8 - 26 12/09 Specimen Type: SERUM No comment entered. Ordering Provider: KAITLYNN EASTON Report Released Date/Time: December 09, 2024 10:31 AM Reporting Lab: [facility] [place] [facility] [address] [facility] [address] Performing Lab: [facility] [place] [facility] [address] [facility] [address] [place] [facility] [place] [facility] BASIC METABOLI C PANEL (fasting ) GLUCOSE [MASS/VOLU ME] IN SERUM OR PLASMA 90 mg/dL 65 - 100 12/09 Specimen Type: SERUM No comment entered. Ordering Provider: KAITLYNN EASTON Report Released Date/Time: December 09, 2024 10:31 AM Reporting Lab: [facility] [place] [facility] [address] [facility] [address] Performing Lab: [facility] [place] [facility] [address] [facility] [address] [facility] [place] [facility] BASIC METABOLI C PANEL (fasting ) SODIUM [MOLES/VOL UME] IN SERUM OR PLASMA 141 mmol/L 136 - 145 12/09 Specimen Type: SERUM No comment entered. Ordering Provider: KAITLYNN EASTON Report Released Date/Time: December 09, 2024 10:31 AM Reporting Lab: [facility] [place] [facility] [address] [facility] [address] Performing Lab: [facility] [place] [facility] [address] [facility] [address] [facility] BASIC METABOLI C PANEL (fasting ) POTASSIUM [MOLES/VOL UME] IN SERUM OR PLASMA 4.2 mmol/L 3.5 - 5.1 12/09 Specimen Type: SERUM No comment entered. Ordering Provider: KAITLYNN EASTON Report Released Date/Time: December 09, 2024 10:31 AM Reporting Lab: [facility] [place] [facility] [address] [facility] [address] Performing Lab: [facility]RL W[facility] [address] [facility] [address] [facility]OSPITALRRUSSELL MEDICAL CENTERN [facility]ITALUSE [facility] BASIC METABOLI C PANEL (fasting ) CHLORIDE [MOLES/VOL UME] IN SERUM OR PLASMA 108 mmol/L 98 - 107 12/09 H Specimen Type: SERUM No comment entered. Ordering Provider: KAITLYNN EASTON Report Released Date/Time: December 09, 2024 10:31 AM Reporting Lab: [facility]ITALRL TRN [facility] [address] [facility] [address] Performing Lab: [facility]RL [facility] [address] [facility] [address] [facility]ITALRL TRN [facility]ITALUSE [facility] BASIC METABOLI C PANEL (fasting ) CARBON DIOXIDE, TOTAL [MOLES/VOL UME] IN SERUM OR PLASMA 26 meq/L 22 - 29 12/09 Specimen Type: SERUM No comment entered. Ordering Provider: KAITLYNN EASTON Report Released Date/Time: December 09, 2024 10:31 AM Reporting Lab: [facility] [place] [facility] [address] [facility] [address] Performing Lab: [facility]RL W[facility]N [facility] [address] [facility] [address] [facility]ITALRL TRN [facility]ITALUSE [facility] BASIC METABOLI C PANEL (fasting ) CALCIUM [MASS/VOLU ME] IN SERUM OR PLASMA 9.9 mg/dL 8.4 - 10.2 12/09 Specimen Type: SERUM No comment entered. Ordering Provider: KAITLYNN EASTON Report Released Date/Time: December 09, 2024 10:31 AM Reporting Lab: [facility] [place] [facility] [address] [facility] [address] Performing Lab: [facility] [place] [facility] [address] [facility] [address] [facility] [place] [facility] BASIC METABOLI C PANEL (fasting ) CREATININE [MASS/VOLU ME] IN SERUM OR PLASMA 0.99 mg/dL 0.72 - 1.25 12/09 Specimen Type: SERUM No comment entered. Ordering Provider: KAITLYNN EASTON Report Released Date/Time: December 09, 2024 10:31 AM Reporting Lab: [facility] [place] [facility] [address] [facility] [address] Performing Lab: [place] [facility] [place] [address] [address] [place] [facility] [place] [place] [facility] BASIC METABOLI C PANEL (fasting ) GLOMERULAR FILTRATION RATE/1.73 SQ M.PREDICTE D [VOLUME RATE/AREA] IN SERUM, PLASMA OR BLOOD BY CREATININE -BASED FORMULA (CKD-EPI 2020) 88 mL/min 60 12/09 Specimen Type: SERUM No comment entered. Ordering Provider: KAITLYNN EASTON Report Released Date/Time: December 09, 2024 10:31 AM Reporting Lab: [facility] [place] [facility] [address] [facility] [address] Performing Lab: [facility] [place] [facility] [address] [facility] [address] [facility] [place] [facility] LIPID PANEL FASTING CHOLESTERO L [MASS/VOLU ME] IN SERUM OR PLASMA 217 mg/dL 12/09 H Specimen Type: SERUM No comment entered. Ordering Provider: KAITLYNN EASTON Report Released Date/Time: December 09, 2024 10:31 AM Reporting Lab: [place] [facility] [place] [facility] [address] [facility] [address] Performing Lab: [facility] [place] [facility] [address] [place] [address] [facility] [place] [facility] LIPID PANEL FASTING TRIGLYCERI DE [MASS/VOLU ME] IN SERUM OR PLASMA 76 mg/dL 0 - 150 12/09 Specimen Type: SERUM No comment entered. Ordering Provider: KAITLYNN EASTON Report Released Date/Time: December 09, 2024 10:31 AM Reporting Lab: [facility] [place] [facility] [address] [facility] [address] Performing Lab: [facility] [place] [place] [facility] [address] [facility] [address] [facility] LIPID PANEL FASTING CHOLESTERO L IN LDL [MASS/VOLU ME] IN SERUM OR PLASMA BY CALCULAMARAINELAO N 149 mg/dL 0 - 129 12/09 H Specimen Type: SERUM No comment entered. Ordering Provider: KAITLYNN EASTON Report Released Date/Time: December 09, 2024 10:31 AM Reporting Lab: [facility] [place] [facility] [address] [facility] [address] Performing Lab: [facility] [place] [facility] [address] [facility] [address] [facility] LIPID PANEL FASTING CHOLESTERO L.TOTAL/CH OLESTEROL IN HDL [MASS RATIO] IN SERUM OR PLASMA 4.1 12/09 Specimen Type: SERUM No comment entered. Ordering Provider: KAITLYNN EASTON Report Released Date/Time: December 09, 2024 10:31 AM Reporting Lab: [facility] [place] [facility] [address] [place] [address] Performing Lab: [facility] [place] [facility] [address] [facility] [address] [facility]RL [facility]N [place] [facility] LIPID PANEL FASTING CHOLESTERO L IN HDL [MASS/VOLU ME] IN SERUM OR PLASMA 53 mg/dL 40 12/09 Specimen Type: SERUM No comment entered. Ordering Provider: KAITLYNN EASTON Report Released Date/Time: December 09, 2024 10:31 AM Reporting Lab: [facility] [place] [facility] [address] [facility] [address] Performing Lab: [facility] [place] [facility] [address] [facility] [address] [facility] [place] [facility] PSA PROSTATE SPECIFIC AG [MASS/VOLU ME] IN SERUM OR PLASMA BY IMMUNOASSA Y 0.9 ng/mL 0.0 - 4.0 12/09 Specimen Type: SERUM No comment entered. Ordering Provider: KAITLYNN EASTON Report Released Date/Time: December 09, 2024 10:31 AM Reporting Lab: [place] [facility] [place] [facility] [address] [facility] [address] Performing Lab: [place] [facility] [place] [facility] [address] [facility] [address] [facility] [place] [facility] URINALYS IS COLOR OF URINE Light-Ye llow 12/09 Specimen Type: URINE Comment: If Glucose = >500 and Ketones are positive, please alert the Physician. Ordering Provider: KAITLYNN EASTON Report Released Date/Time: December 09, 2024 10:31 AM Reporting Lab: [place] [facility] [place] [facility] [address] [facility] [address] Performing Lab: [facility] [place] [facility] [address] [facility] [address] [place] [facility] [place] [place] [facility] URINALYS IS APPEARANCE OF URINE Clear 12/09 Specimen Type: URINE Comment: If Glucose = >500 and Ketones are positive, please alert the Physician. Ordering Provider: KAITLYNN EASTON Report Released Date/Time: December 09, 2024 10:31 AM Reporting Lab: [facility] [place] [facility] [address] [facility] [address] Performing Lab: [facility] [place] [facility] [address] [facility] [address] [facility] [place] [facility] URINALYS IS GLUCOSE [MASS/VOLU ME] IN URINE Normalmg /dL 12/09 Specimen Type: URINE Comment: If Glucose = >500 and Ketones are positive, please alert the Physician. Ordering Provider: KAITLYNN EASTON Report Released Date/Time: December 09, 2024 10:31 AM Reporting Lab: [facility] [place] [facility] [address] [facility] [address] Performing Lab: [facility] [place] [facility] [address] [facility] [address] [facility] [place] [facility] URINALYS IS KETONES [MASS/VOLU ME] IN URINE BY TEST STRIP NEGATIVE mg/dL 12/09 Specimen Type: URINE Comment: If Glucose = >500 and Ketones are positive, please alert the Physician. Ordering Provider: KAITLYNN EASTON Report Released Date/Time: December 09, 2024 10:31 AM Reporting [facility] [place] [facility] [address] [facility] [address] Performing Lab: [place] [facility] [place] [address] [address] [facility] [place] [facility] URINALYS IS ERYTHROCYT ES [PRESENCE] IN URINE SEDIMENT BY LIGHT MICROSCOPY NEGATIVE mg/dL 12/09 Specimen Type: URINE Comment: If Glucose = >500 and Ketones are positive, please alert the Physician. Ordering Provider: KAITLYNN EASTON Report Released Date/Time: December 09, 2024 10:31 AM Reporting Lab: [facility] [place] [facility] [address] [facility] [address] Performing Lab: [facility] [place] [address] [address] [facility] [place] [facility] URINALYS IS PROTEIN [MASS/VOLU ME] IN URINE BY TEST STRIP 20 mg/dL 05/13 /2025 Specimen Type: URINE Comment: If Glucose = >500 and Ketones are positive, please alert the Physician. Ordering Provider: KAITLYNN EASTON Report Released Date/Time: December 09, 2024 10:31 AM Reporting Lab: [facility] [place] [facility] [address] [facility] [address] Performing Lab: [facility] [place] [facility] [address] [facility] [address] [facility] [place] [facility] URINALYS IS NITRITE [PRESENCE] IN URINE NEGATIVE mg/dL 12/09 Specimen Type: URINE Comment: If Glucose = >500 and Ketones are positive, please alert the Physician. Ordering Provider: KAITLYNN EASTON Report Released Date/Time: December 09, 2024 10:31 AM Reporting Lab: [facility] [place] [facility] [address] [facility] [address] Performing Lab: [facility] [place] [facility] [address] [facility] [address] [facility] [place] [facility] URINALYS IS BILIRUBIN. TOTAL [PRESENCE] IN URINE NEGATIVE mg/dL 12/09 Specimen Type: URINE Comment: If Glucose = >500 and Ketones are positive, please alert the Physician. Ordering Provider: KAITLYNN EASTON Report Released Date/Time: December 09, 2024 10:31 AM Reporting Lab: [facility] [place] [facility] [address] [facility] [address] Performing Lab: [facility] [place] [facility] [address] [facility] [address] [facility] [place] [facility] URINALYS IS SPECIFIC GRAVITY OF URINE BY REFRACTOME TRY 1.027 1.016 - 1.022 12/09 H Specimen Type: URINE Comment: If Glucose = >500 and Ketones are positive, please alert the Physician. Ordering Provider: KAITLYNN EASTON Report Released Date/Time: December 09, 2024 10:31 AM Reporting Lab: [facility] [place] [facility] [address] [facility] [address] Performing Lab: [facility] [place] [facility] [address] [facility] [address] [facility] [place] URINALYS IS PH OF URINE BY TEST STRIP 7.0 5.0 - 9.0 12/09 Specimen Type: URINE Comment: If Glucose = >500 and Ketones are positive, please alert the Physician. Ordering Provider: KAITLYNN EASTON Report Released Date/Time: December 09, 2024 10:31 AM Reporting Lab: [facility] [place] [facility] [address] [facility] [address] Performing Lab: [facility] [place] [facility] [address] [facility] [address] [facility] [place] URINALYS IS UROBILINOG EN [MASS/VOLU ME] IN URINE BY TEST STRIP Normalmg /dL <2.0 - 2.0 12/09 Specimen Type: URINE Comment: If Glucose = >500 and Ketones are positive, please alert the Physician. Ordering Provider: KAITLYNN EASTON Report Released Date/Time: December 09, 2024 10:31 AM Reporting Lab: [facility] [place] [facility] [address] [facility] [address] Performing Lab: [facility] [place] [facility] [address] [facility] [address] [facility] [place] URINALYS IS LEUKOCYTE ESTERASE [PRESENCE] IN URINE BY TEST STRIP SMALL 12/09 Specimen Type: URINE Comment: If Glucose = >500 and Ketones are positive, please alert the Physician. Ordering Provider: KAITLYNN EASTON Report Released Date/Time: December 09, 2024 10:31 AM Reporting Lab: [facility] [place] [facility] [address] [facility] [address] Performing Lab: [facility] [place] [facility] [address] [facility] [address] [facility] [place] [facility] HEPATITI S C ANTIBODY (HCV)-AR C HEPATITIS C VIRUS AB [PRESENCE] IN SERUM NON-REAC TIVE 12/09 Specimen Type: SERUM Comment: Hep C Ab: No HCV antibody detected. If recent infection is suspected or other evidence suggests HCV infection, consider HCV nucleic acid testing Ordering Provider: KAITLYNN EASTON Report Released Date/Time: December 09, 2024 10:31 AM Reporting Lab: [facility] [address] [facility] [address] Performing Lab: [facility] [address] [facility] [address] [facility] HIV 1&2 Ag/Ab SCREEN HIV 1+2 AB+HIV1 P24 AG [PRESENCE] IN SERUM OR PLASMA BY IMMUNOASSA Y NON-REAC TIVE 12/09 Specimen Type: SERUM Comment: Hep C Ab: No HCV antibody detected. If recent infection is suspected or other evidence suggests HCV infection, consider HCV nucleic acid testing Ordering Provider: KAITLYNN EASTON Report Released Date/Time: December 09, 2024 10:31 AM Reporting Lab: [facility] [address] [facility] [address] Performing Lab: [facility] [address] [facility] [address] [facility] MICROSCO PIC AUTOMATE D, URINE LEUKOCYTES [#/AREA] IN URINE SEDIMENT BY MICROSCOPY HIGH POWER FIELD 11-20/[H PF] 0 - 5 12/09 H Specimen Type: URINE Comment: If Glucose = >500 and Ketones are positive, please alert the Physician. Ordering Provider: KAITLYNN EASTON Report Released Date/Time: December 09, 2024 10:31 AM Reporting Lab: [facility] [address] [facility] [address] Performing Lab: [facility]ITALRR[facility]ERN [facility] [address] [facility] [address] [facility] [place] [facility] MICROSCO PIC AUTOMATE D, URINE MUCUS [#/AREA] IN URINE SEDIMENT BY MICROSCOPY LOW POWER FIELD FEW/[LPF ] 12/09 Specimen Type: URINE Comment: If Glucose = >500 and Ketones are positive, please alert the Physician. Ordering Provider: KAITLYNN EASTON Report Released Date/Time: December 09, 2024 10:31 AM Reporting Lab: [facility] [place] [facility] [address] [facility] [address] Performing Lab: [facility] [place] [facility] [address] [facility] [address] [facility] [place] [facility] MICROSCO PIC AUTOMATE D, URINE ERYTHROCYT ES [#/AREA] IN URINE SEDIMENT BY MICROSCOPY HIGH POWER FIELD 6-10/[HP F] 0 - 3 12/09 H Specimen Type: URINE Comment: If Glucose = >500 and Ketones are positive, please alert the Physician. Ordering Provider: KAITLYNN EASTON Report Released Date/Time: December 09, 2024 10:31 AM Reporting Lab: [facility] [place] [facility] [address] [facility] [address] Performing Lab: [facility] [place] [facility] [address] [facility] [address] [facility] [place] [facility] Vital Signs Combined list of inpatient and outpatient Vital Signs from Department of Defense and Veterans Affairs, ranging from 12 months to all on record, depending upon the facility. Vital Sign Value Date Comments Source SYSTOLIC BLOOD PRESSURE 122 01/02/20 25 10:06:04 [facility] [place] [facility] DIASTOLIC BLOOD PRESSURE 82 025 10:06:04 [facility] [place] [facility] PULSE OXIMETRY 97 % 01/01/2025 10:06:04 [facility] [place] [facility] WEIGHT 163.5 01/01/2025 10:06:04 [facility] [place] [facility] BMI 25 kg/m2 01/01/2025 10:06:04 [facility] [place] [facility] PAIN 3 01/01/2025 10:06:04 [facility] [id number] 04/29 [facility] [place] [place] Encounter [id number] Diagnos is: ICD-10- CM Z02.89 Encount er for other adminis trative examCAMDEN Singh 09/01 [facility] [place] Encounter [id number] [facility] [place] Encounter [id number] [facility] [place] HEARING AID XM&SLCTN BINAURL [id number] Diagnos is: ICD-10- CM H90.3 Sensori neural hearing loss, bilater al DAVID BARAJAS 12/09 [facility] Out[facility] Encounter [id number] 12/09 [facility] [place] [place] [facility] OFFICE O/P NEW MOD 45 MIN [id number] Diagnos is: ICD-10- CM F41.9 Anxiety disorde r, unspeci fied PHYLICIA CAMP 01/01 [facility] [place] [place] [facility] HEARING SERVICE [id number] Diagnos is: ICD-10- CM Z46.1 Encount er for fitting and adjustm ent of hearing aid DAVID BARAJAS 01/01 [facility] [place] PSYCH DIAGNOSTIC EVALUATION [id number] Diagnos is: ICD-10- CM F43.12 Post-tr aumatic stress disorde r, chronic MORIS,BR ITTNEY M 01/09 [facility] [place] [place] [facility] Outpatient Encounter [id number] LISA SOARES A 01/09 [facility] [place] [place] [facility] PSYCH DIAGNOSTIC EVALUATION [id number] Diagnos is: ICD-10- CM F43.12 Post-tr aumatic stress disorde r, chronic PAIGE AMADO N 02/03 [facility] [place] [place] [facility] Outpatient Encounter [id number] 02/17 [facility] [place] [place] 1 [id number] Diagnos is: ICD-10- CM H40.013 Open angle with borderl ine finding s, low risk, bilater al LEONA FAJARDO 03/26 [facility] FIT SPECTACLES MONOFOCAL [id number] Diagnos is: ICD-10- CM Z46.0 Encount er for fit/adj st of spectac les and contact lenses LEONA FAJARDO 03/26 [facility] [place] [facility] Outpatient Encounter [id number] SOCRATES TAYLOR 03/31 [facility] [place] [facility] Social History Combined list of available smoking, tobacco, and other social history from Department of Defense and Veterans Affairs facilities. Social History Type Response Date Comment Sourc e Tobacco smoking status ILIS VA-TOBACCO NEVER USED CIGARETTES 12/08/2024 [facility] [place] [facility] History of tobacco use VA-TOBACCO NEVER USED OTHER TYPE 12/08/2024 [facility] Plan of Care List of future care activities from Department of Veterans Affairs facilities. Additional future care activities may be listed in the Assessment and Plan section. Date/Time Care Activity Care Activity Detail Facili ty 06/16/2025 AMBULATORY - MEDICINE AMBULATORY - MEDICI [facility]
--- NOTE | 2025-03-31 11:36 | MHC.OFFVIS ---
Intake Visit Reasons: questions about sgy Intake Note: Patient is present for: QUESTIONS ABOUT SURGERY TELEHEALTH Urology Medication:TADALAFIL,MYBETRIQ, FINASTERIDE Blood Thinner:NONE Data Administrator Required: No Accompanied by: Self / Same As Patient Allergies No Known Allergies Allergy (Verified 03/31/25 11:40) HPI Comments Details: Phuc is a pleasant East male. He is seen for the following urologic conditions - lower urinary tract symptoms - kidney stones Telemedicine Evaluation 15 min Consultation [employer] [facility] Video Office cystoscopy showed prostatic regrowth with remnant Uro lift Dystrophic calcification present Questions answered regarding plan procedure We will target removal of excess tissue with removal of visible UroLift Catheter expected for 1 day Has finished antibiotics We will start low-dose Bactrim Initial UA pH 6, 1+ leukocytes Chronic prostate infection Prostatic fluid expression Microgen 03/23 - Klebsiella sensitive to Levaquin and Bactrim Lower urinary tract symptoms Initially storage predominant with some bladder instability Has undergone multiple prostate procedures June 2020 underwent UroLift - [facility] May 2023 [facility] prostate artery embolization March 2024 holmium laser enucleation - removal of UroLift clips July 2024 TURP for dystrophic calcification Imaging CT scan 09/23 - punctate bilateral renal stones, bladder mild wall thickening posteriorly, at the base of bladder is a partially calcified area 3.2 x 2.6 cm with surgical clips. Recommendation consider cystoscopy. Kidney stones 2 prior interventions 24 hour urine with low citrate Review of Systems Const All systems reviewed & are unremarkable except as noted in HPI and below Reports no additional complaints Resp Reports no additional complaints GI Reports no additional complaints Reports as per HPI Musc Reports no additional complaints Physical Exam Telemedicine evaluation Appropriate responses Regular breathing rate and rhythm HEENT Head: Yes normal to inspection Ears: hearing grossly normal bilaterally Eyes General: appearance normal, both eyes and all related structures Neck Neck: Yes normal visual inspection Chest Chest palpation & inspection: normal inspection of the chest Resp Effort & Inspection: normal respiratory effort and able to speak in complete sentences Telehealth Telehealth Telehealth Platform: [employer] Location of provider rendering services: practice address Location of patient: address on file Patient Identification confirmed using: Name, : Yes Telehealth method: video Patient verbally consented to treatment: Yes Patient verbally consented to billing insurance company: Yes Patient informed of any privacy concerns related to visit: Yes Assessment & Plan Assessment & Plan (1) Dystrophic calcification of bladder: Code(s): N32.89 - Other specified disorders of bladder Category: Medical (2) BPH without urinary obstruction or lower urinary tract symptoms: Code(s): N40.0 - Benign prostatic hyperplasia without lower urinary tract symptoms Category: Medical Plan GreenLight laser prostate with bipolar resection Risks, benefits and alternatives to therapy were discussed. These include but are not limited to infection, bleeding, damage to local organs and tissues, need for further interventions. Anesthetic risks regarding cardiac arrhythmia, blood clots, and potential mortality were discussed. The patient understands the typical recovery time and the outpatient nature of the procedure. After consideration of these risks the patient gives full informed consent and they wish to move ahead with the procedure. Patient Instructions: This note is constructed using voice recognition software. While every effort has been made to ensure accuracy professor of architecture errors may have been included. Imaging studies, laboratory and physical exam results were discussed and reviewed in detail. No major barriers to patient understanding were identified. An opportunity to ask questions regarding the treatment plan was provided. All questions were answered. The patient expressed understanding and agreement with the above treatment plan. The patient is aware they should contact our office by phone for worsening of their current condition or the appearance of new urologic symptoms. Compliance is encouraged with any medications and followup testing that is ordered. It is a privilege to participate in the urologic care of your patient. If you have any questions or concerns regarding treatment for the above conditions, or other urologic issues, please do not hesitate to contact me. The office telephone contact is [phone]. Sincerely, Dr Yordy Gómez MD, ADRIEN[facility] - Urology Compassionate Specialist Care for the Genitourinary System Coding Level of Care Code Tele Est Pt Level 3 (50708) Complex EM visit Add On G2211 Diagnoses Dystrophic calcification of bladder N32.89 BPH without urinary obstruction or lower urinary tract symptoms N40.0
--- OUTSIDE RECORDS SUMMARY | 2025-03-31 13:11 | XMS_ITS | Clinical Summary ---
Author Organization Merged With [facility] Address [address] [place] [phone] Phone Care Team Providers Care Community Support Worker Name Role Phone Cheryl Senior MD Primary Care Provider [phone] Allergies Active Allergy Reactions Criticality Noted Date [...] EDT Office Visit Adult & Pediatric Dermatology, [address] [address] Steffanie Villa, GERALD [address] [place] [phone] [email or web address] Health Maintenance Due Date Last Done Comments [...] FOBT 2011 SIGMOIDOSCOPY 2011 VIRTUAL COLONOSCOPY 2011 INFLUENZA VACCINE (#1) 2025 HEPATITIS A VACCINES Aged Out No long [...] file Insurance MEDICARE PART A & B [facility] MEDICARE PART A & B [facility] MEDICARE PART A & [facility] A & B [facility] MEDICARE PART A & B [facility] MEDICARE PART A & B [facility] MEDICARE PART A & [facility] MEDIC[facility] PART A & B [facility] Care Teams Community Support Worker Relationship Specialty Start Date End Date Cheryl Senior MD [address] [place] [id number] PCP - General Family Medicine 12/06/23 Additional Source Comments The information contained in this document represents components of the legal health record. It is not the complete legal health record.Merged With [facility]
--- OUTSIDE RECORDS SUMMARY | 2025-03-31 13:11 | XMS_ITS | Clinical Summary ---
Author Organization [facility] ity Address [address] [place] [address] Care Team Providers Care Corporate Receptionist Name Role Phone Unavailable Primary Care Provider [...] 2016 Zoster Vaccines (1 of 2) 2016 Depression Screening 07/30/2024 COVID-19 Vaccine (1 - 2023-2 5 season) 2025 Influenza Vaccine (#1) 2025 HIB Vaccines Aged [...]
== END 2025-03-31 12:39 | disposition home or self-care (01) ==
LOC: HO.HUSH 11:38
PROVIDERS: PCP Family Medicine; Visit Provider Urology
DX: N32.89 Other specified disorders of bladder (principal); N40.0 Benign prostatic hyperplasia without lower urinary tract symptoms
CPT/HCPCS: 99213; G2211

== ENCOUNTER → 2025-04-06 11:49 | Day surgery (SDC) | payer MEDICARE, BC, SELFPAY ==
--- OUTSIDE RECORDS SUMMARY | 2025-03-16 07:20 | XMS_ITS | Continuity of Care Document ---
Author Name [facility] Organization [facility] Care Team Providers Care Line Haul Driver Name Role Phone [facility] Unavailable Unavailable Problems Combined list of problems [...] [facility] Asthma (SCT [id number]) Active Condition [facility] [...] Entered By: MARIE ARMANDO Comment: TURP 2024 [facility] Overactive Urinary Bladder ([facility] [id number]) Active Condition Jan 02, 2025 Entered By: MELONIE LYNN Comment: mariah w Urol ([facility]) [facility] Psoriasis Active [...] for other administrative examinations Active Diagnosis [facility] Medications Combined list of [...] TWICE DAILY ORAL ACTIVE [facility] ESCITALOPRA M OXALATE 20MG TAB TAKE ONE-HALF TABLET BY MOUTH ONCE DAILY ORAL ACTIVE EVON LEAL 2024 [facility] IBUPROFEN TAB TAKE 200 MG BY MOUTH EVERY 8 HOURS NEEDED ORAL ACTIVE EVON LEAL 2024 [facility] MIRABEGRON 50MG TAB,SA TAKE ONE TABLET BY MOUTH TWICE DAILY ORAL ACTIVE EVON LEAL [facility]24 [facility] OMEPRAZOLE 20MG CAP,EC TAKE 2 CAPSULES BY MOUTH EVERY MORNING 30 MINUTES BEFORE BREAKFAS T ORAL ACTIVE [facility] SEGOVIAZABETH 2024 [facility] ROSUVASTATI N CA 10MG TAB TAKE ONE-HALF TABLET BY MOUTH ONCE DAILY ORAL ACTIVE [facility] RUSSOBETH 2024 [facility] TADALAFIL 5MG TAB TAKE ONE TABLET BY MOUTH NEEDED ORAL ACTIVE [facility] RUSSOBETH 2024 [facility] TROSPIUM CL 20MG TAB TAKE ONE TABLET BY MOUTH ONCE DAILY ORAL ACTIVE [facility] RUSSOBETH 2024 [facility] Allergies, Adverse Reactions, Alerts Combined list of allergies from Department of Defense and Veterans Affairs facilities. It does not include entries that were removed or entered in error. Substance Category Reaction Severity Reaction type Status Date Reported Comments Source CONTRAST MEDIA Propensity to adverse reactions to drug (finding) Eruption active [facility] Immunizations Combined list of available immunizations from the Department of Defense and Veterans Affairs facilities. 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 Status Comments Source INFLUENZA, UNSPECIFIED FORMULATION 2023 88 complet ed HISTORICA L INFORMATI ON - FROM OTHER [facility] Results Combined list of recent chemistry, hematology [...] For additional information , please refer to [email or web address]/faq/F [email or web address] (This link is being provided for information al/ educational purposes only.) Test Performed by [facility], [facility], [address] [place], [place] Arturo Coello M.D., Ph.D., Director of Laboratorie s , CLIA [id number] TEST PERFORMED AT: , Ordering Provider: KAITLYNN EASTON Report Released Date/Time: December 09, 2024 10:31 AM Reporting Lab: [facility] [place] [facility] [address] [facility] [address] Performing Lab: [facility] [place] [facility] [address] [facility] [place] [facility] CBC LEUKOCYTES [#/VOLUME] IN BLOOD BY AUTOMATED COUNT 4.38 10*3/uL 4.50 - 11.00 12/09 L Specimen Type: BLOOD No comment entered. Ordering Provider: KAITLYNN EASTON Report Released Date/Time: December 09, 2024 10:31 AM Reporting Lab: [facility] [place] [facility] [address] [facility] [address] Performing Lab: [facility] [place] [facility] [address] [facility] [address] [facility] [place] [facility] CBC ERYTHROCYT ES [#/VOLUME] IN BLOOD BY AUTOMATED COUNT 5.36 10*6/uL 4.23 - 5.66 12/09 Specimen Type: BLOOD No comment entered. Ordering Provider: KAITLYNN EASTON Report Released Date/Time: December 09, 2024 10:31 AM Reporting Lab: [facility] [place] [facility] [address] [facility] [address] Performing Lab: [facility] [place] [facility] [address] [facility] [address] [facility] [place] [facility] CBC HEMOGLOBIN [MASS/VOLU ME] IN BLOOD 15.2 g/dL 12.8 - 17 12/09 Specimen Type: BLOOD No comment entered. Ordering Provider: KAITLYNN EASTON Report Released Date/Time: December 09, 2024 10:31 AM Reporting Lab: [facility] [address] [facility] [address] Performing Lab: [facility] [address] [facility] [address] [facility] [place] [facility] CBC HEMATOCRIT [VOLUME FRACTION] OF BLOOD BY AUTOMATED COUNT 45.9 39.2 - 50.4 12/09 Specimen Type: BLOOD No comment entered. Ordering Provider: KAITLYNN EASTON Report Released Date/Time: December 09, 2024 10:31 AM Reporting Lab: [facility] [address] [facility] [address] Performing Lab: [facility] [address] [facility] [address] [facility] [place] [facility] CBC MCV [ENTITIC VOLUME] BY AUTOMATED COUNT 85.6 fL 82 - 99 12/09 Specimen Type: BLOOD No comment entered. Ordering Provider: KAITLYNN EASTON Report Released Date/Time: December 09, 2024 10:31 AM Reporting Lab: [facility] [address] [facility] [address] Performing Lab: [facility] [address] [facility] [address] [facility] [place] [facility] CBC MCHC [MASS/VOLU ME] BY AUTOMATED COUNT 33.1 g/dL 30.8 - 35.1 12/09 Specimen Type: BLOOD No comment entered. Ordering Provider: KAITLYNN EASTON Report Released Date/Time: December 09, 2024 10:31 AM Reporting Lab: [facility] [address] [facility] [address] Performing Lab: [facility] [address] [facility] [address] [facility] [place] [facility] CBC PLATELETS [#/VOLUME] IN BLOOD BY AUTOMATED COUNT 217 10*3/uL 140 - 360 12/09 Specimen Type: BLOOD No comment entered. Ordering Provider: KAITLYNN EASTON Report Released Date/Time: December 09, 2024 10:31 AM Reporting Lab: [facility] [place] [facility] [address] [facility] [address] Performing Lab: [facility] [place] [facility] [address] [facility] [address] [facility] [place] [facility] CBC PLATELET MEAN VOLUME [ENTITIC VOLUME] IN BLOOD BY AUTOMATED COUNT 10.5 fL 9.2 - 12.4 12/09 Specimen Type: BLOOD No comment entered. Ordering Provider: KAITLYNN EASTON Report Released Date/Time: December 09, 2024 10:31 AM Reporting Lab: [facility] [place] [facility] [address] [facility] [address] Performing Lab: [facility] [place] [facility] [address] [facility] [address] [facility] [place] [facility] CBC ERYTHROCYT E DISTRIBUTI ON WIDTH [RATIO] BY AUTOMATED COUNT 13.2 12.0 - 16.0 12/09 Specimen Type: BLOOD No comment entered. Ordering Provider: KAITLYNN EASTON Report Released Date/Time: December 09, 2024 10:31 AM Reporting Lab: [facility] [place] [facility] [address] [facility] [address] Performing Lab: [facility] [place] [facility] [address] [facility] [address] [facility] [place] [facility] CBC MCH [ENTITIC MASS] BY AUTOMATED COUNT 28.4 pg 26.2 - 32.6 12/09 Specimen Type: BLOOD No comment entered. Ordering Provider: KAITLYNN EASTON Report Released Date/Time: December 09, 2024 10:31 AM Reporting Lab: [facility] [place] [facility] [address] [facility] [address] Performing Lab: [facility] [address] [facility] [address] [facility] LIVER FUNCTION PROTEIN [MASS/VOLU ME] IN SERUM OR PLASMA 7.6 g/dL 6.4 - 8.3 12/09 Specimen Type: SERUM No comment entered. Ordering Provider: KAITLYNN EASTON Report Released Date/Time: December 09, 2024 10:31 AM Reporting Lab: [facility] [place] [facility] [address] [facility] [address] Performing Lab: [facility] [place] [facility] [address] [facility] [address] [facility] LIVER FUNCTION ALBUMIN [MASS/VOLU ME] IN SERUM OR PLASMA BY BROMOCRESO L PURPLE (BCP) DYE BINDING METHOD 4.5 g/dL 3.5 - 5.2 12/09 Specimen Type: SERUM No comment entered. Ordering Provider: KAITLYNN EASTON Report Released Date/Time: December 09, 2024 10:31 AM Reporting Lab: [facility] [place] [facility] [address] [facility] [address] Performing Lab: [facility] [place] [facility] [address] [facility] [address] [facility] [place] LIVER FUNCTION ALKALINE PHOSPHATAS E [ENZYMATIC ACTIVITY/V OLUME] IN SERUM OR PLASMA 65 U/L 40 - 150 12/09 Specimen Type: SERUM No comment entered. Ordering Provider: KAITLYNN EASTON Report Released Date/Time: December 09, 2024 10:31 AM Reporting Lab: [facility] [address] [facility] [address] Performing Lab: [facility] [place] [facility] [address] [facility] [address] [facility] [place] [facility] LIVER FUNCTION ASPARTATE AMINOTRANS FERASE [ENZYMATIC ACTIVITY/V OLUME] IN SERUM OR PLASMA BY WITH P-5'-P 25 U/L 5 - 34 12/09 Specimen Type: SERUM No comment entered. Ordering Provider: KAITLYNN EASTON Report Released Date/Time: December 09, 2024 10:31 AM Reporting Lab: [facility] [place] [facility] [address] [facility] [address] Performing Lab: [facility] [place] [facility] [address] [facility] [address] [facility] [facility] LIVER FUNCTION ALANINE AMINOTRANS FERASE [ENZYMATIC ACTIVITY/V OLUME] IN SERUM OR PLASMA BY WITH P-5'-P 37 U/L 0 - 55 12/09 Specimen Type: SERUM No comment entered. Ordering Provider: KAITLYNN EASTON Report Released Date/Time: December 09, 2024 10:31 AM Reporting Lab: [facility] [place] [facility] [address] [facility] [address] Performing Lab: [facility] [place] [facility] [address] [facility] [address] [facility] LIVER FUNCTION BILIRUBIN. TOTAL [MASS/VOLU ME] IN SERUM OR PLASMA 0.7 mg/dL 0.2 - 1.2 12/09 Specimen Type: SERUM No comment entered. Ordering Provider: KAITLYNN EASTON Report Released Date/Time: December 09, 2024 10:31 AM Reporting Lab: [facility] [place] [facility] [address] [facility] [address] Performing Lab: [facility] [place] [facility] [address] [facility] [address] [facility] [place] [facility] BASIC METABOLI C PANEL (fasting ) UREA NITROGEN [MASS/VOLU ME] IN SERUM OR PLASMA 22 mg/dL 8 - 26 12/09 Specimen Type: SERUM No comment entered. Ordering Provider: KAITLYNN EASTON Report Released Date/Time: December 09, 2024 10:31 AM Reporting Lab: [facility] [place] [facility] [address] [facility] [address] Performing Lab: [facility] [place] [facility] [address] [facility] [address] [facility] [place] [facility] BASIC METABOLI C PANEL (fasting ) GLUCOSE [MASS/VOLU ME] IN SERUM OR PLASMA 90 mg/dL 65 - 100 12/09 Specimen Type: SERUM No comment entered. Ordering Provider: KAITLYNN EASTON Report Released Date/Time: December 09, 2024 10:31 AM Reporting Lab: [facility] [place] [facility] [address] [facility] [address] Performing Lab: [facility] [place] [facility] [address] [facility] [address] [facility] [place] [facility] BASIC METABOLI C PANEL (fasting ) SODIUM [MOLES/VOL UME] IN SERUM OR PLASMA 141 mmol/L 136 - 145 12/09 Specimen Type: SERUM No comment entered. Ordering Provider: KAITLYNN EASTON Report Released Date/Time: December 09, 2024 10:31 AM Reporting Lab: [facility] [place] [facility] [address] [facility] [address] Performing Lab: [facility] [place] [place] [facility] [address] [facility] [address] [facility] [place] [facility] BASIC METABOLI C PANEL (fasting ) POTASSIUM [MOLES/VOL UME] IN SERUM OR PLASMA 4.2 mmol/L 3.5 - 5.1 12/09 Specimen Type: SERUM No comment entered. Ordering Provider: KAITLYNN EASTON Report Released Date/Time: December 09, 2024 10:31 AM Reporting Lab: [facility] [place] [facility] [address] [facility] [address] Performing Lab: [facility] [place] [facility] [address] [facility] [address] [facility] [place] [facility] BASIC METABOLI C PANEL (fasting ) CHLORIDE [MOLES/VOL UME] IN SERUM OR PLASMA 108 mmol/L 98 - 107 12/09 H Specimen Type: SERUM No comment entered. Ordering Provider: KAITLYNN EASTNO Report Released Date/Time: December 09, 2024 10:31 AM Reporting Lab: [facility] [place] [facility] [address] [facility] [address] Performing Lab: [facility] [address] [facility] [address] [facility] BASIC METABOLI C PANEL (fasting ) CARBON DIOXIDE, TOTAL [MOLES/VOL UME] IN SERUM OR PLASMA 26 meq/L 22 - 29 12/09 Specimen Type: SERUM No comment entered. Ordering Provider: KAITLYNN EASTON Report Released Date/Time: December 09, 2024 10:31 AM Reporting Lab: [facility] [place] [address] [address] Performing Lab: [facility] [address] [address] [facility] BASIC METABOLI C PANEL (fasting ) CALCIUM [MASS/VOLU ME] IN SERUM OR PLASMA 9.9 mg/dL 8.4 - 10.2 12/09 Specimen Type: SERUM No comment entered. Ordering Provider: KAITLYNN EASTON Report Released Date/Time: December 09, 2024 10:31 AM Reporting Lab: [facility] [place] [place] [address] [address] Performing Lab: [facility] [place] [place] [address] [address] [facility] BASIC METABOLI C PANEL (fasting ) CREATININE [MASS/VOLU ME] IN SERUM OR PLASMA 0.99 mg/dL 0.72 - 1.25 12/09 Specimen Type: SERUM No comment entered. Ordering Provider: KAITLYNN EASTON Report Released Date/Time: December 09, 2024 10:31 AM Reporting Lab: [facility] [place] [facility] [address] [facility] [address] Performing Lab: [facility] [place] [facility] [address] [facility] [address] [facility] [place] [facility] BASIC METABOLI C PANEL (fasting ) GLOMERULAR FILTRATION RATE/1.73 SQ M.PREDICTE D [VOLUME RATE/AREA] IN SERUM, PLASMA OR BLOOD BY CREATININE -BASED FORMULA (CKD-EPI 2020) 88 mL/min 60 12/09 Specimen Type: SERUM No comment entered. Ordering Provider: KAITLYNN EASTON Report Released Date/Time: December 09, 2024 10:31 AM Reporting Lab: [facility] [place] [facility] [address] [facility] [address] Performing Lab: [facility] [place] [facility] [address] [facility] [address] [facility] [place] [facility] LIPID PANEL FASTING CHOLESTERO L [MASS/VOLU ME] IN SERUM OR PLASMA 217 mg/dL 12/09 H Specimen Type: SERUM No comment entered. Ordering Provider: KAITLYNN EASTON Report Released Date/Time: December 09, 2024 10:31 AM Reporting Lab: [facility] [place] [address] [address] Performing Lab: [facility] [place] [facility] [address] [facility] [address] [facility] [place] [facility] LIPID PANEL FASTING TRIGLYCERI DE [MASS/VOLU ME] IN SERUM OR PLASMA 76 mg/dL 0 - 150 12/09 Specimen Type: SERUM No comment entered. Ordering Provider: KAITLYNN EASTON Report Released Date/Time: December 09, 2024 10:31 AM Reporting Lab: [facility] [place] [place] [facility] [address] [facility] [address] Performing Lab: [facility] [place] [place] [address] [address] [facility] [place] [facility] LIPID PANEL FASTING CHOLESTERO L IN LDL [MASS/VOLU ME] IN SERUM OR PLASMA BY CALCULATAWANNA N 149 mg/dL 0 - 129 12/09 H Specimen Type: SERUM No comment entered. Ordering Provider: KAITLYNN EASTON Report Released Date/Time: December 09, 2024 10:31 AM Reporting Lab: [facility] [place] [place] [facility] [address] [facility] [address] Performing Lab: [facility] [place] [place] [facility] [address] [facility] [address] [facility] [place] [facility] LIPID PANEL FASTING CHOLESTERO L.TOTAL/CH OLESTEROL IN HDL [MASS RATIO] IN SERUM OR PLASMA 4.1 12/09 Specimen Type: SERUM No comment entered. Ordering Provider: KAITLYNN EASTON Report Released Date/Time: December 09, 2024 10:31 AM Reporting Lab: [facility] [place] [place] [facility] [address] [facility] [address] Performing Lab: [facility] [place] [facility] [address] [facility] [address] [facility] [place] [facility] LIPID PANEL FASTING CHOLESTERO L IN HDL [MASS/VOLU ME] IN SERUM OR PLASMA 53 mg/dL 40 12/09 Specimen Type: SERUM No comment entered. Ordering Provider: KAITLYNN EASTON Report Released Date/Time: December 09, 2024 10:31 AM Reporting Lab: [facility] [place] [place] [facility] [address] [facility] [address] Performing Lab: [facility] [place] [facility] [address] [facility] [address] [facility] [place] [facility] PSA PROSTATE SPECIFIC AG [MASS/VOLU ME] IN SERUM OR PLASMA BY IMMUNOASSA Y 0.9 ng/mL 0.0 - 4.0 12/09 Specimen Type: SERUM No comment entered. Ordering Provider: KAITLYNN EASTON Report Released Date/Time: December 09, 2024 10:31 AM Reporting Lab: [facility] [place] [facility] [address] [facility] [address] Performing Lab: [facility] [place] [facility] [address] [facility] [address] [facility] [place] [facility] URINALYS IS COLOR OF URINE Light-Ye llow 12/09 Specimen Type: URINE Comment: If Glucose = >500 and Ketones are positive, please alert the Physician. Ordering Provider: KAITLYNN EASTON Report Released Date/Time: December 09, 2024 10:31 AM Reporting Lab: [facility] [place] [facility] [address] [facility] [address] Performing Lab: [facility] [place] [facility] [address] [facility] [address] [facility] [place] [facility] URINALYS IS APPEARANCE OF URINE Clear 12/09 Specimen Type: URINE Comment: If Glucose = >500 and Ketones are positive, please alert the Physician. Ordering Provider: KAITLYNN EASTON Report Released Date/Time: December 09, 2024 10:31 AM Reporting Lab: [facility] [place] [facility] [address] [facility] [address] Performing Lab: [facility] [place] [facility] [address] [facility] [address] [facility] [place] [facility] URINALYS IS GLUCOSE [MASS/VOLU ME] IN URINE Normalmg /dL 12/09 Specimen Type: URINE Comment: If Glucose = >500 and Ketones are positive, please alert the Physician. Ordering Provider: KAITLYNN EASTON Report Released Date/Time: December 09, 2024 10:31 AM Reporting Lab: [facility] [place] [facility] [address] [facility] [address] Performing Lab: [facility] [place] [facility] [address] [facility] [address] [facility] [place] [facility] URINALYS IS KETONES [MASS/VOLU ME] IN URINE BY TEST STRIP NEGATIVE mg/dL 12/09 Specimen Type: URINE Comment: If Glucose = >500 and Ketones are positive, please alert the Physician. Ordering Provider: KAITLYNN EASTON Report Released Date/Time: December 09, 2024 10:31 AM Reporting Lab: [facility] [place] [facility] [address] [facility] [address] Performing Lab: [facility] [place] [address] [facility] [phone] [facility] URINALYS IS ERYTHROCYT ES [PRESENCE] IN URINE SEDIMENT BY LIGHT MICROSCOPY NEGATIVE mg/dL 12/09 Specimen Type: URINE Comment: If Glucose = >500 and Ketones are positive, please alert the Physician. Ordering Provider: KAITLYNN EASTON Report Released Date/Time: December 09, 2024 10:31 AM Reporting Lab: [facility] [address] [facility] [phone] Performing Lab: [facility] [address] [facility] [phone] [facility] URINALYS IS PROTEIN [MASS/VOLU ME] IN URINE BY TEST STRIP 20 mg/dL 12/09 Specimen Type: URINE Comment: If Glucose = >500 and Ketones are positive, please alert the Physician. Ordering Provider: KAITLYNN EASTON Report Released Date/Time: December 09, 2024 10:31 AM Reporting Lab: [facility] [address] [facility] [phone] Performing Lab: [facility] [address] [facility] [address] [facility] URINALYS IS NITRITE [PRESENCE] IN URINE NEGATIVE mg/dL 12/09 Specimen Type: URINE Comment: If Glucose = >500 and Ketones are positive, please alert the Physician. Ordering Provider: KAITLYNN EASTON Report Released Date/Time: December 09, 2024 10:31 AM Reporting Lab: [facility] [address] [facility] [address] Performing Lab: [facility] [address] [facility] [address] [facility] URINALYS IS BILIRUBIN. TOTAL [PRESENCE] IN URINE NEGATIVE mg/dL 12/09 Specimen Type: URINE Comment: If Glucose = >500 and Ketones are positive, please alert the Physician. Ordering Provider: KAITLYNN [facility] Report Released Date/Time: December 09, 2024 10:31 AM Reporting Lab: [facility] [place] [address] [address] Performing Lab: [facility] [place] [address] [address] [facility] [facility] URINALYS IS SPECIFIC GRAVITY OF URINE BY REFRACTOME TRY 1.027 1.016 - 1.022 12/09 H Specimen Type: URINE Comment: If Glucose = >500 and Ketones are positive, please alert the Physician. Ordering Provider: KAITLYNN EASTON Report Released Date/Time: December 09, 2024 10:31 AM Reporting Lab: [facility] [place] [address] [address] Performing Lab: [facility] [place] [facility] [address] [facility] [address] [facility] [place] [facility] URINALYS IS PH OF URINE BY TEST STRIP 7.0 5.0 - 9.0 12/09 Specimen Type: URINE Comment: If Glucose = >500 and Ketones are positive, please alert the Physician. Ordering Provider: KAITLYNN EASTON Report Released Date/Time: December 09, 2024 10:31 AM Reporting Lab: [facility] [place] [address] Performing Lab: [facility] [place] [facility] [address] [facility] [address] [facility] [place] [facility] URINALYS IS UROBILINOG EN [MASS/VOLU ME] IN URINE BY TEST STRIP Normalmg /dL <2.0 - 2.0 12/09 Specimen Type: URINE Comment: If Glucose = >500 and Ketones are positive, please alert the Physician. Ordering Provider: KAITLYNN EASTON Report Released Date/Time: December 09, 2024 10:31 AM Reporting Lab: [facility] [place] [facility] [address] [facility] [address] Performing Lab: [facility] [place] [facility] [address] [facility] [address] [facility] [place] [facility] URINALYS IS LEUKOCYTE ESTERASE [PRESENCE] IN URINE BY TEST STRIP SMALL 12/09 Specimen Type: URINE Comment: If Glucose = >500 and Ketones are positive, please alert the Physician. Ordering Provider: KAITLYNN EASTON Report Released Date/Time: December 09, 2024 10:31 AM Reporting Lab: [facility] [place] [facility] [address] [facility] [address] Performing Lab: [facility] [place] [facility] [address] [facility] [address] [facility] [place] [facility] HEPATITI S C ANTIBODY (HCV)-AR C HEPATITIS C VIRUS AB [PRESENCE] IN SERUM NON-REAC TIVE 12/09 Specimen Type: SERUM Comment: Hep C Ab: No HCV antibody detected. If recent infection is suspected or other evidence suggests HCV infection, consider HCV nucleic acid testing Ordering Provider: KAITLYNN EASTON Report Released Date/Time: December 09, 2024 10:31 AM Reporting Lab: [facility] [place] [facility] [address] [facility] [address] Performing Lab: [facility] [place] [facility] [address] [facility] [address] [facility] [place] [facility] HIV 1&2 Ag/Ab SCREEN HIV 1+2 AB+HIV1 P24 AG [PRESENCE] IN SERUM OR PLASMA BY IMMUNOASSA Y NON-REAC TIVE 12/09 Specimen Type: SERUM Comment: Hep C Ab: No HCV antibody detected. If recent infection is suspected or other evidence suggests HCV infection, consider HCV nucleic acid testing Ordering Provider: KAITLYNN EASTON Report Released Date/Time: December 09, 2024 10:31 AM Reporting Lab: [facility] [place] [facility] [address] [facility] [address] Performing Lab: [facility] [address] [facility] [address] [email or web address] [facility] MICROSCO PIC AUTOMATE D, URINE LEUKOCYTES [#/AREA] IN URINE SEDIMENT BY MICROSCOPY HIGH POWER FIELD 11-20/[H PF] 0 - 5 12/09 H Specimen Type: URINE Comment: If Glucose = >500 and Ketones are positive, please alert the Physician. Ordering Provider: KAITLYNN EASTON Report Released Date/Time: December 09, 2024 10:31 AM Reporting Lab: [facility] [place] [facility] [address] [facility] [address] Performing Lab: [facility] [address] [facility] [address] [facility] MICROSCO PIC AUTOMATE D, URINE MUCUS [#/AREA] IN URINE SEDIMENT BY MICROSCOPY LOW POWER FIELD FEW/[LPF ] 12/09 Specimen Type: URINE Comment: If Glucose = >500 and Ketones are positive, please alert the Physician. Ordering Provider: KAITLYNN EASTON Report Released Date/Time: December 09, 2024 10:31 AM Reporting Lab: [facility] [place] [facility] [address] [facility] [address] Performing Lab: [facility] [address] [facility] [address] [facility] [facility] MICROSCO PIC [...] Lab: [facility] [place] [facility] [address] [facility] [address] Performing Lab: [facility] [place] [facility] [address] [facility] [address] [facility] [place] [facility] Vital Signs Combined list of inpatient and [...] [facility] Out[facility] Encounter [id number] 04/29 [facility] [id number] Diagnos is: ICD-10- CM Z02.89 Encount er for other adminis trative examina CAMDEN Ramires 09/01 [facility] En[facility] [id number] 12/04 [facility] En[facility] [id number] 12/08 [facility] HEARING AID XM&SLCTN BINAURL [id number] Diagnos is: ICD-10- CM H90.3 Sensori neural hearing loss, bilater al ,DAVID OLE L 12/09 [facility] En[facility] [id number] 12/09 [facility] [place] [facility] OFFICE O/P NEW MOD 45 MIN [id number] Diagnos is: ICD-10- CM F41.9 Anxiety disorde r, unspeci fied PHYLICIA CAMP 01/01 [facility] [place] [facility] HEARING SERVICE [id number] Diagnos is: ICD-10- CM Z46.1 Encount er for fitting and adjustm ent of hearing aid SENIOR,DAVID OLE L 01/01 [facility] PSYCH DIAGNOSTIC EVALUATION [id number] Diagnos is: ICD-10- CM F43.12 Post-tr aumatic stress disorde r, chronic LISA SUBRAMANIAN M 01/09 [facility] En[facility] [id number] LISA SOARES 01/09 [facility] PSYCH DIAGNOSTIC EVALUATION [id number] Diagnos is: ICD-10- CM F43.12 Post-tr aumatic stress disorde r, chronic PAIGE AMADO 02/03 [facility] [id number] 02/17 [facility] Social History Combined list of available smoking, tobacco, and other social history from Department of Defense and Veterans Affairs facilities. Social History Type Response Date Comment Sourc e Tobacco smoking status NHIS UT-TOBACCO NEVER USED CIGARETTES 12/08/2024 [facility] History of tobacco use UT-TOBACCO NEVER USED OTHER TYPE 12/08/2024 [facility] Plan of Care List of future care activities from Department of Veterans Affairs facilities. Additional future care activities may be listed in the Assessment and Plan section. Date/Time Care Activity Care Activity Detail Facili ty 03/19/2025 AMBULATORY - MEDICINE AM[facility]ICI [facility]
--- OUTSIDE RECORDS SUMMARY | 2025-03-16 12:21 | XMS_ITS | Clinical Summary ---
Author Organization [facility] ity Address [address] [place] [address] Care Team Providers Care Pharmacy Clinical Coordinator Name Role Phone Unavailable Primary Care Provider [...]
--- OUTSIDE RECORDS SUMMARY | 2025-03-16 12:21 | XMS_ITS | Clinical Summary ---
Author Organization [facility] Address [address] [place] [address] Phone Care Team Providers Care Employee Benefits Director Name Role Phone Cheryl Senior MD Primary Care Provider [phone] Allergies Active Allergy Reactions Criticality Noted Date [...] a day. 60 tablet 11 12/12/2024 Active Social History Tobacco Use Types Packs/Day Years [...] EDT Office Visit Adult & Pediatric Dermatology, [address] [address] Steffanie Villa, GERALD [address] [place] [phone] [email or web address] Health Maintenance Due Date Last Done Comments [...] file Insurance MEDICARE PART A & B [facility] MEDICARE PART A & B [facility] MEDICARE PART A & B [facility] MEDIC[facility] PART A & B [facility] MEDICARE PART A & B [facility] MEDICARE PART A & B [facility] MEDICARE PART A & [facility] MEDIC[facility] PART A & B [facility] Care Teams Employee Benefits Director Relationship Specialty Start Date End Date Cheryl Senior MD [address] [place] [id number] PCP - General Family Medicine 12/06/23 Additional Source Comments The information contained in this document represents components of the legal health record. It is not the complete legal health record.[facility]
--- NOTE | 2025-04-03 09:17 | HO.ANESPROP2 ---
Documented by User: Merly Nguyen NP 04/03/25 09:17 HPI - Anesthesia Eval Consult details Narrative: 59 yr old male for Laser Ablation Prostate w/Green Light,with a Bipolar Loop Prostate TURP PMFSH Active Problems Active Problems: All Active Problems (Updated 04/02/25 @ 13:54 by Marcelina Mcarthur, GARTH) BPH without urinary obstruction or lower urinary tract symptoms (Acute) Dystrophic calcification of bladder (Acute) Prostatitis (Acute) Calcium kidney stones (Acute) Bladder instability (Acute) Urinary frequency (Acute) Urinary urgency (Acute) Past Medical History Medical History (Updated 04/06/25 @ 12:35 by Brissa Murcia, GARTH) Surgery, elective Kidney calculus Entrapment syndrome of left renal vein Barretts esophagus Chronic hepatitis B Elevated cholesterol GERD (gastroesophageal reflux disease) Renal calculi BPH (benign prostatic hyperplasia) Surgical History Surgical History (Updated 04/06/25 @ 12:38 by Brissa Murcia RN) H/O tooth extraction S/P TURP History of prostate surgery History of back surgery History of esophagogastroduodenoscopy (EGD) H/O colonoscopy Social History Social History Patient Tobacco Use Status: Never used Tobacco Have you been hit, kicked, punched, or otherwise hurt by someone within the past year? If so, by whom?: No Are you DNR?: No Advance Directives: No Advance Directives Information Provided: Yes Meds Allergies Allergy/AdvReac Type Severity Reaction Status Date / Time cat scan dye Allergy Redness of Uncoded 04/06/25 12:20 Skin Home Medications ?Medication ?Instructions ?Recorded ?Confirmed ?Last Taken ?Type fluticasone propionate 50 2 spray intranasal DAILY 02/13/25 04/02/25 Unknown History mcg/actuation nasal spray,suspension ibuprofen 600 mg tablet 600 mg PO TID PRN Pain 02/13/25 04/02/25 04/03/25 History omeprazole 20 mg capsule,delayed 20 mg PO BID 02/13/25 04/02/25 04/06/25 History release rosuvastatin 5 mg tablet 5 mg PO DAILY cholesterol 02/13/25 04/02/25 Unknown History sertraline 25 mg tablet 25 mg PO DAILY 02/13/25 04/02/25 Unknown History escitalopram oxalate 10 mg tablet 10 mg PO DAILY PRN anxiety 04/02/25 04/02/25 Unknown History loratadine 10 mg tablet (Claritin) 10 mg PO DAILY 04/02/25 04/02/25 Unknown History Documented by User: Stephanie Real MD 04/06/25 13:13 [facility] Past Medical History Medical History (Updated 04/06/25 @ 12:35 by Brissa Murcia RN) Surgery, elective Kidney calculus Entrapment syndrome of left renal vein Barretts esophagus Chronic hepatitis B Elevated cholesterol GERD (gastroesophageal reflux disease) Renal calculi BPH (benign prostatic hyperplasia) Family History Family history of problems with anesthesia: No Surgical History Surgical History (Updated 04/06/25 @ 12:38 by Brissa Murcia RN) H/O tooth extraction S/P TURP History of prostate surgery History of back surgery History of esophagogastroduodenoscopy (EGD) H/O colonoscopy History of Problems with Anesthesia: No Social History Social History Patient Tobacco Use Status: Never used Tobacco Have you been hit, kicked, punched, or otherwise hurt by someone within the past year? If so, by whom?: No Are you DNR?: No Advance Directives: No Advance Directives Information Provided: Yes Meds Allergies Allergy/AdvReac Type Severity Reaction Status Date / Time cat scan dye Allergy Redness of Uncoded 04/06/25 12:20 Skin Home Medications ?Medication ?Instructions ?Recorded ?Confirmed ?Last Taken ?Type fluticasone propionate 50 2 spray intranasal DAILY 02/13/25 04/02/25 Unknown History mcg/actuation nasal spray,suspension ibuprofen 600 mg tablet 600 mg PO TID PRN Pain 02/13/25 04/02/25 04/03/25 History omeprazole 20 mg capsule,delayed 20 mg PO BID 02/13/25 04/02/25 04/06/25 History release rosuvastatin 5 mg tablet 5 mg PO DAILY cholesterol 02/13/25 04/02/25 Unknown History sertraline 25 mg tablet 25 mg PO DAILY 02/13/25 04/02/25 Unknown History escitalopram oxalate 10 mg tablet 10 mg PO DAILY PRN anxiety 04/02/25 04/02/25 Unknown History loratadine 10 mg tablet (Claritin) 10 mg PO DAILY 04/02/25 04/02/25 Unknown History Exam Airway Mallampati Class: II TM Dist: >3cm Neck ROM: Full Heart: rrr Lungs: cta Assessment and Plan Assessment Anesthesia Assessment: Anesthesia Plan Discussed and Chart Reviewed Final Anesthetic Review Family History of Problems with Anesthesia: No History of Problems with Anesthesia: No NPO: Yes ASA Class: II Final Preanesthetic Review: No Changes in Pt Med Stat, Meds/Allgs Chart Reviewed and Consent Obtained/Reviewed Patient Risk: Low Procedure Risk: Low Anesthetic Plan Anesthetic Plan: GA Disposition: Standard PACU
[2025-04-06] VITALS (11 sets, daily range): BP systolic 122–136; BP diastolic 61–92; PULSE 60–88; RESP 15–18; TEMP 36.3–36.8; O2SAT 96–100; BMI 24.2
[2025-04-06] MEDS: Lactated Ringers 1,000 ML 100 ML IVCONT (12:17)
--- NOTE | 2025-04-06 13:58 | MHC.SHP ---
Pre-Procedural Eval Section A - 24 Hr Update-Section A only Date of Service: 04/06/25 The patient is an INPATIENT: No Changes since office visit: No Cold of Flu in the past 2 weeks, No New Medical Problems, No Changes in Medication and No Patient answered all questions The patient has been examined within 24 hours of the surgical procedure. The History & Physical has been completed within 30 days and I have reviewed it.: Yes Section B - Complete if H&P > 30 days Chief Complaint: Benign prostatic hyperplasia with lower urinary Details of Present Illness: GreenLight laser prostatectomy Allergies: Allergies Allergy/AdvReac Type Severity Reaction Status Date / Time cat scan dye Allergy Redness of Uncoded 04/06/25 12:20 Skin Plan I have reviewed the history and physical and performed a pertinent physical examination on my patient. No changes have occurred unless specified. Time Spent With Patient Time: Total time managing care of this patient today ____ minutes.
--- NOTE | 2025-04-06 15:18 | P.OP_ITS ---
Operative Note Operative Note Date of Service: 04/06/25 Narrative: PreOperative Diagnosis: Bladder outlet obstruction Post Operative Diagnosis: Bladder outlet obstruction Procedure: GreenLight Laser Enucleation of the prostate CPT 02960 - removal of foreign body from bladder Surgeon: Dr Yordy Gómez Anesthesia: General History of bladder outlet obstruction. He came for assessment having had 3 prior procedures done to his prostate - prostate artery embolization - UroLift clips placed - holmium laser procedure On cystoscopy in the office had lateral regrowth with dystrophic calcification. Submucosal Uro lift clip present on the left side. Recommendation for redo GreenLight laser with removal of UroLift clips Procedure: After informed consent was verified the patient was brought to the operating room and placed in a supine position. Anesthesia was administered per protocol. Patient was placed in modified dorsal lithotomy position and prepped and draped in a sterile fashion. Safety pause time-out was confirmed. Antibiotics have been given. A Twenty-four [place] laser cystoscope was inserted per urethra. No abnormalities were found of the anterior and bulbar urethra. The prostatic urethra shows regrowth of tissue on the left side and partial median lobe. Some regrowth on right side. Dystrophic calcification throughout the prostatic fossa. Visible UroLift wire on left side. The bladder was examined and both ureteric orifices were seen in their normal positions away from the area of interest. Bladder trabeculation Grade 1. Using a GreenLight laser with initial settings of 100 alexander incisions were made at the 5 and 7 o'clock position. The incisions were taken down from the bladder neck down to the area just proximal of the veru. The left side had more calcification in submucosal stones. As such the laser trigger guard was activated. Decision was made to first concentrated on the right-hand side. The 07:00 groove was developed down releasing tissue. This exposed the right lateral sidewall tissue. The laser was turned to 120 w. A 2nd groove was placed at the 11 o'clock position. The intervening tissue between the 07:00 and 11:00 groove was then ablated and enucleated. There was quite a number of small stones on that side. During the ablation it became clear that there was a UroLift clip in the right lateral remnant tissue. We were able to ablate an enucleated around the clip and spring of the clip. This was then drained through the resectoscope. Attention was directed back to the median lobe area. We were able to further develop the groove at 05:00. We had to come more medial than we wanted to avoid tissue reaction around the left Uro clip. Tissue showed dystrophic calcification and fat response. Again multiple small stones were seen submucosal indicative of prior inflammatory response. The median lobe was then ablated and enucleated tissue released into the bladder. An area just proximal to the veru was also cleared out. Once the medial area had been resected we were able to turn our attention to the left lateral tissue. This too was ablated and enucleated. The UroLift clip was exposed. The GreenLight laser bridge was removed and a regular cystoscope inserted. The remnant Uro clip was grasped and removed. We turned back to the laser bridge in continued with the GreenLight laser removing tissue along and up the left sidewall. Resection was then connected at the 12 o'clock position. The area of ablation was examined. Small area of bleeding on the right side of the 11 o'clock position was fulgurated and coagulated using the GreenLight laser. Tissue and debris were irrigated from the bladder. Both ureteric orifices were reviewed again in shown to be patent in away from any areas of energy damage. The apical area was reviewed and any stray mucosal ooze was controlled. A 22 [place] 30 cc balloon Vyas catheter was placed into the bladder using a flexible stylet. Irrigation was performed until efflux was clear with a Richard piston syringe. Fifty cc was placed in the balloon and gentle traction was plac ed. A snap was used to hold tension on the catheter to control bleeding during patient moved and transported. A drainage bag was placed. A belladonna and opiate suppository was placed per rectum for postprocedure pain control. Once transportation is complete to the PACU the snap will be removed. The patient tolerated the procedure well, he was extubated in the operating and transferred in a stable condition to the recovery area. Total Power 155 kJ Lasing time 23:42 Pathology: Prostate tissue Drains: Vyas catheter
== END | disposition home or self-care (01) ==
PROVIDERS: PCP Family Medicine; Visit Provider Urology
PROC: (CPT 52648; principal; 2025-04-06 13:50)
DX: N40.1 Benign prostatic hyperplasia with lower urinary tract symptoms (principal); N32.0 Bladder-neck obstruction; R35.0 Frequency of micturition; R39.15 Urgency of urination; N32.89 Other specified disorders of bladder; I87.1 Compression of vein; Z87.442 Personal history of urinary calculi; B18.1 Chronic viral hepatitis B without delta-agent; E78.00 Pure hypercholesterolemia, unspecified; K22.70 Barrett's esophagus without dysplasia; J30.9 Allergic rhinitis, unspecified; Z79.1 Long term (current) use of non-steroidal anti-inflammatories (NSAID); Z79.51 Long term (current) use of inhaled steroids; Z79.899 Other long term (current) drug therapy; Z91.041 Radiographic dye allergy status; Z98.890 Other specified postprocedural states
CPT/HCPCS: 52649; 88305; 88341; 88342; A4649; J0131; J1100; J1630; J1956; J2003; J2405; J2704; J3010

== ENCOUNTER → 2025-04-06 11:49 | Outpatient (BNV) | payer MEDICARE, BC, SELFPAY | PROVIDERS: PCP Family Medicine; Visit Provider Urology | DX: N13.8 Other obstructive and reflux uropathy (principal) | CPT/HCPCS: 52649 ==